=== PATIENT | female | born 1985 | race Caucasian/White ===

== ENCOUNTER 2019-11-10 17:34 | Emergency (ER) | payer MEDICAID, SELFPAY ==
[2019-11-10 18:51] VITALS: BP 150/83; PULSE 96; RESP 18; TEMP 36.4; O2SAT 99; BMI 35.2
== END 2019-11-10 19:30 | disposition left against medical advice (07) ==
LOC: ER 19:46
PROVIDERS: Emergency Provider Nurse Practitioner Family; Family Provider Nurse Practitioner Family; PCP Family Medicine
DX: Z53.21 Procedure and treatment not carried out due to patient leaving prior to being seen by health care provider (principal)
CPT/HCPCS: 99281

== ENCOUNTER 2019-11-11 18:52 | Emergency (ER) | payer MEDICAID, SELFPAY ==
[2019-11-11 19:42] VITALS: BP 121/81; PULSE 98; RESP 16; TEMP 36.7; O2SAT 98; BMI 35.2
[2019-11-11 20:58] VITALS: BP 106/61; PULSE 80; RESP 17; O2SAT 98
[2019-11-11] MEDS: acetaminophen-codeine 300-30mg Tablet 1 TAB PO ×2 (21:16→22:23)
[2019-11-11 22:23] VITALS: BP 117/78; PULSE 77; RESP 18; TEMP 36.8; O2SAT 98
--- NOTE | 2019-12-19 02:19 | ED_ITS ---
HPI - General Adult General: Chief complaint: General Medical Stated complaint: ABSCESS UNDER L ARM Time Seen by Provider: 11/11/19 20:21 History of Present Illness: HPI narrative: Abscess in her left arm for a few days getting bigger Onset (ago): day(s) Associated symptoms: Deny chest pain, dyspnea, headache(s), nausea, rash or vomiting Review of Systems Const: Denies: fever, chills or body aches Eyes: Denies: change in vision or blurry vision ENMT: Denies: throat pain or nasal congestion Card: Denies: chest pain or shortness of breath on exertion Resp: Denies: shortness of breath, productive cough or non-productive cough GI: Denies: abdominal pain, nausea or vomiting Musc: Denies: extremity pain Skin/Breast: Reports: other (Abscess left armpit); Denies: rash Neuro: Denies: headache Psych: Denies: anxiety or depression Finn/Lymph: Denies: easy bruising PFSH ED PFSH: Social History Smoking and tobacco status: current every day smoker Female Reproductive History: Date of last menstrual period: 11/04/19 Physical Exam Const: COMMON NORMALS: no apparent distress, average body habitus and oriented x3 HENMT: COMMON NORMALS: normocephalic HEAD & SCALP: normal to inspection and normocephalic FACE & SINUS: normal facial exam Eye: COMMON NORMALS: conjunctivae normal GENERAL EYE: normal appearance of both eyes CONJUNCTIVA: Yes conjunctivae normal Neck/C-Spine: COMMON NORMALS: no JVD Chest: COMMONS NORMALS: inspection of chest normal Resp: COMMON NORMALS: normal respiratory effort and clear to auscultation bilaterally AUSCULTATION: clear to auscultation bilaterally Cardio: COMMON NORMALS: no JVD, regular rate and regular rhythm RATE: regular rate RHYTHM: regular rhythm GI: COMMON NORMALS: normal to inspection, nondistended, normoactive bowel sounds Extremity: COMMON NORMALS: normal to inspection and full ROM Neuro: COMMON NORMALS: oriented x3 Skin: NARRATIVE SKIN EXAM: Erythematous area and left armpit without drainage Procedures Abscess I/D Site: other (Left armpit armpit) Side (if applicable): left Local Anesthetic: lidocaine 1% Amount of anesthesia used (mL): 2 Amount of fluid expressed (mL): 1.5 Course Vital Signs: Vital signs: Vital Signs Temperature 98.2 F 11/11/19 22:23 Pulse Rate 77 11/11/19 22:23 Respiratory Rate 18 11/11/19 22:23 Blood Pressure 117/78 11/11/19 22:23 Pulse Oximetry 98 11/11/19 22:23 Discharge Plan Discharge Patient Disposition: Home, Self-Care Clinical Impression: Abscess Condition: Stable Prescriptions: New Tylenol-Codeine #3 300-30 mg tablet 1 tab PO Q8H PRN (Reason: pain) Qty: 3 RF: 0 Discharge Orders: Discharge Order (Routine); Ordered 11/11/19 Ordered By: Omar Womack Referrals: Tamika Muse FNP [Family Provider] - Nita Soliman DO [Primary Care Provider] - Patient Instructions: Abscess Incision and Drainage (ED) Activity Restrictions/Additional Instructions: Follow-up with medical provider as directed. Take medications as prescribed. Return to the ER are your medical provider if condition worsens. Read and understand discharge instructions. Patient pull packing out in 2 days. Discharge Date/Time: 11/11/19 22:27 Coding Level of Care Code ED High Risk Case Manager for Joseline Cisneros
== END 2019-11-11 22:27 | disposition home or self-care (01) ==
PROVIDERS: Emergency Provider Emergency Medicine; Family Provider Nurse Practitioner Family; PCP Family Medicine
DX: L02.412 Cutaneous abscess of left axilla (principal); F17.210 Nicotine dependence, cigarettes, uncomplicated
CPT/HCPCS: 10060; 99281

== ENCOUNTER 2020-01-02 05:59 | Emergency (ER) | payer MEDICAID, SELFPAY ==
[2020-01-02 06:06] VITALS: BP 153/96; PULSE 101; RESP 16; O2SAT 96; BMI 35.2
--- NOTE | 2020-01-02 06:07 | W.ED.BACK ---
HPI - Back Pain/Injury General: Chief Complaint: Psychiatric Symptoms Stated Complaint: DEPRESSION/ OUT OF MEDS Time Seen by Provider: 01/02/20 06:05 Source: patient and EMS Mode of arrival: EMS History of Present Illness: HPI Narrative: 34-year-old female has a history of anxiety along with back pain. She states she has had back pain over the last few weeks the sharp in nature and rates it a 2 out of 10. She states she is also had difficulty sleeping and anxiety. She denies any suicidal or homicidal ideations. MD elicited complaint: back pain Pertinent past history: prior back pain Onset (ago): day(s) Timing: constant Severity: mild Pain scale (0-10): 3 Similar Symptoms Previously: Yes Quality: sharp Location: lumbar spine Radiation: none Exacerbating factors: none Relieving factors: none Associated symptoms: Reports no associated symptoms; Deny abdominal pain, chills, dysuria, fever(s), nausea or vomiting Work related injury: No Review of Systems Const: Denies: fever, chills, body aches or change in appetite Eyes: Denies: blurry vision or eye discomfort ENMT: Denies: throat pain or dental pain Card: Denies: chest pain Resp: Denies: shortness of breath GI: Denies: abdominal pain, nausea, vomiting or diarrhea : Denies: painful urination Musc: Reports: back pain; Denies: neck pain Skin/Breast: Denies: rash Neuro: Denies: headache Psych: Denies: depression Finn/Lymph: Denies: easy bruising All/Imm: Denies: hives PFS ED PFSH: Social History Smoking and tobacco status: current every day smoker Female Reproductive History: Date of last menstrual period: 11/04/19 Physical Exam Const: COMMON NORMALS: no apparent distress, oriented x3 and healthy appearing HENMT: COMMON NORMALS: normocephalic and head/scalp atraumatic HEAD & SCALP: normocephalic and atraumatic Eye: COMMON NORMALS: PERRL and EOMs intact bilaterally PUPIL: Yes PERRL Neck/C-Spine: COMMON NORMALS: full ROM and supple Chest: COMMONS NORMALS: inspection of chest normal and palpation of chest normal Resp: COMMON NORMALS: normal respiratory effort, no retractions, no use of accessory muscles and clear to auscultation bilaterally AUSCULTATION: clear to auscultation bilaterally Cardio: COMMON NORMALS: regular rate, regular rhythm and no murmurs RATE: regular rate RHYTHM: regular rhythm GI: COMMON NORMALS: normal to inspection, nondistended, normoactive bowel sounds, soft to palpation, non-tender and no masses PALPATION: Yes soft Back/Pelvis: OTHER: Paraspinal tenderness with no midline tenderness. Extremity: COMMON NORMALS: normal to inspection and full ROM Neuro: COMMON NORMALS: oriented x3, moves all extremities and no focal motor deficits Psych: COMMON NORMALS: mental status grossly normal, thought process normal and cooperative THOUGHT PROCESS: normal thought process Skin: COMMON NORMALS: no rashes or lesions noted and no wounds GENERAL SKIN EXAM: no rashes or lesions noted Course Vital Signs: Vital signs: Vital Signs Pulse Rate 93 01/02/20 06:41 Respiratory Rate 17 01/02/20 06:41 Blood Pressure 102/66 01/02/20 06:41 Pulse Oximetry 100 01/02/20 06:41 MDM - Back Pain/Injury MDM Narrative: Medical decision making narrative: Patient presents with back pain that is chronic in nature. Exam here is benign. Patient also has anxiety with no suicidality. Patient is stable for discharge and is return if worsening. Discharge Plan Discharge Patient Disposition: Home, Self-Care Clinical Impression: Anxiety Low back pain Qualifiers: Chronicity: acute Back pain laterality: bilateral Sciatica presence: without sciatica Qualified Code(s): M54.5 - Low back pain Condition: Stable Prescriptions: New Robaxin-750 750 mg tablet 750 mg PO Q6H Qty: 30 RF: 0 EC-Naprosyn 500 mg tablet,delayed release (DR/EC) 500 mg PO BID PRN (Reason: pain) Qty: 20 RF: 0 gabapentin 300 mg capsule 300 mg PO Q8H Qty: 60 RF: 0 hydroxyzine HCl 10 mg tablet 10 mg PO Q8H PRN (Reason: anxiety) Qty: 30 RF: 0 propranolol 20 mg tablet 10 mg PO BID Qty: 60 RF: 0 trazodone 100 mg tablet 100 mg PO DAILY Qty: 20 RF: 0 Geodon 60 mg capsule 60 mg PO BID Qty: 60 RF: 0 fluoxetine 20 mg capsule 20 mg PO DAILY Qty: 30 RF: 0 No Action Tylenol-Codeine #3 300-30 mg tablet 1 tab PO Q8H PRN (Reason: pain) Qty: 3 RF: 0 Discharge Orders: Discharge Order (Routine); Ordered 01/02/20 Ordered By: Marisa Pimentel Referrals: Tamika Muse FNP [Family Provider] - Nita Soliman DO [Primary Care Provider] - 1-3 days Discharge Diet: Advance as tolerated Discharge Activity: Resume usual activity Patient Instructions: Back Pain (ED), Anxiety (ED) Discharge Date/Time: 01/02/20 06:50 Coding Level of Care Code ED Certified Medication Technician for Chg Fwd Exam Comprehensive
[2020-01-02] MEDS: naproxen 500 mg Tablet PO (06:18)
[2020-01-02] MEDS: LORazepam 1 mg Tablet PO (06:18)
[2020-01-02 06:23] VITALS: BP 130/92; PULSE 102; RESP 17; O2SAT 93
[2020-01-02 06:41] VITALS: BP 102/66; PULSE 93; RESP 17; O2SAT 100
== END 2020-01-02 06:50 | disposition home or self-care (01) ==
LOC: ER 06:51
PROVIDERS: Emergency Provider Emergency Medicine; Family Provider Nurse Practitioner Family; PCP Family Medicine
DX: F41.9 Anxiety disorder, unspecified (principal); M54.5 Low back pain; F17.200 Nicotine dependence, unspecified, uncomplicated
CPT/HCPCS: 99284

== ENCOUNTER → 2020-01-05 13:09 | Outpatient (BNVA) | payer MEDICAID, SELFPAY | PROVIDERS: Family Provider Nurse Practitioner Family; PCP Family Medicine; Visit Provider Psychiatry & Neurology Psychiatry | DX: F60.3 Borderline personality disorder (principal); F33.2 Major depressive disorder, recurrent severe without psychotic features; F15.20 Other stimulant dependence, uncomplicated; F12.20 Cannabis dependence, uncomplicated; F10.20 Alcohol dependence, uncomplicated | CPT/HCPCS: 99204 ==

== ENCOUNTER → 2020-02-16 08:50 | Outpatient (BNVA) | payer MEDICAID, SELFPAY | PROVIDERS: Family Provider Nurse Practitioner Family; PCP Family Medicine; Visit Provider Psychiatry & Neurology Psychiatry | DX: F33.2 Major depressive disorder, recurrent severe without psychotic features (principal); F60.3 Borderline personality disorder; F10.20 Alcohol dependence, uncomplicated; F12.20 Cannabis dependence, uncomplicated; F15.20 Other stimulant dependence, uncomplicated | CPT/HCPCS: 99213 ==

== ENCOUNTER → 2020-05-11 07:52 | Outpatient (BNVA) | payer MEDICAID, SELFPAY | PROVIDERS: Family Provider Nurse Practitioner Family; PCP Family Medicine; Visit Provider Psychiatry & Neurology Psychiatry | DX: F60.3 Borderline personality disorder (principal); F33.2 Major depressive disorder, recurrent severe without psychotic features; F15.20 Other stimulant dependence, uncomplicated; F12.20 Cannabis dependence, uncomplicated; F10.20 Alcohol dependence, uncomplicated | CPT/HCPCS: 99213 ==

== ENCOUNTER → 2020-08-08 08:14 | Outpatient (BNVA) | payer MEDICAID, SELFPAY | PROVIDERS: Family Provider Nurse Practitioner Family; PCP Family Medicine; Visit Provider Psychiatry & Neurology Psychiatry | DX: F33.2 Major depressive disorder, recurrent severe without psychotic features (principal); F60.3 Borderline personality disorder; F10.20 Alcohol dependence, uncomplicated; F12.20 Cannabis dependence, uncomplicated; F15.20 Other stimulant dependence, uncomplicated | CPT/HCPCS: 99213 ==

== ENCOUNTER → 2020-10-19 08:32 | Outpatient (BNVA) | payer MEDICAID, SELFPAY | PROVIDERS: Family Provider Nurse Practitioner Family; PCP Family Medicine; Visit Provider Psychiatry & Neurology Psychiatry | DX: F33.2 Major depressive disorder, recurrent severe without psychotic features (principal); F60.3 Borderline personality disorder; F10.20 Alcohol dependence, uncomplicated; F12.20 Cannabis dependence, uncomplicated; F15.20 Other stimulant dependence, uncomplicated | CPT/HCPCS: 99213 ==

== ENCOUNTER 2021-02-14 17:46 | Emergency (ER) | payer MEDICAID, SELFPAY ==
[2021-02-14 17:50] VITALS: BP 118/82; PULSE 105; RESP 18; TEMP 36.6; O2SAT 99; BMI 32.9
--- NOTE | 2021-02-14 18:04 | ED_ITS ---
HPI - Anxiety General: Chief Complaint: Anxiety Stated Complaint: 5 months preg, anxiety, numbness in arms/hands Time Seen by Provider: 02/14/21 18:01 History of Present Illness: HPI narrative: Patient is a 5-month 35-year-old female comes to the ED with bilateral upper extremity numbness and tingling and anxiety. Patient says the numbness and tingling in her arms is bilateral and started over 4 months ago. She says it is worse at night when she is sleeping. She says that the numbness and tingling starts around the elbow and goes down into the hand. She also describes it as being painful and she rates the painful as well. Patient also reports having a lot of anxiety. Patient was taking anxiety meds along with Prozac and removed her acute anxiety meds but kept her on Prozac. She says her anxiety symptoms have been worse over the last week. Patient denies any fever, chills, OB complaints, abdominal pain, bladder or bowel symptoms. She denies any vaginal bleeding or vaginal discharge and movements are normal. Associated symptoms: Deny chest pain, chills, fever(s), headache(s), nausea, palpitations or vomiting Review of Systems Const: Denies: fever(s), chills or fatigue Eyes: Denies: change in vision or eye discomfort ENMT: Denies: throat pain, odynophagia, nasal discharge or nasal congestion Card: Denies: chest pain, palpitations, edema, swelling of feet/ankles, dyspnea on exertion or orthopnea Resp: Denies: dyspnea, productive cough or non-productive cough GI: Denies: abdominal pain, nausea, vomiting, diarrhea, constipation or hematochezia : Denies: flank pain, dysuria or hematuria Musc: Reports: extremity pain (bilateral hand and forearm numbness/tingling); Denies: neck pain, back pain or extremity swelling Skin/Breast: Denies: rash or new lesions Neuro: Denies: headache(s), numbness in extremities or weakness in extremities Psych: Reports: anxiety PFSH ED PFSH: Social History Smoking and tobacco status: current every day smoker cigarettes Packs smoked per day: 0.5 Years cigarettes smoked: 22 Quit status (tobacco): has tried quititng Number of times tried to quit tobacco: 3 Second hand smoke exposure: Yes Smoking risk assessment/counseling performed?: Yes Tobacco counseling given: counseling >3 minutes Female Reproductive History: Date of last menstrual period: 11/04/19 Physical Exam Const: COMMON NORMALS: no acute distress, patient oriented x3 and alert GENERAL APPEARANCE: cooperative, comfortable and anxious HENMT: COMMON NORMALS: normocephalic HEAD & SCALP: normocephalic MOUTH: Normal oral and palatal mucosa present THROAT: posterior oropharynx normal and uvula midline Neck/C-Spine: COMMON NORMALS: supple GENERAL: Yes normal visual inspection Resp: COMMON NORMALS: normal respiratory effort, No retractions, No use of accessory muscles and clear to auscultation bilaterally AUSCULTATION: clear to auscultation bilaterally Cardio: COMMON NORMALS: regular rate, regular rhythm, S1 normal heart sound present, S2 normal heart sound present, No gallops present (Cardio), No clicks present (Cardio), No murmurs present (Cardio) and Peripheral pulses 2+ throughout RATE: regular rate RHYTHM: regular rhythm HEART SOUNDS: S1 normal heart sound present and S2 normal heart sound present PERIPHERAL PULSES: Peripheral pulses 2+ throughout GI: COMMON NORMALS: Normal to inspection, nondistended, normoactive bowel sounds present, Soft to palpation, non-tender and no masses PALPATION: Yes Soft to palpation : COMMON NORMALS: Yes no CVA tenderness BLADDER/KIDNEY EXAM: Yes no CVA tenderness Back/Pelvis: COMMON NORMALS: no CVA tenderness Extremity: GENERAL: Yes normal exam except as noted RIGHT UPPER EXTREMITY: Yes wrist Right wrist: Yes ROM (full), Yes neurovascular exam (intact) and Yes special tests Right wrist special tests: Tinel's test: Positive and Phalen's test: Positive LEFT UPPER EXTREMITY: Yes wrist Left wrist: Yes ROM (full), Yes neurovascular exam (intact) and Yes special tests Left wrist special tests: Tinel's test: Positive and Phalen's test: Positive Neuro: COMMON NORMALS: patient oriented x3 and moves all extremities SENSORIUM/ORIENTATION: Yes alert Psych: COMMON NORMALS: mental status grossly normal, Normal thought process present and cooperative ATTITUDE: Yes engaged ACTIVITY/MOTOR BEHAVIOR: Yes appropriate eye contact SPEECH: Yes excessive and Yes rapid MOOD & AFFECT: Yes anxious THOUGHT PROCESS: Normal thought process present AT TENTION/CONCENTRATION: Yes attention grossly intact and Yes concentration grossly intact INSIGHT: Good insight present (Psych) JUDGEMENT: Good judgement present (Psych) Skin: GENERAL SKIN EXAM: dry skin Course ED course: I used a Doppler to check patient's heart tones. I was able to capture heart tones and heart rate was ranging from 125-140 bpm. Vital Signs: Vital signs: Vital Signs Temperature 97.8 F 02/14/21 17:50 Pulse Rate 96 02/14/21 21:15 Respiratory Rate 18 02/14/21 21:15 Blood Pressure 122/90 02/14/21 18:08 Pulse Oximetry 99 02/14/21 21:15 MDM - Anxiety MDM Narrative: Medical decision making narrative: Patient is a 35-year-old female that is currently 5 months and comes to the ED with anxiety and bilateral upper extremity numbness and tingling. Patient appears in no acute distress or pain but does seem a little anxious. Patient has no complaints about her and denies any dysuria, hematuria, vaginal bleeding or discharge and says that movements are normal. She says that she used to be on some anxiety meds but since she found out she was a month ago she was taken off of them. Bilateral numbness tingling in upper extremities is positional and usually occurs at night in starts at her elbows goes down to her hands. Exam findings remarkable for positive Tinel's test and positive Phalen's test in right and left wrist. Findings suggestive of carpal tunnel syndrome. Doppler was used and heart tones were captured ranging from 125 to 140 bpm. Patient was given a dose of Vistaril while here in the ED. She was diagnosed with anxiety and carpal tunnel syndrome when she was discharged with 2 universal wrist splints to use to help with her carpal tunnel syndrome. She is also discharged with a prescription for Vistaril. She was told to follow-up with her OB at her next scheduled appointment. Return to ED precautions given. Patient understood and agree with plan. Discharge Plan Discharge Patient Disposition: Home Clinical Impression: Anxiety Carpal tunnel syndrome Qualifiers: Laterality: bilateral Qualified Code(s): G56.03 - Carpal tunnel syndrome, bilateral upper limbs Condition: Stable Prescriptions: New Vistaril 50 mg capsule 50 mg PO BID PRN (Reason: anxiety) Qty: 12 RF: 0 No Action fluoxetine 20 mg capsule 20 mg PO DAILY Qty: 30 RF: 2 cyclobenzaprine 10 mg Tablet 10 mg PO TID PRN (Reason: muscle cramps) RF: 0 1 tab PO DAILY RF: 0 omeprazole 1 tab PO DAILY RF: 0 Discharge Orders: Discharge ED (Routine); Ordered 02/14/21 Ordered By: Mark Mcwilliams Discharge Diet: Regular Discharge Activity: Resume usual activity Patient Instructions: Carpal Tunnel Syndrome Exercises (GEN), Carpal Tunnel Syndrome (ED), Anxiety (ED) Activity Restrictions/Additional Instructions: Follow-up with your OB doctor at your next scheduled appointment on February 23. Take medications as prescribed. Purchase [id number] wrist braces to help with carpal tunnel syndrome. Take [id number] Tylenol per bottle instructions for pain. Return to the ER or your medical provider if condition worsens. Please read and understand discharge instructions. If any questions, please ask. Coding Level of Care Code ED Tool Machine Setup Operator for Joseline Fwsusie Exam Comprehensive
[2021-02-14 18:08] VITALS: BP 122/90; PULSE 99; RESP 16; O2SAT 97
--- NOTE | 2021-02-14 18:17 | PC.NURSE ---
Read and agree with assessment.
[2021-02-14] MEDS: HYDROcodone-acetaminophen 5-325 mg Tablet 1 TAB PO (18:29)
[2021-02-14] MEDS: hyDROXYzine 25 mg Capsule 50 MG PO (18:29)
[2021-02-14 21:15] VITALS: PULSE 96; RESP 18; O2SAT 99
== END 2021-02-14 21:09 | disposition home or self-care (01) ==
PROVIDERS: Emergency Provider Physician Assistant
DX: G56.03 Carpal tunnel syndrome, bilateral upper limbs (principal); F41.9 Anxiety disorder, unspecified; F17.210 Nicotine dependence, cigarettes, uncomplicated
CPT/HCPCS: 99283

== ENCOUNTER 2021-12-14 20:26 | Inpatient (IN) | payer MEDICAID, SELFPAY ==
[2021-12-14 20:32] VITALS: BP 121/82; PULSE 98; RESP 16; TEMP 36.8; O2SAT 98; BMI 35.2
--- NOTE | 2021-12-14 20:50 | W.ED.PSYCHS ---
Documented by User: ADÁN Jackson 12/14/21 23:41 HPI - Psych General: Chief Complaint: Psychiatric Symptoms Stated Complaint: SI Time Seen by Provider: 12/14/21 20:50 History of Present Illness: 36-year-old female comes in today with complaints of dyspnea and suicidal ideation. Patient reported that she just wants to get back home to [facility]. Patient reports that she does feel suicidal but believes he will be better when she got back home. Patient had made her way to [place] to visit with somebody since then has had increasing shortness of breath. Patient is concerned that she may have Covid. Patient appears anxious. Patient appears well. Patient appears in no pain. Patient does have a history of substance abuse disorder, borderline personality disorder, nicotine dependence. Patient reports no recent alcohol use, cannabis use, or other drug use. Patient recently gave to a boy 7 months ago. Patient does take routine medications for psychiatric disorder. MD complaint: suicidal ideation Onset (ago): day(s) Duration: intermittent History of same: Yes Relieving factors: none Exacerbating factors: drug use Context: significant life stressor (Away from home) Associated psychiatric symptoms: suicidal ideation and racing thoughts Associated symptoms: Reports depression and suicidal ideation Treatments prior to arrival: none If self harm: admits thoughts of self harm Review of Systems General: Reports: 10 or more systems reviewed and unremarkable except in HPI and below Resp: Reports: dyspnea Psych: Reports: depression and suicidal ideation [facility] PFSH: Social History Smoking and tobacco status: current every day smoker cigarettes Packs smoked per day: 0.5 Years cigarettes smoked: 22 Quit status (tobacco): has tried quititng Number of times tried to quit tobacco: 3 Second hand smoke exposure: Yes Smoking risk assessment/counseling performed?: Yes Tobacco counseling given: counseling >3 minutes Female Reproductive History: Date of last menstrual period: 11/04/19 Physical Exam Const: COMMON NORMALS: alert HENMT: COMMON NORMALS: atraumatic HEAD & SCALP: atraumatic NOSE: Normal nares present THROAT: posterior oropharynx normal Resp: COMMON NORMALS: normal respiratory effort and clear to auscultation bilaterally AUSCULTATION: clear to auscultation bilaterally Cardio: COMMON NORMALS: regular rate and regular rhythm RATE: regular rate RHYTHM: regular rhythm Extremity: COMMON NORMALS: normal to inspection Neuro: SENSORIUM/ORIENTATION: Yes alert Psych: COMMON NORMALS: cooperative and speech normal APPEARANCE: Yes unkempt ATTITUDE: Yes calm ACTIVITY/MOTOR BEHAVIOR: Yes fidgeting and Yes disorganized behavior SPEECH: Yes normal speech MOOD & AFFECT: Yes anxious THOUGHT PROCESS: disorganized THOUGHT CONTENT: Yes Suicidality present INSIGHT: Fair insight present (Psych) JUDGEMENT: Fair judgement present (Psych) Skin: COMMON NORMALS: no rashes or lesions noted GENERAL SKIN EXAM: no rashes or lesions noted Course Reevaluation(s): Reevaluation #1: 2300, reviewed with patient all of her labs were back and normal. Discussed with patient about being transferred to another psychiatric unit due to our unit being full at this time. Patient does not want to be transferred and wants to stay here to be admitted to our unit when it becomes available. I reviewed this with Dr. Long who recommended we discussed this with the psychiatrist Dr. Antonio on his opinion whether a bed will become available in the next 24 hours and whether he would accept this patient. Consultations: Consultation #1: 2330, reviewed patient with Dr. Antonio for admission to [facility] for SI and substance use disorder. He agreed to admission for SI. Vital Signs: Vital signs: Vital Signs Temperature 98.3 F 12/14/21 20:32 Pulse Rate 98 12/14/21 20:32 Respiratory Rate 16 12/14/21 20:32 Blood Pressure 121/82 12/14/21 20:32 Pulse Oximetry 98 12/14/21 20:32 [facility] - Psych Medical Decision Making 36-year-old female comes in today with complaints of dyspnea and SI. Patient was concerned that she may have COVID-19. Patient seem very anxious on exam. When questioned about her SI patient did not have any plan. Patient does have a history of substance use disorder. Respirations were even lungs were clear to auscultation. Vital signs were normal. Differential diagnosis includes not limited to anxiety, viral syndrome, PE, suicidal ideation, substance use disorder. Laboratory values were negative for D-dimer, chest x-ray was normal, CBC showed some mild leukocytosis at 15, CMP was unremarkable. hCG was negative. Urine was clear. COVID-19 test was negative. Patient was given 1 mg of Ativan for her anxiety which improved her shortness of breath. Patient was given 10 mg of Zyprexa for further symptom relief. I reviewed patient with Dr. Long he recommended we discussed that with psychiatrist on-call, Dr. Bruce. He agreed to admission to [facility] for further evaluation and treatment. Lab Data : 12/14/21 21:16 12/14/21 21:16 Radiology Impressions Chest X-Ray 12/14/21 20:51 IMPRESSION: No acute cardiopulmonary process. Laboratory Results WBC 15.4 10^3/uL (4.0-10.0) H 12/14/21 21:16 RBC 5.15 10^6/uL (4.1-5.3) 12/14/21 21:16 Hgb 13.5 g/dL (11.5-15.3) 12/14/21 21:16 Hct 42.3 % (37.0-47.0) 12/14/21 21:16 MCV 82.1 fl (81-99) 12/14/21 21:16 MCH 26.2 pg (28.0-34.0) L 12/14/21 21:16 MCHC 31.9 g/dL (30.0-36.0) 12/14/21 21:16 RDW 15.3 % (12.1-15.1) H 12/14/21 21:16 Plt Count 565 10^3/cmm (130-400) H 12/14/21 21:16 MPV 8.6 fL (7.4-10.4) 12/14/21 21:16 Neut % (Auto) 62.9 % 12/14/21 21:16 Lymph % (Auto) 29.5 % 12/14/21 21:16 Bee % (Auto) 4.2 % 12/14/21 21:16 Eos % (Auto) 2.4 % 12/14/21 21:16 Baso % (Auto) 0.7 % 12/14/21 21:16 Neut # (Auto) 9.67 10^3/uL (1.8-7.7) H 12/14/21 21:16 Lymph # (Auto) 4.5 10^3/uL (0.8-4.8) 12/14/21 21:16 Bee # (Auto) 0.6 10^3/uL (0.2-0.9) 12/14/21 21:16 Eos # (Auto) 0.4 10^3/uL (0.0-0.8) 12/14/21 21:16 Baso # (Auto) 0.1 10^3/uL (0.0-0.1) 12/14/21 21:16 Nucleated RBC % (auto) 0 % 12/14/21 21:16 Nucleated RBCs # 0.0 /100WBC 12/14/21 21:16 D-Dimer 0.37 ug/mIFEU (0-0.59) 12/14/21 21:16 Sodium 141 mmol/L (136-145) 12/14/21 21:16 Potassium 4.4 mmol/L (3.5-5.1) 12/14/21 21:16 Chloride 104 mmol/L (98-107) 12/14/21 21:16 Carbon Dioxide 26 mmol/L (22-29) 12/14/21 21:16 Anion Gap 15.4 (5-19) 12/14/21 21:16 BUN 13 mg/dL (6-20) 12/14/21 21:16 Creatinine 0.7 mg/dL (0.5-0.9) 12/14/21 21:16 GFR Calculation 93.6 mL/min (90-130) 12/14/21 21:16 Glucose 163 mg/dL (65-115) H 12/14/21 21:16 Calculated Osmolality 296 mOsm/kg (285-295) H 12/14/21 21:16 Calcium 10.0 mg/dL (8.5-10.5) 12/14/21 21:16 Total Bilirubin 0.2 mg/dL (0.15-1.2) 12/14/21 21:16 AST 15 U/L (0-32) 12/14/21 21:16 ALT 20 U/L (0-33) 12/14/21 21:16 Alkaline Phosphatase 97 IU/L (35-105) 12/14/21 21:16 Total Protein 8.0 g/dL (6.6-8.7) 12/14/21 21:16 Albumin 4.6 g/dL (3.5-5.2) 12/14/21 21:16 Globulin 3.4 g/dL (1.3-4.6) 12/14/21 21:16 TSH 1.21 uIU/mL (0.27-4.20) 12/14/21 21:16 HCG, Qual Negative (Negative) 12/14/21 21:32 Urine Color Yellow (Yellow) 12/14/21 21:32 Urine Appearance Clear (CLEAR) 12/14/21 21:32 Urine pH 5 (5-7) 12/14/21 21:32 Ur Specific [place] 1.020 (1.005-1.030) 12/14/21 21:32 Urine Protein Neg (Negative) 12/14/21 21:32 Urine Glucose (UA) Norm (Normal) 12/14/21 21:32 Urine Ketones Negative (Negative) 12/14/21 21:32 Urine Blood Neg (Negative) 12/14/21 21:32 Urine Nitrate Negative (Negative) 12/14/21 21:32 Urine Bilirubin Neg (Negative) 12/14/21 21:32 Urine Urobilinogen Norm mg/dL (Negative) 12/14/21 21:32 Ur Leukocyte Esterase Negative (Negative) 12/14/21 21:32 Salicylates 4.6 mg/dL (3-10) 12/14/21 21:16 Urine Opiates Screen Negative ng/mL (Negative) 12/14/21 21:32 Acetaminophen < 5.0 ug/mL (10-30) L 12/14/21 21:16 Ur Barbiturates Screen Negative ng/mL (Negative) 12/14/21 21:32 Ur Phencyclidine Scrn Negative ng/mL (Negative) 12/14/21 21:32 Ur Amphetamines Screen Positive ng/mL (Negative) H 12/14/21 21:32 U Benzodiazepines Scrn Negative ng/mL (Negative) 12/14/21 21:32 Urine Cocaine Screen Negative ng/mL (Negative) 12/14/21 21:32 U Marijuana (THC) Screen Positive ng/mL (Negative) H 12/14/21 21:32 Ethyl Alcohol < 10 mg/dL (0-10) 12/14/21 21:16 SARS-CoV-2 Ag (Rapid) Negative (Negative) 12/14/21 21:07 EKG Data EKG 1: EKG interpretation date: 12/14/21 EKG interpretation time: 21:19 Prior EKG tracings: not available for review Interpretation: EKG shows a regular rate at 82 bpm and the sinus rhythm. No ST elevation. No ectopy. No axis deviation. Discharge Plan Discharge Patient Disposition: Admitted As Inpatient Clinical Impression: Suicidal ideation, Major depressive disorder, recurrent severe without psychotic features, Substance use disorder Condition: Stable Coding Level of Care Code ED Aluminum Sheet Cutter for Chg Fwd Exam Detailed Medical Decision Making Moderate Complexity Time Spent (min) 40 Documented by User: Juan Long DO 12/15/21 00:35 HPI - Psych General: Chief Complaint: Psychiatric Symptoms Stated Complaint: SI Time Seen by Provider: 12/14/21 20:50 PFSH ED PFSH: Social History Smoking and tobacco status: current every day smoker cigarettes Packs smoked per day: 0.5 Years cigarettes smoked: 22 Quit status (tobacco): has tried quititng Number of times tried to quit tobacco: 3 Second hand smoke exposure: Yes Smoking risk assessment/counseling performed?: Yes Tobacco counseling given: counseling >3 minutes Course Vital Signs: Vital signs: Vital Signs Temperature 98.3 F 12/14/21 20:32 Pulse Rate 98 12/14/21 20:32 Respiratory Rate 16 12/14/21 20:32 Blood Pressure 121/82 12/14/21 20:32 Pulse Oximetry 98 12/14/21 20:32 MDM - Psych Medical Decision Making 36-year-old female comes in today with complaints of dyspnea and SI. Patient was concerned that she may have COVID-19. Patient seem very anxious on exam. When questioned about her SI patient did not have any plan. Patient does have a history of substance use disorder. Respirations were even lungs were clear to auscultation. Vital signs were normal. Differential diagnosis includes not limited to anxiety, viral syndrome, PE, suicidal ideation, substance use disorder. Laboratory values were negative for D-dimer, chest x-ray was normal, CBC showed some mild leukocytosis at 15, CMP was unremarkable. hCG was negative. Urine was clear. COVID-19 test was negative. Patient was given 1 mg of Ativan for her anxiety which improved her shortness of breath. Patient was given 10 mg of Zyprexa for further symptom relief. I reviewed patient with Dr. Long he recommended we discussed that with psychiatrist on-call, Dr. Bruce. He agreed to admission to [facility] for further evaluation and treatment. This patient was originally seen by ADÁN Dumont.? I agree with his history, evaluation, and treatment. Lab Data : 12/14/21 21:16 12/14/21 21:16 Radiology Impressions Chest X-Ray 12/14/21 20:51 IMPRESSION: No acute cardiopulmonary process. Laboratory Results WBC 15.4 10^3/uL (4.0-10.0) H 12/14/21 21:16 RBC 5.15 10^6/uL (4.1-5.3) 12/14/21 21:16 Hgb 13.5 g/dL (11.5-15.3) 12/14/21 21:16 Hct 42.3 % (37.0-47.0) 12/14/21 21:16 MCV 82.1 fl (81-99) 12/14/21 21:16 MCH 26.2 pg (28.0-34.0) L 12/14/21 21:16 MCHC 31.9 g/dL (30.0-36.0) 12/14/21 21:16 RDW 15.3 % (12.1-15.1) H 12/14/21 21:16 Plt Count 565 10^3/cmm (130-400) H 12/14/21 21:16 MPV 8.6 fL (7.4-10.4) 12/14/21 21:16 Neut % (Auto) 62.9 % 12/14/21 21:16 Lymph % (Auto) 29.5 % 12/14/21 21:16 Bee % (Auto) 4.2 % 12/14/21 21:16 Eos % (Auto) 2.4 % 12/14/21 21:16 Baso % (Auto) 0.7 % 12/14/21 21:16 Neut # (Auto) 9.67 10^3/uL (1.8-7.7) H 12/14/21 21:16 Lymph # (Auto) 4.5 10^3/uL (0.8-4.8) 12/14/21 21:16 Bee # (Auto) 0.6 10^3/uL (0.2-0.9) 12/14/21 21:16 Eos # (Auto) 0.4 10^3/uL (0.0-0.8) 12/14/21 21:16 Baso # (Auto) 0.1 10^3/uL (0.0-0.1) 12/14/21 21:16 Nucleated RBC % (auto) 0 % 12/14/21 21:16 Nucleated RBCs # 0.0 /100WBC 12/14/21 21:16 D-Dimer 0.37 ug/mIFEU (0-0.59) 12/14/21 21:16 Sodium 141 mmol/L (136-145) 12/14/21 21:16 Potassium 4.4 mmol/L (3.5-5.1) 12/14/21 21:16 Chloride 104 mmol/L (98-107) 12/14/21 21:16 Carbon Dioxide 26 mmol/L (22-29) 12/14/21 21:16 Anion Gap 15.4 (5-19) 12/14/21 21:16 BUN 13 mg/dL (6-20) 12/14/21 21:16 Creatinine 0.7 mg/dL (0.5-0.9) 12/14/21 21:16 GFR Calculation 93.6 mL/min (90-130) 12/14/21 21:16 Glucose 163 mg/dL (65-115) H 12/14/21 21:16 Calculated Osmolality 296 mOsm/kg (285-295) H 12/14/21 21:16 Calcium 10.0 mg/dL (8.5-10.5) 12/14/21 21:16 Total Bilirubin 0.2 mg/dL (0.15-1.2) 12/14/21 21:16 AST 15 U/L (0-32) 12/14/21 21:16 ALT 20 U/L (0-33) 12/14/21 21:16 Alkaline Phosphatase 97 IU/L (35-105) 12/14/21 21:16 Total Protein 8.0 g/dL (6.6-8.7) 12/14/21 21:16 Albumin 4.6 g/dL (3.5-5.2) 12/14/21 21:16 Globulin 3.4 g/dL (1.3-4.6) 12/14/21 21:16 TSH 1.21 uIU/mL (0.27-4.20) 12/14/21 21:16 HCG, Qual Negative (Negative) 12/14/21 21:32 Urine Color Yellow (Yellow) 12/14/21 21:32 Urine Appearance Clear (CLEAR) 12/14/21 21:32 Urine pH 5 (5-7) 12/14/21 21:32 Ur Specific [place] 1.020 (1.005-1.030) 12/14/21 21:32 Urine Protein Neg (Negative) 12/14/21 21:32 Urine Glucose (UA) Norm (Normal) 12/14/21 21: Urine Ketones Negative (Negative) 12/14/21 21: Urine Blood Neg (Negative) 12/14/21 21:32 Urine Nitrate Negative (Negative) 12/14/21 21:32 Urine Bilirubin Neg (Negative) 12/14/21 21:32 Urine Urobilinogen Norm mg/dL (Negative) 12/14/21 21:32 Ur Leukocyte Esterase Negative (Negative) 12/14/21 21:32 Salicylates 4.6 mg/dL (3-10) 12/14/21 21:16 Urine Opiates Screen Negative ng/mL (Negative) 12/14/21 21: Acetaminophen < 5.0 ug/mL (10-30) L 12/14/21 21:16 Ur Barbiturates Screen Negative ng/mL (Negative) 12/14/21 21:32 Ur Phencyclidine Scrn Negative ng/mL (Negative) 12/14/21 21:32 Ur Amphetamines Screen Positive ng/mL (Negative) H 12/14/21 21:32 U Benzodiazepines Scrn Negative ng/mL (Negative) 12/14/21 21:32 Urine Cocaine Screen Negative ng/mL (Negative) 12/14/21 21:32 U Marijuana (THC) Screen Positive ng/mL (Negative) H 12/14/21 21:32 Ethyl Alcohol < 10 mg/dL (0-10) 12/14/21 21:16 SARS-CoV-2 Ag (Rapid) Negative (Negative) 12/14/21 21:07 Discharge Plan Discharge Patient Disposition: Admitted As Inpatient Clinical Impression: Suicidal ideation, Major depressive disorder, recurrent severe without psychotic features, Substance use disorder Condition: Stable Coding Level of Care Code ED Aluminum Sheet Cutter for Joseline Fwd Exam Detailed Medical Decision Making Moderate Complexity Time Spent (min) 40
--- NOTE | 2021-12-14 20:51 | XRR_ITS ---
PROCEDURE INFORMATION: Exam: XR Chest Exam date and time: 12/14/2021 8:51 PM Age: 36 years old Clinical indication: Shortness of breath; Additional info: Short of breath 2 weeks TECHNIQUE: Imaging protocol: XR of the chest. Views: 1 view. COMPARISON: CR Chest 2 views* [id number] 12/06/2018 4:25 PM FINDINGS: Lungs: Lungs are clear bilaterally. Pleural spaces: No pleural effusion. No pneumothorax. Heart/Mediastinum: The cardiac silhouette and mediastinal contours are unremarkable. Bones/joints: Unremarkable for age. XR/XR chest 1V portable [id number] IMPRESSION: No acute cardiopulmonary process.
--- NOTE | 2021-12-14 20:51 | ECG_ITS ---
[facility] Test Date: 2021-12-14 Pat Name: Faraz Rai Department: Room: Gender: Female Reports Developer: : [id number] Requested By: Víctor Tovar Order Number: [id number] Janelle MD: CYDNEY DAVILA Measurements Intervals [place] Rate: 82 P: 27 PA: 140 QRS: -1 QRSD: 103 T: 43 QT: 387 QTc: 454 Interpretive Statements SINUS RHYTHM INTERPRETATION BASED ON A DEFAULT AGE OF 40 YEARS Compared to ECG 12/06/2018 15:54:55 No significant changes Electronically Signed On 12-14-2021 22:54:20 FIREWALL ENGINEER by CYDNEY DAVILA [id number]
[2021-12-14] MEDS: LORazepam 1 mg Tablet PO ×2 (21:18→23:10)
[2021-12-14 21:43] LABS: Basophils # 0.1 10^3/uL (0.0-0.1); Basophils % 0.7 %; Eosinophils # 0.4 10^3/uL (0.0-0.8); Eosinophils % 2.4 %; Hematocrit 42.3 % (37.0-47.0); Hemoglobin 13.5 g/dL (11.5-15.3); Lymphocytes # 4.5 10^3/uL (0.8-4.8); Lymphocytes % 29.5 %; Mean Corpuscular HGB Conc 31.9 g/dL (30.0-36.0); Mean Corpuscular Hemoglobin 26.2 pg (28.0-34.0); Mean Corpuscular Volume 82.1 fl (81-99); Mean Platelet Volume 8.6 fL (7.4-10.4); Monocytes # 0.6 10^3/uL (0.2-0.9); Monocytes % 4.2 %; Neutrophils # 9.67 10^3/uL (1.8-7.7); Neutrophils % 62.9 %; Nucleated Red Blood Cells % 0 %; Platelet Count 565 10^3/cmm (130-400); Red Blood Count 5.15 10^6/uL (4.1-5.3); Red Cell Distribution Width 15.3 % (12.1-15.1); White Blood Count 15.4 10^3/uL (4.0-10.0)
[2021-12-14 21:47] LABS: Add Urine Microscopic? NO; Charge for UA Resulting for Rev
[2021-12-14 22:01] LABS: Alanine Aminotransferase 20 U/L (0-33); Albumin Level 4.6 g/dL (3.5-5.2); Alkaline Phosphatase 97 IU/L (35-105); Anion Gap 15.4 (5-19); Aspartate Amino Transferase 15 U/L (0-32); Blood Urea Nitrogen 13 mg/dL (6-20); Carbon Dioxide 26 mmol/L (22-29); Chloride 104 mmol/L (98-107); Creatinine Clr Calc Pharmacy 133.8056; Globulin 3.4 g/dL (1.3-4.6); Glomerular Filtration Rate 93.6 mL/min (90-130); Glucose 163 mg/dL (65-115); Osmolality Calculated 296 mOsm/kg (285-295); Potassium 4.4 mmol/L (3.5-5.1); Salicylate 4.6 mg/dL (3-10); Sodium 141 mmol/L (136-145); Thyroid Stimulating Hormone 1.21 uIU/mL (0.27-4.20); Total Bilirubin 0.2 mg/dL (0.15-1.2)
[2021-12-14 22:09] LABS: Amphetamines Screen Urine Positive (Negative); Barbiturates Screen Urine Negative (Negative); Benzodiazepines Screen Urine Negative (Negative); Cocaine Screen Urine Negative (Negative); Opiate Screen Urine Negative (Negative); PCP Screen Urine Negative (Negative); THC Screen Urine Positive (Negative)
[2021-12-14 22:11] LABS: Acetaminophen < 5.0 ug/mL (10-30); Alcohol Level < 10 mg/dL (0-10)
[2021-12-14 22:15] LABS: SARS Covid-2 Antigen Negative (Negative)
[2021-12-14 22:18] LABS: Bilirubin Urine Neg (Negative); Blood Urine Neg (Negative); Glucose Urine UA Norm (Normal); Ketones Urine Negative (Negative); Leukocyte Esterase Urine Negative (Negative); Nitrate Urine Negative (Negative); Protein Urine Neg (Negative); Urine Appearance Clear (CLEAR); Urine Color Yellow (Yellow); Urobilinogen Urine Norm (Negative); pH Urine 5 (5-7)
[2021-12-14 22:41] LABS: HCG Qualitative Urine. Negative (Negative)
[2021-12-14 22:47] LABS: D Dimer 0.37 ug/mIFEU (0-0.59)
[2021-12-14] MEDS: OLANZapine 10 mg ODT PO (23:10)
[2021-12-15 12:04] VITALS: BP 120/97; PULSE 82; RESP 18; O2SAT 99
[2021-12-15 12:05] VITALS: BP 120/84; PULSE 93; RESP 18; O2SAT 100
[2021-12-15] MEDS: OLANZapine 5 mg ODT PO ×2 (12:09→18:43)
[2021-12-15] MEDS: hyDROXYzine 25 mg Capsule 50 MG PO ×2 (12:09→18:43)
[2021-12-15 14:00] VITALS: BP 120/84; PULSE 93; RESP 18; TEMP 36.8; O2SAT 100
[2021-12-15] MEDS: acetaminophen 325 mg Tablet 650 MG PO (18:43)
[2021-12-15] MEDS: trazodone 50 mg Tablet PO (21:10)
[2021-12-15 21:17] VITALS: BP 119/73; PULSE 90; RESP 18; O2SAT 97
[2021-12-15] MEDS: nicotine 2 mg Gum BUCCAL (21:24)
--- NOTE | 2021-12-15 23:10 | PC.NURSE ---
2109-rec'd trazodone for sleep. 2209- It was effective. Resting in bed with eyes closed.
[2021-12-16 04:09] VITALS: BMI 35.2
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
[2021-12-16] MEDS: BuSPIRONE 10 mg Tablet PO (10:00)
[2021-12-16] MEDS: naltrexone hcl 50 mg Tablet PO (10:00)
[2021-12-16] MEDS: naproxen 500 mg Tablet PO (10:00)
[2021-12-16] MEDS: fluoxetine 20 mg Capsule PO (10:00)
[2021-12-16] MEDS: pantoprazole DR 40 mg Tablet PO (10:01)
[2021-12-16] MEDS: ferrous sulfate EC 325 mg Tablet PO (10:01)
[2021-12-16] MEDS: OLANZapine 5 mg ODT PO (11:42)
[2021-12-16] MEDS: nicotine 2 mg Gum BUCCAL ×2 (12:07→21:04)
[2021-12-16 14:00] VITALS: BP 115/75; PULSE 93; RESP 18; TEMP 36.7; O2SAT 98
[2021-12-16] MEDS: quetiapine 100 mg Tablet PO (20:29)
[2021-12-16 21:35] VITALS: BP 132/82; PULSE 79; RESP 14; TEMP 37.1; O2SAT 99
[2021-12-17 06:00] VITALS: BP 128/78; PULSE 76; RESP 18; TEMP 36.7; O2SAT 97
[2021-12-17] MEDS: ARIPiprazole 10 mg Tablet 5 MG PO (11:32)
[2021-12-17] MEDS: ferrous sulfate EC 325 mg Tablet PO (11:33)
[2021-12-17] MEDS: naproxen 500 mg Tablet PO ×2 (11:33→18:00)
[2021-12-17] MEDS: naltrexone hcl 50 mg Tablet PO (11:34)
[2021-12-17] MEDS: pantoprazole DR 40 mg Tablet PO (11:34)
[2021-12-17] MEDS: BuSPIRONE 10 mg Tablet 15 MG PO ×2 (11:35→18:01)
[2021-12-17] MEDS: escitalopram 10 mg Tablet PO (11:35)
--- NOTE | 2021-12-17 11:59 | NPU.GN ---
[facility] Neuro[facility] Unit Group Topic: Sai Burns General Mood of Group: Sara did not attend group.
[2021-12-17] MEDS: nicotine 2 mg Gum BUCCAL (12:19)
--- NOTE | 2021-12-17 12:22 | P.NPUPN_ITS ---
Subjective NPU Subjective: Interval history: She says that she is doing significantly better. She feels like these medications are working better for her. She has not had side effects from the L exapro or the Abilify 5 mg. She says that her depression is better. She denies having any suicidal ideation. She had a few thoughts the first couple of days that she was here but feels that it is because she was in a strange place. She agreed to wait until tomorrow to make sure that she is really stable. Mental Status Exam MSE Comments: This is a 36-year-old obese female who appears older than her stated age and is in no acute distress. She was found in the day room after lunch. psychomotor activity normal Speech is at a regular rate and rhythm, normal volume, good articulation, not pressured. Alert, oriented X3 Attention and concentration appears to be adequate. Memory is intact Mood is mildly depressed. Affect is moderately dysphoric. Thought process is logical and goal-directed. Thought content: Denies auditory and visual hallucinations. No delusions or paranoia are noted. She denies current suicidal ideation since she has been in the hospital and no homicidal ideation. Fund of knowledge is average. Insight and judgment appear to be fairly poor. Impulse control is difficult to assess. Cognition: Patient Appearance: Appears Older than Age and No Eye Contact Level of Consciousness: Awake, Alert and Follows Commands Patient Cognition Impaired: Yes (meth) Ability to Follow Directions: Fair Patient Orientation (long list): Person and Birthday Comprehension Ability: Understands Concepts Hallucination Type: None Delusion Description: Not Present Thought Process: Confused and Flight of Ideas Affect: Affect Description: Flat Behavior: Patient Behavior: Appropriate and Resistive to Care Speech Pattern: Appropriate Vitals/I&O/Wt Last Vital Signs Temp 98.1 F 12/17/21 06:00 Pulse 76 12/17/21 06:00 Resp 18 12/17/21 06:00 BP 128/78 12/17/21 06:00 Pulse Ox 97 12/17/21 06:00 Weight last 48 hrs Weight 102.058 kg Data NPU : 12/14/21 21:16 12/14/21 21:16 A&P Assessment and plan (1) Borderline personality disorder: Status: Acute (2) Major depressive disorder, recurrent severe without psychotic features: Status: Acute (3) Amphetamine use disorder, severe: Status: Acute (4) Cannabis use disorder, severe, dependence: Status: Acute (5) Suicidal ideation: Status: Acute (6) Alcohol use disorder, moderate, dependence: Status: Acute Plan This is a 36-year-old female who has been previously diagnosed with borderline personality disorder from a lot of trauma as a child who reports episodic suicidal ideation and a mental breakdown the last 3 days. She says he had suicidal thoughts prior to admission but none since she has been here. Plan: 1. Change Prozac to 20 mg to Lexapro 10 mg daily. increase Abilify 10 mg tomorrrow. BuSpar to 15 mg twice a day. Continue Seroquel 100 mg at bedtime and Vistaril 50 mg 4 times a day as needed. 2. Continue every 15 minute checks for safety. 3. Encourage individual, group and milieu therapies. 4. Encourage sober living treatment after discharge at the highest level of care to which she is willing to commit. 5. We will monitor for safety for herself in the community prior to discharge. Involuntary Hold Information 96 Hour Hold: 96 Hour Involuntary Admission: No Attestations NPU Medical Necessity Statement*: Inpatient hospitalization is medically necessary and the clinically appropriate intervention at this time. We will initiate medications and make changes as indicated. 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
[2021-12-17] MEDS: hyDROXYzine 25 mg Capsule 50 MG PO (13:39)
[2021-12-17 14:00] VITALS: BP 110/61; PULSE 82; RESP 18; TEMP 36.4; O2SAT 100
[2021-12-17] MEDS: OLANZapine 5 mg ODT PO (18:00)
[2021-12-17] MEDS: blistex lip oint 7 gm Tube 1 APPLIC TOPICAL (18:57)
[2021-12-17 20:00] VITALS: BP 123/79; PULSE 80; RESP 77; TEMP 36.8; O2SAT 98
[2021-12-17] MEDS: trazodone 50 mg Tablet PO (20:25)
[2021-12-17] MEDS: quetiapine 100 mg Tablet PO (20:45)
[2021-12-18 06:00] VITALS: BP 130/70; PULSE 83; RESP 18; TEMP 36.8; O2SAT 100
--- NOTE | 2021-12-18 07:56 | W.PM.NPUDCS ---
Diagnoses at Discharge Discharge Diagnosis (1) Borderline personality disorder: Status: Acute (2) Major depressive disorder, recurrent severe without psychotic features: Status: Acute (3) Amphetamine use disorder, severe: Status: Acute (4) Cannabis use disorder, severe, dependence: Status: Acute (5) Suicidal ideation: Status: Acute (6) Alcohol use disorder, moderate, dependence: Status: Acute Reason for Visit Reason for Visit: SI Brief History: 36-year-old female comes in today with complaints of dyspnea and suicidal ideation.? Patient reported that she just wants to get back home to [facility].? Patient reports that she does feel suicidal but believes he will be better when she got back home.? Patient had made her way to [place] to visit with somebody since then has had increasing shortness of breath.? Patient is concerned that she may have Covid.? Patient appears anxious.? Patient appears well.? Patient appears in no pain.? Patient does have a history of substance abuse disorder, borderline personality disorder, nicotine dependence.? Patient reports no recent alcohol use, cannabis use, or other drug use.? Patient recently gave to a infant boy 7 months ago.? Patient does take routine medications for psychiatric disorder. MD complaint: suicidal ideation Onset (ago): day(s) Duration: intermittent History of same: Yes Relieving factors: none Exacerbating factors: drug use Context: significant life stressor (Away from home) Associated psychiatric symptoms: suicidal ideation and racing thoughts Associated symptoms: Reports depression and suicidal ideation Treatments prior to arrival: none If self harm: admits thoughts of self harm She was admitted to the neuropsychiatry unit for definitive treatment of these issues.? She was seen by Dr. Blanhcard and [facility] several times in 2019.? His initial evaluation is documented below.? Medications prescribed as of October 2020 Geodon 60 mg twice a day, Prozac 20 mg daily, Vistaril 10 mg 3 times daily, trazodone 200 mg at bedtime.? It is unclear exactly how long she took those medications.? She says that she saw a provider in [facility] where she currently lives about 7 months ago.? She says that she has seen that person monthly since then.? She is currently on Prozac 20 mg,Vistaril 50 mg 4 times a day as needed, BuSpar 10 mg twice a day and Seroquel 100 mg at bedtime.? She says that she has been doing okay.? She was missing her family and friends and came back to [place] to see them.? She was thinking about moving back but then had a nervous breakdown and has been thinking about suicide for the last few days.? She is not sure why she is worse lately.? She has decided that she is not going to move back to [place].? She said that she stopped taking the Geodon and does not want to take that again because it made her sleepy.? She is not really sure what that was for.? She says that she gets depressed and thinks about hurting herself about twice a year.? She does not think that the Prozac is doing much for her.? She thought about trying the trazodone again but decided that she wants to stay with the Seroquel 100 mg daily.? She says it does not cause increased appetite or weight gain.? She tried some Zyprexa Zydis yesterday and felt it was helpful.? She asked if she could try that.? She was told that we were concerned about weight gain with Zyprexa.? She agreed to try some Abilify.? She wants to continue taking the Vistaril 50 mg as needed.? She wanted to change Prozac to Lexapro.? She does not really want to talk much at this time.? She did not get out of bed or sit up to talk to me.? She had a lot of trauma as a child and was in foster homes much of her childhood.? That is described in Dr. Blanchard's evaluation below.? Urine drug screen was positive for methamphetamine and marijuana. Hospital Course Hospital Course She slowly acclimated to the individual, group and milieu therapies provided. Her Prozac was changed to Lexapro upon request. She did not feel the Prozac was doing anything. She also wanted to increase the BuSpar to 15 mg twice a day. She tolerated these doses and showed steady improvement during her stay. She was able to contract for safety outside hospital prior to discharge. During the hospitalization, patient had routine laboratory studies which were within normal limits except for few outliers. Additionally there was a general medical evaluation which was also within normal limits and revealed no new acute processes. Discharge Summary: At the time of discharge, lethality was denied and psychosis was resolving. Mood and anxiety were well managed. Patient endorsed a plan to follow-up with the aftercare recommendations of the treatment team. Patient was evaluated and deemed to be absent credible lethality, and had achieved the maximum benefit from an inpatient hospitalization, so was discharged. Involuntary Hold Information 96 Hour Hold: 96 Hour Involuntary Admission: No Mental Status Exam MSE Comments: This is a 36-year-old obese female who appears older than her stated age and is in no acute distress. She was found in the day room after lunch. psychomotor activity normal Speech is at a regular rate and rhythm, normal volume, good articulation, not pressured. Alert, oriented X3 Attention and concentration appears to be adequate. Memory is intact Mood is good. Affect is euthymic. Thought process is logical and goal-directed. Thought content: Denies auditory and visual hallucinations. No delusions or paranoia are noted. She denies current suicidal ideation since she has been in the hospital and no homicidal ideation. Fund of knowledge is average. Insight and judgment appear to be fairly poor. Impulse control is difficult to assess. Cognition: Patient Appearance: Appears Older than Age Level of Consciousness: Awake, Alert and Follows Commands Patient Cognition Impaired: Yes (meth) Ability to Follow Directions: Fair Patient Orientation (long list): Person and Birthday Comprehension Ability: Understands Concepts Hallucination Type: None Delusion Description: Not Present Thought Process: Confused and Flight of Ideas Affect: Affect Description: Appropriate Behavior: Patient Behavior: Appropriate Speech Pattern: Appropriate Discharge Data Studies Completed and Pending: Completed Studies During Hospitalization Category Date Time Status XR chest 1V raquel ble [id number] Urgent Exams 12/14/21 20:51 Completed Radiology Impressions Chest X-Ray 12/14/21 20:51 IMPRESSION: No acute cardiopulmonary process. Laboratory Results WBC 15.4 10^3/uL (4.0 -10.0) H 12/14/21 21:16 RBC 5.15 10^6/uL (4.1 -5.3) 12/14/21 21:16 Hgb 13.5 g/dL (11.5-1 5.3) 12/14/21 21:16 Hct 42.3 % (37.0-47.0 ) 12/14/21 21:16 MCV 82.1 fl (81-99) 12/14/21 21:16 MCH 26.2 pg (28.0-34. 0) L 12/14/21 21:16 MCHC 31.9 g/dL (30.0-3 6.0) 12/14/21 21:16 RDW 15.3 % (12.1-15.1 ) H 12/14/21 21:16 Plt Count 565 10^3/cmm (130 -400) H 12/14/21 21:16 MPV 8.6 fL (7.4-10.4) 12/14/21 21:16 Neut % (Auto) 62.9 % 12/14/21 21:16 Lymph % (Auto) 29.5 % 12/14/21 21:16 [place] % (Auto) 4.2 % 12/14/21 21:16 Eos % (Auto) 2.4 % 12/14/21 21:16 Baso % (Auto) 0.7 % 12/14/21 21:16 Neut # (Auto) 9.67 10^3/uL (1.8 -7.7) H 12/14/21 21:16 Lymph # (Auto) 4.5 10^3/uL (0.8- 4.8) 12/14/21 21:16 [place] # (Auto) 0.6 10^3/uL (0.2- 0.9) 12/14/21 21:16 Eos # (Auto) 0.4 10^3/uL (0.0- 0.8) 12/14/21 21:16 Baso # (Auto) 0.1 10^3/uL (0.0- 0.1) 12/14/21 21:16 Nucleated RBC % (a uto) 0 % 12/14/21 21:16 Nucleated RBCs # 0.0 /100WBC 12/14/21 21:16 D-Dimer 0.37 ug/mIFEU (0- 0.59) 12/14/21 21:16 Sodium 141 mmol/L (136-1 45) 12/14/21 21:16 Potassium 4.4 mmol/L (3.5-5 .1) 12/14/21 21:16 Chloride 104 mmol/L (98-10 7) 12/14/21 21:16 Carbon Dioxide 26 mmol/L (22-29) 12/14/21 21:16 Anion Gap 15.4 (5-19) 12/14/21 21:16 BUN 13 mg/dL (6-20) 12/14/21 21:16 Creatinine 0.7 mg/dL (0.5-0. 9) 12/14/21 21:16 GFR Calculation 93.6 mL/min (90-1 30) 12/14/21 21:16 Glucose 163 mg/dL (65-115 ) H 12/14/21 21:16 Calculated Osmolal ity 296 mOsm/kg (285- 295) H 12/14/21 21:16 Calcium 10.0 mg/dL (8.5-1 0.5) 12/14/21 21:16 Total Bilirubin 0.2 mg/dL (0.15-1 .2) 12/14/21 21:16 AST 15 U/L (0-32) 12/14/21 21:16 ALT 20 U/L (0-33) 12/14/21 21:16 Alkaline Phosphata se 97 IU/L (35-105) 12/14/21 21:16 Total Protein 8.0 g/dL (6.6-8.7 ) 12/14/21 21:16 Albumin 4.6 g/dL (3.5-5.2 ) 12/14/21 21:16 Globulin 3.4 g/dL (1.3-4.6 ) 12/14/21 21:16 TSH 1.21 uIU/mL (0.27 -4.20) 12/14/21 21:16 HCG, Qual Negative (Negati ve) 12/14/21 21: Urine Color Yellow (Yellow) 12/14/21 21:32 Urine Appearance Clear (CLEAR) 12/14/21 21:32 Urine pH 5 (5-7) 12/14/21 21:32 Ur Specific Gravit y 1.020 (1.005-1.0 30) 12/14/21 21:32 Urine Protein Neg (Negative) 12/14/21 21: Urine Glucose (UA) Norm (Normal) 12/14/21 21:32 Urine Ketones Negative (Negati ve) 12/14/21 21:32 Urine Blood Neg (Negative) 12/14/21 21:32 Urine Nitrate Negative (Negati ve) 12/14/21 21: Urine Bilirubin Neg (Negative) 12/14/21 21:32 Urine Urobilinogen Norm mg/dL (Negat kishan) 12/14/21 21:32 Ur Leukocyte Paulette ase Negative (Negati ve) 12/14/21 21:32 Salicylates 4.6 mg/dL (3-10) 12/14/21 21:16 Urine Opiates Scre en Negative ng/mL (N egative) 12/14/21 21:32 Acetaminophen < 5.0 ug/mL (10-3 0) L 12/14/21 21:16 Ur Barbiturates Sc reen Negative ng/mL (N egative) 12/14/21 21:32 Ur Phencyclidine S crn Negative ng/mL (N egative) 12/14/21 21:32 Ur Amphetamines Sc reen Positive ng/mL (N egative) H 12/14/21 21:32 U Benzodiazepines Scrn Negative ng/mL (N egative) 12/14/21 21:32 Urine Cocaine Scre en Negative ng/mL (N egative) 12/14/21 21:32 U Marijuana (THC) Screen Positive ng/mL (N egative) H 12/14/21 21:32 Ethyl Alcohol < 10 mg/dL (0-10) 12/14/21 21:16 SARS-CoV-2 Ag (Rap id) Negative (Negati ve) 12/14/21 21:07 Vitals: Last Vital Signs Temp 98.3 F 12/18/21 06:00 Pulse 83 12/18/21 06:00 Resp 18 12/18/21 06:00 BP 130/70 12/18/21 06:00 Pulse Ox 100 12/18/21 06:00 Discharge Plan Discharge Patient Disposition: Home Condition: Stable Prescriptions: New buspirone 10 mg Tablet 15 mg PO BID 30 Days Qty: 90 1RF olanzapine 5 mg Tablet,Disintegrating 5 mg PO DAILY PRN (Reason: Agitation/Psychosis) 30 Days Qty: 30 0RF hydroxyzine pamoate 25 mg Capsule 50 mg PO Q6H PRN (Reason: Anxiety) 30 Days Qty: 30 0RF escitalopram oxalate 10 mg Tablet 10 mg PO DAILY 30 Days Qty: 30 1RF aripiprazole 10 mg Tablet 10 mg PO 0800 30 Days Qty: 30 1RF Continued omeprazole 20 mg Capsule,Delayed Release(Dr/Ec) 20 mg PO DAILY 0RF hydroxyzine pamoate [Vistaril] 50 mg capsule 50 mg PO BID PRN (Reason: anxiety) Qty: 12 0RF naltrexone 50 mg tablet 50 mg PO DAILY 0RF hydroxyzine pamoate 50 mg capsule 50 mg PO QID PRN (Reason: Anxiety) 0RF ferrous sulfate 325 mg (65 mg iron) tablet 325 mg PO DAILY 0RF naproxen 500 mg tablet 500 mg PO BID 0RF polyethylene glycol 3350 17 gram/dose powder 17 g PO BID PRN (Reason: Constipation) 0RF quetiapine 100 mg tablet 100 mg PO BEDTIME Qty: 30 1RF Discontinued fluoxetine 20 mg capsule 20 mg PO DAILY Qty: 30 2RF buspirone 10 mg tablet 10 mg PO BID 0RF Discharge Orders: Discharge Order (Routine); Ordered 12/18/21 Ordered By: Yuan Antonio Referrals: [facility] [Other] - 12/26/21 Discharge Diet: Regular Discharge Activity: Resume usual activity Patient Instructions: Opioid Safety Discharge Attestations NPU Time Spent in Discharge Care*: less than 30 min Specific Discharge Activities: Specific discharge activities: educating patient, discussing with correctional counselor/case manager/social workers/dc planners, documenting/other paperwork and evaluating patient/reviewing data Coding Level of Care Code Acute [facility] FW DC note Diagnoses Borderline personality disorder F60.3 Major depressive disorder, recurrent severe without psychotic features F33.2 Amphetamine use disorder, severe F15.20 Cannabis use disorder, severe, dependence F12.20 Suicidal ideation R45.851 Alcohol use disorder, moderate, dependence F10.20
[2021-12-18 08:37] VITALS: BP 130/70; PULSE 83; RESP 18; TEMP 36.8; O2SAT 100
[2021-12-18] MEDS: pantoprazole DR 40 mg Tablet PO (09:20)
[2021-12-18] MEDS: naproxen 500 mg Tablet PO (09:20)
[2021-12-18] MEDS: escitalopram 10 mg Tablet PO (09:21)
[2021-12-18] MEDS: naltrexone hcl 50 mg Tablet PO (09:21)
[2021-12-18] MEDS: ferrous sulfate EC 325 mg Tablet PO (09:21)
[2021-12-18] MEDS: BuSPIRONE 10 mg Tablet 15 MG PO (09:21)
[2021-12-18] MEDS: nicotine 2 mg Gum BUCCAL (09:21)
[2021-12-18] MEDS: ARIPiprazole 10 mg Tablet PO (09:22)
== END 2021-12-18 10:23 | disposition home or self-care (01) | DRG 885 ==
LOC: ER 23:40 → NP 12-15 10:25
PROVIDERS: Admitting Provider Psychiatry & Neurology Psychiatry; Emergency Provider Nurse Practitioner Family; Visit Provider Psychiatry & Neurology Psychiatry
DX: F33.2 Major depressive disorder, recurrent severe without psychotic features (principal); R45.851 Suicidal ideations; F15.20 Other stimulant dependence, uncomplicated; F60.3 Borderline personality disorder; F17.210 Nicotine dependence, cigarettes, uncomplicated; F12.20 Cannabis dependence, uncomplicated; F10.20 Alcohol dependence, uncomplicated; Z59.01 Sheltered homelessness
CPT/HCPCS: 36415; 71045; 80053; 80306; 80307; 81003; 81025; 84443; 85025; 85378; 87426; 90471; 90686; 93005; 97165; 99285

== ENCOUNTER 2021-12-21 17:41 | Inpatient (IN) | payer MEDICAID, SELFPAY ==
[2021-12-21 17:48] VITALS: BP 132/80; PULSE 85; RESP 15; TEMP 36.9; O2SAT 97; BMI 30.7
--- NOTE | 2021-12-21 18:15 | W.ED.GENADLT ---
Documented by User: Erica Harding MD 12/21/21 19:09 HPI - General Adult General: Chief complaint: Psychiatric Symptoms Stated complaint: SUICIDAL W/ANXIETY Time Seen by Provider: 12/21/21 17:42 History of Present Illness: HPI: [36]yo patient w/ hx of depression and alcohol dependence BIBA for anxiety and suicidal ideation. Patient was recently idscharged on 12/18/2021 for suicidal ideation. Patient has been compliant on medicine and denies any active plan. On arrival, the patient is AAOx3 and cooperative with my evaluation. No focal complaints of chest pain, shortness of breath, palpitations, N/V, focal GI/ complaints. Currently denies HI. No complaints of hallucinations. Onset: acute Duration: ongoing Location: home Severity: severe Associated symptoms: Deny chest pain, dyspnea, nausea, rash, palpitations or vomiting Review of Systems Const: Denies: fever(s) or chills Eyes: Denies: change in vision ENMT: Denies: mouth pain Card: Denies: chest pain or palpitations Resp: Denies: dyspnea or non-productive cough GI: Denies: abdominal pain, nausea, vomiting or diarrhea : Denies: dysuria Musc: Denies: extremity pain Skin/Breast: Denies: rash or new lesions Neuro: Denies: weakness in extremities Psych: Reports: depression Finn/Lymph: Denies: easy bruising PFSH ED PFSH: Medical History (Updated 12/23/21 @ 06:29 by Kirby Kessler MD) Depression Social History Smoking and tobacco status: current every day smoker cigarettes Packs smoked per day: 0.5 Years cigarettes smoked: 22 Quit status (tobacco): has tried quititng Number of times tried to quit tobacco: 3 Second hand smoke exposure: Yes Smoking risk assessment/counseling performed?: Yes Tobacco counseling given: counseling >3 minutes Physical Exam Const: COMMON NORMALS: alert HENMT: COMMON NORMALS: atraumatic HEAD & SCALP: atraumatic MOUTH: moist mucous membranes not abnormal Eye: COMMON NORMALS: EOMs intact bilaterally and conjunctivae normal CONJUNCTIVA: Yes conjunctivae normal Neck/C-Spine: COMMON NORMALS: full ROM and supple Resp: COMMON NORMALS: normal respiratory effort and clear to auscultation bilaterally AUSCULTATION: clear to auscultation bilaterally Cardio: COMMON NORMALS: regular rate RATE: regular rate GI: COMMON NORMALS: Soft to palpation and non-tender PALPATION: Yes Soft to palpation Extremity: COMMON NORMALS: full ROM Neuro: SENSORIUM/ORIENTATION: Yes alert MOTOR EXAM: No Abnormal motor strength present and Other motor observations present (no focal motor deficits) Psych: COMMON NORMALS: speech normal SPEECH: Yes normal speech MOOD & AFFECT: Yes euthymic mood Course Vital Signs: Vital signs: Vital Signs Temperature 98.9 F 12/22/21 23:30 Pulse Rate 86 12/23/21 08:44 Respiratory Rate 16 12/23/21 08:44 Blood Pressure 119/66 12/23/21 08:44 Pulse Oximetry 99 12/23/21 08:44 MDM - General Adult Medical Decision Making [36]yo patient w/ hx of depression, borderline personality, alcohol dependence presenting for suicidal ideation. HDS, exam within normal limit Thoughts are linear and organized, and the patient has no AH/VH, or HI. Clinically the patient displays no overt toxidrome; they are well appearing, with low suspicion for toxic ingestion given history and exam. Symptoms unlikely 2/2 anemia, hypothyroidism, infection, or ICH. Workup: CBC, CMP, Lipase, salicylate/tylenol, UDS, bHCG Lab findings: wnl, +amphetamine [7:30pm] On reassessment, labs and workup wnl. Patient is hemodynamically stable with no acute medical complaints. Case discussed with psychiatric provider Dr. Antonio at [facility] psych inpatient with recommendation for xfer to outside facility since we do not have any more beds. Disposition: Xfer to outside psych facility Lab Data : 12/21/21 18:32 12/21/21 18:32 Laboratory Results WBC 13.1 10^3/uL (4.0-10.0) H 12/21/21 18:32 RBC 5.35 10^6/uL (4.1-5.3) H 12/21/21 18:32 Hgb 13.8 g/dL (11.5-15.3) 12/21/21 18:32 Hct 43.6 % (37.0-47.0) 12/21/21 18:32 MCV 81.5 fl (81-99) 12/21/21 18:32 MCH 25.8 pg (28.0-34.0) L 12/21/21: MCHC 31.7 g/dL (30.0-36.0) 12/21/21: RDW 14.8 % (12.1-15.1) 12/21/21: Plt Count 560 10^3/cmm (130-400) H 12/21/21: MPV 8.3 fL (7.4-10.4) 12/21/21: Neut % (Auto) 53.6 % 12/21/21: Lymph % (Auto) 35.9 % 12/21/21: [place] % (Auto) 6.4 % 12/21/21: Eos % (Auto) 2.7 % 12/21/21: Baso % (Auto) 0.9 % 12/21/21: Neut # (Auto) 7.03 10^3/uL (1.8-7.7) 12/21/21: Lymph # (Auto) 4.7 10^3/uL (0.8-4.8) 12/21/21: [place] # (Auto) 0.8 10^3/uL (0.2-0.9) 12/21/21: Eos # (Auto) 0.4 10^3/uL (0.0-0.8) 12/21/21: Baso # (Auto) 0.1 10^3/uL (0.0-0.1) 12/21/21 Nucleated RBC % (auto) 0 % 12/21/21: Nucleated RBCs # 0.0 /100WBC 12/21/21: Sodium 136 mmol/L (136-145) 12/21/21: Potassium 4.1 mmol/L (3.5-5.1) 12/21/21: Chloride 99 mmol/L (98-107) 12/21/21: Carbon Dioxide 27 mmol/L (22-29) 12/21/21: Anion Gap 14.1 (5-19) 12/21/21: BUN 21 mg/dL (6-20) H 02/18/22 18:32 Creatinine 0.7 mg/dL (0.5-0.9) 12/21/21 18:32 GFR Calculation 93.6 mL/min (90-130) 12/21/21 18:32 Glucose 93 mg/dL (65-115) 12/21/21 18:32 Calculated Osmolality 285 mOsm/kg (285-295) 12/21/21 18:32 Calcium 9.8 mg/dL (8.5-10.5) 12/21/21 18:32 Total Bilirubin 0.2 mg/dL (0.15-1.2) 12/21/21 18:32 AST 39 U/L (0-32) H 12/21/21 18:32 ALT 78 U/L (0-33) H 12/21/21 18:32 Alkaline Phosphatase 90 IU/L (35-105) 12/21/21 18:32 Total Protein 8.1 g/dL (6.6-8.7) 12/21/21 18:32 Albumin 4.7 g/dL (3.5-5.2) 12/21/21 18:32 Globulin 3.4 g/dL (1.3-4.6) 12/21/21 18: Lipase 29 U/L (13-60) 12/21/21 18: TSH 1.55 uIU/mL (0.27-4.20) 12/21/21 18:32 Free T4 1.39 ng/dL (0.82-1.77) 12/21/21 18:32 HCG, Qual Negative (Negative) 12/21/21 18:32 Urine Color Yellow (Yellow) 12/23/21 03:57 Urine Appearance Sl hazy (CLEAR) 12/23/21 03:57 Urine pH 5 (5-7) 12/23/21 03:57 Ur Specific [place] 1.025 (1.005-1.030) 12/23/21 03:57 Urine Protein Neg (Negative) 12/23/21 03:57 Urine Glucose (UA) Norm (Normal) 12/23/21 03:57 Urine Ketones Negative (Negative) 12/23/21 03:57 Urine Blood 3+ (Negative) H 12/23/21 03:57 Urine Nitrate Negative (Negative) 12/23/21 03:57 Urine Bilirubin Neg (Negative) 12/23/21 03:57 Urine Urobilinogen Norm mg/dL (Negative) 12/23/21 03:57 Ur Leukocyte Esterase Negative (Negative) 12/23/21 03:57 Urine RBC 5-10 /hpf (0-2) H 12/23/21 03:57 Urine WBC 0-4 /hpf (0-5) H 12/23/21 03:57 Ur Squamous Epith Cells 15-25 /hpf (0-5) H 12/23/21 03:57 Amorphous Sediment Not Reportable 12/23/21 03:57 Urine Bacteria 2+ /hpf (NONE) H 12/23/21 03:57 Salicylates < 0.3 mg/dL (3-10) L 12/21/21 18:32 Urine Opiates Screen Negative ng/mL (Negative) 12/21/21 18:00 Acetaminophen < 5.0 ug/mL (10-30) L 12/21/21 18:32 Ur Barbiturates Screen Negative ng/mL (Negative) 12/21/21 18:00 Ur Phencyclidine Scrn Negative ng/mL (Negative) 12/21/21 18:00 Ur Amphetamines Screen Positive ng/mL (Negative) H 12/21/21 18:00 U Benzodiazepines Scrn Negative ng/mL (Negative) 12/21/21 18:00 Urine Cocaine Screen Negative ng/mL (Negative) 12/21/21 18:00 U Marijuana (THC) Screen Negative ng/mL (Negative) 12/21/21 18:00 Ethyl Alcohol < 10 mg/dL (0-10) 12/23/21 04:10 SARS-CoV-2 Ag (Rapid) Negative (Negative) 12/21/21 19:20 Discharge Plan Discharge Patient Disposition: Admitted As Inpatient Clinical Impression: Suicide ideation, Major depressive disorder, recurrent severe without psychotic features, Acute anxiety Condition: Stable Discharge Diet: Advance as tolerated Discharge Activity: Increase activity as tolerated Coding Level of Care Code ED Table Tender for Triciag Fwd Exam Comprehensive Documented by User: Kirby Kessler MD 12/23/21 16:20 HPI - General Adult General: Chief complaint: Psychiatric Symptoms Stated complaint: SUICIDAL W/ANXIETY Time Seen by Provider: 12/21/21 17:42 [facility] ED PFSH: Medical History (Updated 12/23/21 @ 06:29 by Kirby Kessler MD) Depression Social History Smoking and tobacco status: current every day smoker cigarettes Packs smoked per day: 0.5 Years cigarettes smoked: 22 Quit status (tobacco): has tried quititng Number of times tried to quit tobacco: 3 Second hand smoke exposure: Yes Smoking risk assessment/counseling performed?: Yes Tobacco counseling given: counseling >3 minutes Course Vital Signs: Vital signs: Vital Signs Temperature 98.9 F 12/22/21 23:30 Pulse Rate 86 12/23/21 08:44 Respiratory Rate 16 12/23/21 08:44 Blood Pressure 119/66 12/23/21 08:44 Pulse Oximetry 99 12/23/21 08:44 MDM - General Adult Medical Decision Making [36]yo patient w/ hx of depression, borderline personality, alcohol dependence presenting for suicidal ideation. HDS, exam within normal limit Thoughts are linear and organized, and the patient has no AH/VH, or HI. Clinically the patient displays no overt toxidrome; they are well appearing, with low suspicion for toxic ingestion given history and exam. Symptoms unlikely 2/2 anemia, hypothyroidism, infection, or ICH. Workup: CBC, CMP, Lipase, salicylate/tylenol, UDS, bHCG Lab findings: wnl, +amphetamine [7:30pm] On reassessment, labs and workup wnl. Patient is hemodynamically stable with no acute medical complaints. Case discussed with psychiatric provider Dr. Antonio at [facility] psych inpatient with recommendation for xfer to outside facility since we do not have any more beds. Disposition: Xfer to outside psych facility 0600: assumed care from Dr. Pimentel at shift change. Awaiting placement in a bhu. 0740: Patient reexamined. Patient still depressed. She is alert and oriented x3. No longer anxious. HEENT normocephalic atraumatic, neck supple, lungs clear to auscultation bilaterally cardiovascular regular rhythm and rate without murmur. Extremities peripheral pulses normal. Abdomen soft nontender normoactive bowel sounds. Neuro cranial nerves II through XII intact no focal neurological deficits. Moves all extremities well. Psych, patient still depressed. No anxiety now. Awaiting placement in a behavioral health unit. 0850: D/w Dr. Antonio psychiatrist. He states there will likely be a psychiatric bed open at this facility later this morning. He will let me know if the bed does not become available. Patient is okay with staying in the hospital at bed becomes available. Lab Data : 12/21/21 18:32 12/21/21 18:32 Laboratory Results WBC 13.1 10^3/uL (4.0-10.0) H 12/21/21: RBC 5.35 10^6/uL (4.1-5.3) H 12/21/21 18: Hgb 13.8 g/dL (11.5-15.3) 12/21/21: Hct 43.6 % (37.0-47.0) 12/21/21: MCV 81.5 fl (81-99) 12/21/21: MCH 25.8 pg (28.0-34.0) L 12/21/21: MCHC 31.7 g/dL (30.0-36.0) 12/21/21: RDW 14.8 % (12.1-15.1) 12/21/21: Plt Count 560 10^3/cmm (130-400) H 12/21/21: MPV 8.3 fL (7.4-10.4) 12/21/21: Neut % (Auto) 53.6 % 12/21/21: Lymph % (Auto) 35.9 % 12/21/21: [place] % (Auto) 6.4 % 12/21/21: Eos % (Auto) 2.7 % 12/21/21: Baso % (Auto) 0.9 % 12/21/21: Neut # (Auto) 7.03 10^3/uL (1.8-7.7) 12/21/21: Lymph # (Auto) 4.7 10^3/uL (0.8-4.8) 12/21/21 18:32 [place] # (Auto) 0.8 10^3/uL (0.2-0.9) 12/21/21 18:32 Eos # (Auto) 0.4 10^3/uL (0.0-0.8) 12/21/21 18:32 Baso # (Auto) 0.1 10^3/uL (0.0-0.1) 12/21/21 18:32 Nucleated RBC % (auto) 0 % 12/21/21 18: Nucleated RBCs # 0.0 /100WBC 12/21/21 18:32 Sodium 136 mmol/L (136-145) 12/21/21 18: Potassium 4.1 mmol/L (3.5-5.1) 12/21/21 18:32 Chloride 99 mmol/L (98-107) 12/21/21 18: Carbon Dioxide 27 mmol/L (22-29) 12/21/21: Anion Gap 14.1 (5-19) 12/21/21 18:32 BUN 21 mg/dL (6-20) H 12/21/21 18:32 Creatinine 0.7 mg/dL (0.5-0.9) 12/21/21 18:32 GFR Calculation 93.6 mL/min (90-130) 12/21/21 18:32 Glucose 93 mg/dL (65-115) 12/21/21 18:32 Calculated Osmolality 285 mOsm/kg (285-295) 12/21/21: Calcium 9.8 mg/dL (8.5-10.5) 12/21/21 18:32 Total Bilirubin 0.2 mg/dL (0.15-1.2) 12/21/21 18:32 AST 39 U/L (0-32) H 12/21/21 18:32 ALT 78 U/L (0-33) H 12/21/21 18:32 Alkaline Phosphatase 90 IU/L (35-105) 12/21/21 18:32 Total Protein 8.1 g/dL (6.6-8.7) 12/21/21 18: Albumin 4.7 g/dL (3.5-5.2) 02/18/22 18:32 Globulin 3.4 g/dL (1.3-4.6) 12/21/21 18:32 Lipase 29 U/L (13-60) 12/21/21 18:32 TSH 1.55 uIU/mL (0.27-4.20) 12/21/21 18:32 Free T4 1.39 ng/dL (0.82-1.77) 12/21/21 18:32 HCG, Qual Negative (Negative) 12/21/21 18:32 Urine Color Yellow (Yellow) 12/23/21 03:57 Urine Appearance Sl hazy (CLEAR) 12/23/21 03:57 Urine pH 5 (5-7) 12/23/21 03:57 Ur Specific [place] 1.025 (1.005-1.030) 12/23/21 03:57 Urine Protein Neg (Negative) 12/23/21 03:57 Urine Glucose (UA) Norm (Normal) 12/23/21 03:57 Urine Ketones Negative (Negative) 12/23/21 03:57 Urine Blood 3+ (Negative) H 12/23/21 03:57 Urine Nitrate Negative (Negative) 12/23/21 03:57 Urine Bilirubin Neg (Negative) 12/23/21 03:57 Urine Urobilinogen Norm mg/dL (Negative) 12/23/21 03:57 Ur Leukocyte Esterase Negative (Negative) 12/23/21 03:57 Urine RBC 5-10 /hpf (0-2) H 12/23/21 03:57 Urine WBC 0-4 /hpf (0-5) H 12/23/21 03:57 Ur Squamous Epith Cells 15-25 /hpf (0-5) H 12/23/21 03:57 Amorphous Sediment Not Reportable 12/23/21 03:57 Urine Bacteria 2+ /hpf (NONE) H 12/23/21 03:57 Salicylates < 0.3 mg/dL (3-10) L 12/21/21 18:32 Urine Opiates Screen Negative ng/mL (Negative) 12/21/21 18:00 Acetaminophen < 5.0 ug/mL (10-30) L 12/21/21 18:32 Ur Barbiturates Screen Negative ng/mL (Negative) 12/21/21 18:00 Ur Phencyclidine Scrn Negative ng/mL (Negative) 12/21/21 18:00 Ur Amphetamines Screen Positive ng/mL (Negative) H 12/21/21 18:00 U Benzodiazepines Scrn Negative ng/mL (Negative) 12/21/21 18:00 Urine Cocaine Screen Negative ng/mL (Negative) 12/21/21 18:00 U Marijuana (THC) Screen Negative ng/mL (Negative) 12/21/21 18:00 Ethyl Alcohol < 10 mg/dL (0-10) 12/23/21 04:10 SARS-CoV-2 Ag (Rapid) Negative (Negative) 12/21/21 19:20 Discharge Plan Discharge Patient Disposition: Admitted As Inpatient Clinical Impression: Suicide ideation, Major depressive disorder, recurrent severe without psychotic features, Acute anxiety Condition: Stable Discharge Diet: Advance as tolerated Discharge Activity: Increase activity as tolerated Coding Level of Care Code ED Table Tender for Joseline Fwd Exam Comprehensive
[2021-12-21 18:45] LABS: Basophils # 0.1 10^3/uL (0.0-0.1); Basophils % 0.9 %; Eosinophils # 0.4 10^3/uL (0.0-0.8); Eosinophils % 2.7 %; Hematocrit 43.6 % (37.0-47.0); Hemoglobin 13.8 g/dL (11.5-15.3); Lymphocytes # 4.7 10^3/uL (0.8-4.8); Lymphocytes % 35.9 %; Mean Corpuscular HGB Conc 31.7 g/dL (30.0-36.0); Mean Corpuscular Hemoglobin 25.8 pg (28.0-34.0); Mean Corpuscular Volume 81.5 fl (81-99); Mean Platelet Volume 8.3 fL (7.4-10.4); Monocytes # 0.8 10^3/uL (0.2-0.9); Monocytes % 6.4 %; Neutrophils # 7.03 10^3/uL (1.8-7.7); Neutrophils % 53.6 %; Nucleated Red Blood Cells % 0 %; Platelet Count 560 10^3/cmm (130-400); Red Blood Count 5.35 10^6/uL (4.1-5.3); Red Cell Distribution Width 14.8 % (12.1-15.1); White Blood Count 13.1 10^3/uL (4.0-10.0)
[2021-12-21 18:48] LABS: Amphetamines Screen Urine Positive (Negative); Barbiturates Screen Urine Negative (Negative); Benzodiazepines Screen Urine Negative (Negative); Cocaine Screen Urine Negative (Negative); Opiate Screen Urine Negative (Negative); PCP Screen Urine Negative (Negative); THC Screen Urine Negative (Negative)
[2021-12-21 18:53] LABS: HCG, Serum Qual Negative (Negative)
[2021-12-21 18:55] LABS: Alanine Aminotransferase 78 U/L (0-33); Albumin Level 4.7 g/dL (3.5-5.2); Alkaline Phosphatase 90 IU/L (35-105); Anion Gap 14.1 (5-19); Aspartate Amino Transferase 39 U/L (0-32); Blood Urea Nitrogen 21 mg/dL (6-20); Calcium 9.8 mg/dL (8.5-10.5); Carbon Dioxide 27 mmol/L (22-29); Chloride 99 mmol/L (98-107); Globulin 3.4 g/dL (1.3-4.6); Glomerular Filtration Rate 93.6 mL/min (90-130); Glucose 93 mg/dL (65-115); Lipase 29 U/L (13-60); Osmolality Calculated 285 mOsm/kg (285-295); Potassium 4.1 mmol/L (3.5-5.1); Sodium 136 mmol/L (136-145); Total Bilirubin 0.2 mg/dL (0.15-1.2); Total Protein 8.1 g/dL (6.6-8.7)
[2021-12-21 18:56] LABS: Acetaminophen < 5.0 ug/mL (10-30); Salicylate < 0.3 mg/dL (3-10)
--- NOTE | 2021-12-21 19:09 | ECG_ITS ---
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 Measurements Intervals [place] Rate: 83 P: 48 [place]: 144 QRS: 15 QRSD: 97 T: 45 QT: 390 QTc: 460 Interpretive Statements SINUS RHYTHM Compared to ECG 12/14/2021 21:13:49 No significant changes Electronically Signed On 12-24-2021 12:20:13 CARDIAC SONOGRAPHER by Ho Keita M.D. [id number]
[2021-12-21 20:07] LABS: SARS Covid-2 Antigen Negative (Negative)
--- NOTE | 2021-12-21 20:15 | PC.NURSE ---
Received report from JACQUELINE Smith assume care of patient.
[2021-12-21] MEDS: LORazepam 1 mg Tablet PO (22:27)
[2021-12-21 22:28] VITALS: BP 103/86; PULSE 95; RESP 18; O2SAT 98
[2021-12-21 22:37] LABS: Free T4 Free Thyroxine 1.39 ng/dL (0.82-1.77); Thyroid Stimulating Hormone 1.55 uIU/mL (0.27-4.20)
[2021-12-21] MEDS: LORazepam 2 mg/mL INJ 1 mL IM (23:53)
[2021-12-21] MEDS: metoclopramide 5 mg/mL SDV 2 mL 10 MG IM (23:54)
[2021-12-21] MEDS: diphenhydrAMINE 50 mg/mL SDV 1mL IM (23:55)
[2021-12-22 01:53] VITALS: BP 121/75; PULSE 78; RESP 16; O2SAT 100
[2021-12-22 04:00] VITALS: BP 130/78; PULSE 68; RESP 15; O2SAT 98
--- NOTE | 2021-12-22 15:55 | PC.NURSE ---
[place] does not have any rooms. Told us there are 20-30 request ahead of this pt.
[2021-12-22] MEDS: LORazepam 2 mg Tablet PO (18:09)
[2021-12-22 18:12] VITALS: BP 120/71; PULSE 88; RESP 195; O2SAT 95
--- NOTE | 2021-12-22 19:46 | PC.NURSE ---
received report from JACQUELINE Dubose. patient resting in bed with eyes closed. even non labored respirations. awakens easily. VSS. cares met.
[2021-12-22 23:30] VITALS: BP 127/84; PULSE 80; RESP 16; TEMP 37.2; O2SAT 96
[2021-12-23] VITALS (8 sets, daily range): BP systolic 108–140; BP diastolic 66–95; PULSE 76–99; RESP 15–18; TEMP 36.9–37.2; O2SAT 97–99
[2021-12-23] MEDS: LORazepam 2 mg Tablet PO (04:07)
[2021-12-23 04:43] LABS: Add Urine Microscopic? YES; Bilirubin Urine Neg (Negative); Blood Urine 3+ (Negative); Glucose Urine UA Norm (Normal); Ketones Urine Negative (Negative); Leukocyte Esterase Urine Negative (Negative); Nitrate Urine Negative (Negative); Protein Urine Neg (Negative); Specific Gravity, Urine 1.025 (1.005-1.030); Urine Appearance SL Hazy (CLEAR); Urine Color Yellow (Yellow); Urobilinogen Urine Norm (Negative); pH Urine 5 (5-7)
[2021-12-23 04:44] LABS: Add Urine Culture? No; Bacteria Urine 2+ /hpf; Squamous Epithelial Cell Urine 15-25 /hpf (0-5); WBC Urine 0-4 /hpf (0-5)
[2021-12-23 04:47] LABS: Alcohol Level < 10 mg/dL (0-10)
--- NOTE | 2021-12-23 07:38 | PC.NURSE ---
WHILE AT BEDSIDE PT IS RESTING QUIETLY IN BED ON RIGHT SIDE. PT HAS GOOD CHEST RISE AND FALL.
[2021-12-23] MEDS: LORazepam 1 mg Tablet PO (08:42)
[2021-12-23] MEDS: ARIPiprazole 10 mg Tablet PO (09:35)
--- NOTE | 2021-12-23 12:04 | PC.NURSE ---
WHILE AT DOORWAY PT IS RESTING QUIETLY WITH EYES CLOSED ON RIGHT SIDE IN NAD. PT HAS GOOD CHEST RISE AND FALL. BRIDGE RIGGER REPORTED THAT PT ATE MEAL AND WENT BACK TO BED AND DID NOT VERBALIZE ANY REQUESTS.
--- NOTE | 2021-12-23 13:13 | PC.NURSE ---
report given to Raúl jacob assumed care.
--- NOTE | 2021-12-23 16:11 | PC.NURSE ---
patient given crackers and cola for nourishment. patient in no obviosu distress. Patient resting comfrotably in bed at this time. safety checks done and sitter at bedside.
[2021-12-23] MEDS: hyDROXYzine 25 mg Capsule 50 MG PO (18:41)
[2021-12-23] MEDS: cephALEXin 500 mg Capsule PO (22:00)
[2021-12-23] MEDS: quetiapine 100 mg Tablet PO (22:04)
[2021-12-24 06:00] VITALS: BP 110/73; PULSE 81; RESP 15; TEMP 36.7; O2SAT 97
[2021-12-24] MEDS: cephALEXin 500 mg Capsule PO ×4 (08:28→20:09)
[2021-12-24] MEDS: escitalopram 10 mg Tablet PO (08:28)
[2021-12-24] MEDS: BuSPIRONE 10 mg Tablet 15 MG PO ×2 (08:28→17:55)
[2021-12-24] MEDS: ARIPiprazole 10 mg Tablet PO (08:28)
[2021-12-24] MEDS: naltrexone hcl 50 mg Tablet PO (08:28)
[2021-12-24] MEDS: ferrous sulfate EC 325 mg Tablet PO (08:28)
[2021-12-24] MEDS: pantoprazole DR 40 mg Tablet PO (08:29)
--- NOTE | 2021-12-24 10:21 | P.NPUHP_ITS ---
Providers/Chief Complaint Admitting Physician: Yuan Antonio MD Chief Complaint: SUICIDAL W/ANXIETY HPI NPU History of Present Illness Faraz Rai is a 36 year old female admitted through the emergency d [facility] with the following report: HPI: [36]yo patient w/ hx of depression and alcohol dependence BIBA for anxiety and suicidal ideation. Patient was recently idscharged on 12/18/2021 for suicidal ideation. Patient has been compliant on medicine and denies any active plan. On arrival, the patient is AAOx3 and cooperative with my evaluation. No focal complaints of chest pain, shortness of breath, palpitations, N/V, focal GI/ complaints. Currently denies HI. No complaints of hallucinations. She had plans to go back and live with he and his father when she was dischar ged. However quantities father said that she could not be there because she does not contribute to the household. She then went to his mother's house and she said things did not go well there. She then called the ambulance and came back to our emergency room. She also says that she could not get her medication when she left the hospital last time. He says that she feels like her medications are good and she will do better when she gets back on them. She says that she continues to have suicidal ideations. She was positive for methamphetamine but says it is a false positive Prozac and Wellbutrin. However she does think that she should go to rehabilitation and will talk to high school social studies teacher about that. Below is her history from the last visit. Brief History: 36-year-old female comes in today with complaints of dyspnea and suicidal ideation.? Patient reported that she just wants to get back home to [facility].? Patient reports that she does feel suicidal but believes he will be better when she got back home.? Patient had made her way to [place] to visit with somebody since then has had increasing shortness of breath.? Patient is concerned that she may have Covid.? Patient appears anxious.? Patient appears well.? Patient appears in no pain.? Patient does have a history of substance abuse disorder, borderline personality disorder, nicotine dependence.? Patient reports no recent alcohol use, cannabis use, or other drug use.? Patient recently gave to a infant boy 7 months ago.? Patient does take routine medications for psychiatric disorder. complaint: suicidal ideation Onset (ago): day(s) Duration: intermittent History of same: Yes Relieving factors: none Exacerbating factors: drug use Context: significant life stressor (Away from home) Associated psychiatric symptoms: suicidal ideation and racing thoughts Associated symptoms: Reports depression and suicidal ideation Treatments prior to arrival: none If self harm: admits thoughts of self harm She was admitted to the neuropsychiatry unit for definitive treatment of these issues.? She was seen by Dr. Blanchard and [facility] several times in 2019.? His initial evaluation is documented below.? Medications prescribed as of October 2020 Geodon 60 mg twice a day, Prozac 20 mg daily, Vistaril 10 mg 3 times daily, trazodone 200 mg at bedtime.? It is unclear exactly how long she took those medications.? She says that she saw a provider in [facility] where she currently lives about 7 months ago.? She says that she has seen that person monthly since then.? She is currently on Prozac 20 mg,Vistaril 50 mg 4 times a day as needed, BuSpar 10 mg twice a day and Seroquel 100 mg at bedtime.? She says that she has been doing okay.? She was missing her family and friends and came back to [place] to see them.? She was thinking about moving back but then had a nervous breakdown and has been thinking about suicide for the last few days.? She is not sure why she is worse lately.? She has decided that she is not going to move back to [place].? She said that she stopped taking the Geodon and does not want to take that again because it made her sleepy.? She is not really sure what that was for.? She says that she gets depressed and thinks about hurting herself about twice a year.? She does not think that the Prozac is doing much for her.? She thought about trying the trazodone again but decided that she wants to stay with the Seroquel 100 mg daily.? She says it does not cause increased appetite or weight gain.? She tried some Zyprexa Zydis yesterday and felt it was helpful.? She asked if she could try that.? She was told that we were concerned about weight gain with Zyprexa.? She agreed to try some Abilify.? She wants to continue taking the Vistaril 50 mg as needed.? She wanted to change Prozac to Lexapro.? She does not really want to talk much at this time.? She did not get out of bed or sit up to talk to me.? She had a lot of trauma as a child and was in foster homes much of her childhood.? That is described in Dr. Blanchard's evaluation below.? Urine drug screen was positive for methamphetamine and marijuana. Meds NPU Home Medications Medication Instructions Recorded Confirmed Last Taken Type omeprazole 20 mg capsule,delayed 20 mg PO DAILY 02/14/21 12/22/21 02/14/21 History release ferrous sulfate 325 mg (65 mg 325 mg PO DAILY 12/15/21 12/22/21 Unknown History iron) tablet hydroxyzine pamoate 50 mg capsule 50 mg PO QID PRN 12/15/21 12/22/21 Unknown History polyethylene glycol 3350 17 17 g PO BID PRN 12/15/21 12/22/21 Unknown History gram/dose oral powder aripiprazole 10 mg tablet 10 mg PO 0800 30 Days #30 tab 12/18/21 12/22/21 Unknown Rx buspirone 10 mg tablet 15 mg PO BID 30 Days #90 tab 12/18/21 12/22/21 Unknown Rx escitalopram oxalate 10 mg tablet 10 mg PO DAILY 30 Days #30 tab 12/18/21 12/22/21 Unknown Rx olanzapine 5 mg disintegrating 5 mg PO DAILY PRN 30 Days #30 tab 12/18/21 12/22/21 Unknown Rx tablet quetiapine 100 mg tablet 100 mg PO BEDTIME #30 tab 12/18/21 12/22/21 Unknown Rx naltrexone 50 mg tablet 50 mg PO DAILY 12/23/21 12/23/21 Unknown History quetiapine 100 mg tablet 100 mg PO BEDTIME 12/23/21 12/23/21 Unknown History Allergies Allergy/AdvReac Type Severity Reaction Status Date / Time No Known Allergies Allergy Verified 12/22/21 08:25 PFS NPU PFSH: Medical History (Updated 12/23/21 @ 06:29 by Kirby Kessler MD) Depression Social History Smoking and tobacco status: current every day smoker cigarettes Packs smoked per day: 0.5 Years cigarettes smoked: 22 Quit status (tobacco): has tried quititng Number of times tried to quit tobacco: 3 Second hand smoke exposure: Yes Smoking risk assessment/counseling performed?: Yes Tobacco counseling given: counseling >3 minutes Mental Status Exam MSE Comments: This is an overweight 36-year-old female who appears approximately her stated age and is in no acute distress. She was moderately cooperative with the evaluation. She had very poor eye contact. She is initially in bed and then got up and started looking for her socks. They called for snacks and she went out the door and said are we done? psychomotor activity mildly decreased. Speech is at a regular rate and rhythm, normal volume, good articulation, not pressured. Alert, oriented X3 Attention and concentration appears average. Memory is intact Mood is depressed. Affect is mildly dysphoric. Thought process is logical and goal-directed. Thought content: Denies auditory and visual hallucinations. No delusions or paranoia are noted. Reports continued suicidal ideation, and no homicidal ideation. Fund of knowledge is average. Insight and judgment appear to be poor. Impulse control is poor. Vitals/I&O/Wt Last Vital Signs Temp 98.1 F 12/24/21 06:00 Pulse 81 12/24/21 06:00 Resp 15 12/24/21 06:00 BP 110/73 12/24/21 06:00 Pulse Ox 97 12/24/21 06:00 Data NPU : 12/21/21 18:32 12/21/21 18:32 A&P Assessment and plan (1) Acute anxiety: Status: Acute (2) Depression: Status: Acute (3) Suicide ideation: Status: Acute (4) Borderline personality disorder: Status: Acute (5) Amphetamine use disorder, severe: Status: Acute (6) Major depressive disorder, recurrent severe without psychotic features: Status: Acute (7) Alcohol use disorder, moderate, dependence: Status: Acute (8) Cannabis use disorder, severe, dependence: Status: Acute Plan This is a 36-year-old female who has been previously diagnosed with borderline personality disorder from a lot of trauma as a child who reports episodic suicidal ideation and very soon after release from hospital because she could not find a place to live. Plan: 1.? Continue previous medications. 2.? Continue every 15 minute checks for safety. 3.? Encourage individual, group and milieu therapies. 4.? Encourage sober living treatment after discharge at the highest level of care to which she is willing to commit. 5.? We will monitor for safety for herself in the community prior to discharge. Involuntary Hold Information 96 Hour Hold: 96 Hour Involuntary Admission: No Attestations NPU Medical Necessity Statement*: Inpatient hospitalization is medically necessary and the clinically appropriate intervention at this time. We will initiate medications and make changes as indicated. She will be in the hospital for over 2 midnights. Likely length of stay 4-6 days Coding Level of Care Code Acute Medical Assembly for g Fwd Diagnoses Acute anxiety F41.9 Depression F32.A Suicide ideation R45.851 Borderline personality disorder F60.3 Amphetamine use disorder, severe F15.20 Major depressive disorder, recurrent severe without psychotic features F33.2 Alcohol use disorder, moderate, dependence F10.20 Cannabis use disorder, severe, dependence F12.20
[2021-12-24 14:00] VITALS: BP 138/72; PULSE 80; RESP 18; TEMP 36.8; O2SAT 97
[2021-12-24] MEDS: hyDROXYzine 25 mg Capsule 50 MG PO (14:52)
[2021-12-24] MEDS: OLANZapine 5 mg ODT PO (16:19)
[2021-12-24 19:39] VITALS: BP 120/80; PULSE 78; RESP 16; TEMP 36.9; O2SAT 97
[2021-12-24] MEDS: quetiapine 100 mg Tablet PO (20:09)
[2021-12-24] MEDS: nicotine 2 mg Gum BUCCAL (20:16)
[2021-12-25 06:00] VITALS: BP 106/69; PULSE 71; RESP 20; TEMP 36.9; O2SAT 97
[2021-12-25] MEDS: OLANZapine 5 mg ODT PO (08:30)
[2021-12-25] MEDS: BuSPIRONE 10 mg Tablet 15 MG PO ×2 (08:30→18:05)
[2021-12-25] MEDS: escitalopram 10 mg Tablet PO (08:30)
[2021-12-25] MEDS: pantoprazole DR 40 mg Tablet PO (08:30)
[2021-12-25] MEDS: naltrexone hcl 50 mg Tablet PO (08:31)
[2021-12-25] MEDS: ARIPiprazole 10 mg Tablet PO (08:31)
[2021-12-25] MEDS: ferrous sulfate EC 325 mg Tablet PO (08:31)
[2021-12-25] MEDS: cephALEXin 500 mg Capsule PO ×4 (08:32→20:09)
--- NOTE | 2021-12-25 10:44 | W.PM.NPUPNS ---
Subjective NPU Subjective: Interval history: She says that she is doing much better. She talked to a friend who will let her come to live with him until she finds a place to stay. She says that she is no longer suicidal. She did not want to talk about anything else. She was upset when I told her that we cannot let her go without watching her longer and making sure that we felt that she was okay. Mental Status Exam MSE Comments: This is an overweight 36-year-old female who appears approximately her stated age and is in no acute distress. She was moderately cooperative with the evaluation. She had good eye contact. Speech is at a regular rate and rhythm, normal volume, good articulation, not pressured. Alert, oriented X3 Attention and concentration appears average. Memory is intact Mood is described as good. Affect is mildly dysphoric. Thought process is logical and goal-directed. Thought content: Denies auditory and visual hallucinations. No delusions or paranoia are noted. Reports continued suicidal ideation, and no homicidal ideation. Fund of knowledge is average. Insight and judgment appear to be poor. Impulse control is poor. Cognition: Patient Appearance: Appropriate Level of Consciousness: Awake, Alert and Follows Commands Patient Cognition Impaired: No Ability to Follow Directions: Fair Patient Orientation (long list): Person, Place, Time, Name, Age, Birthday and Year Comprehension Ability: Understands Concepts Hallucination Type: None Delusion Description: Not Present Thought Process: Appropriate Affect: Affect Description: Appropriate Behavior: Patient Behavior: Appropriate, Cooperative and Withdrawn Speech Pattern: Clear Vitals/I&O/Wt Last Vital Signs Temp 98.5 F 12/25/21 06:00 Pulse 71 12/25/21 06:00 Resp 20 H 12/25/21 06:00 BP 106/69 12/25/21 06:00 Pulse Ox 97 12/25/21 06:00 Data NPU : 12/21/21 18:32 12/21/21 18:32 A&P Assessment and plan (1) Acute anxiety: Status: Acute (2) Depression: Status: Acute (3) Suicide ideation: Status: Acute (4) Borderline personality disorder: Status: Acute (5) Amphetamine use disorder, severe: Status: Acute (6) Major depressive disorder, recurrent severe without psychotic features: Status: Acute (7) Alcohol use disorder, moderate, dependence: Status: Acute (8) Cannabis use disorder, severe, dependence: Status: Acute Plan This is a 36-year-old female who has been previously diagnosed with borderline personality disorder from a lot of trauma as a child who reports episodic suicidal ideation and very soon after release from hospital because she could not find a place to live. Plan: 1.? Continue previous medications. 2.? Continue every 15 minute checks for safety. 3.? Encourage individual, group and milieu therapies. 4.? Encourage sober living treatment after discharge at the highest level of care to which she is willing to commit. 5.? We will monitor for safety for herself in the community prior to discharge. Involuntary Hold Information 96 Hour Hold: 96 Hour Involuntary Admission: No Attestations NPU Medical Necessity Statement*: Past inpatient hospitalization is medically necessary and the clinically appropriate intervention at this time. We will initiate medications and make changes as indicated. Coding Level of Care Code Acute Cosmetic Account Coordinator for Joseline Cisneros Diagnoses Acute anxiety F41.9 Depression F32.A Suicide ideation R45.851 Borderline personality disorder F60.3 Amphetamine use disorder, severe F15.20 Major depressive disorder, recurrent severe without psychotic features F33.2 Alcohol use disorder, moderate, dependence F10.20 Cannabis use disorder, severe, dependence F12.20
[2021-12-25] MEDS: nicotine 2 mg Gum BUCCAL ×2 (10:49→18:59)
[2021-12-25] MEDS: acetaminophen 325 mg Tablet 650 MG PO ×2 (10:49→18:57)
[2021-12-25] MEDS: hyDROXYzine 25 mg Capsule 50 MG PO ×2 (10:50→18:57)
[2021-12-25 13:22] VITALS: BP 116/76; PULSE 94; RESP 17; TEMP 36.9; O2SAT 98
[2021-12-25] MEDS: quetiapine 100 mg Tablet PO (20:09)
[2021-12-25 20:34] VITALS: BP 119/90; PULSE 88; RESP 20; TEMP 36.3; O2SAT 98
[2021-12-25] MEDS: trazodone 50 mg Tablet PO (20:43)
[2021-12-26 05:45] VITALS: BP 108/69; PULSE 58; RESP 17; TEMP 36.6; O2SAT 98
[2021-12-26] MEDS: BuSPIRONE 10 mg Tablet 15 MG PO ×2 (08:13→17:28)
[2021-12-26] MEDS: ARIPiprazole 10 mg Tablet PO (08:13)
[2021-12-26] MEDS: cephALEXin 500 mg Capsule PO ×4 (08:14→20:15)
[2021-12-26] MEDS: escitalopram 10 mg Tablet PO (08:15)
[2021-12-26] MEDS: ferrous sulfate EC 325 mg Tablet PO (08:15)
[2021-12-26] MEDS: naltrexone hcl 50 mg Tablet PO (08:15)
[2021-12-26] MEDS: pantoprazole DR 40 mg Tablet PO (08:18)
[2021-12-26] MEDS: acetaminophen 325 mg Tablet 650 MG PO (10:13)
[2021-12-26] MEDS: hyDROXYzine 25 mg Capsule 50 MG PO ×3 (10:13→19:19)
[2021-12-26] MEDS: nicotine 2 mg Gum BUCCAL ×2 (10:39→17:03)
[2021-12-26] MEDS: OLANZapine 5 mg ODT PO (12:02)
--- NOTE | 2021-12-26 12:16 | P.NPUPN_ITS ---
Subjective NPU Subjective: Interval history: She says that she is doing well. She talked just as a store was about to start. There will be very bad driving conditions for the next 24 to 36 hours. She says that her friend will come and get her and she can live with him. She was told that we need to talk with this person before feeding plan. Mental Status Exam MSE Comments: This is an overweight 36-year-old female who appears approximately her stated age and is in no acute distress. She was moderately cooperative with the evaluation. She had good eye contact. Speech is at a regular rate and rhythm, normal volume, good articulation, not pressured. Alert, oriented X3 Attention and concentration appears average. Memory is intact Mood is described as good. Affect is mildly dysphoric. Thought process is logical and goal-directed. Thought content: Denies auditory and visual hallucinations. No delusions or paranoia are noted. Reports continued suicidal ideation, and no homicidal ideation. Fund of knowledge is average. Insight and judgment appear to be poor. Impulse control is poor. Cognition: Patient Appearance: Appropriate Level of Consciousness: Awake, Alert and Follows Commands Patient Cognition Impaired: No Ability to Follow Directions: Fair Patient Orientation (long list): Person, Place, Time, Name, Age, Birthday and Year Comprehension Ability: Understands Concepts Hallucination Type: None Delusion Description: Not Present Thought Process: Appropriate Affect: Affect Description: Appropriate and Calm Behavior: Patient Behavior: Appropriate and Cooperative Speech Pattern: Appropriate and Clear Vitals/I&O/Wt Last Vital Signs Temp 98 F 12/26/21 05:45 Pulse 58 L 12/26/21 05:45 Resp 17 12/26/21 05:45 BP 108/69 12/26/21 05:45 Pulse Ox 98 12/26/21 05:45 Data NPU : 12/21/21 18:32 12/21/21 18:32 A&P Assessment and plan (1) Acute anxiety: Status: Acute (2) Depression: Status: Acute (3) Suicide ideation: Status: Acute (4) Borderline personality disorder: Status: Acute (5) Amphetamine use disorder, severe: Status: Acute (6) Major depressive disorder, recurrent severe without psychotic features: Status: Acute (7) Alcohol use disorder, moderate, dependence: Status: Acute (8) Cannabis use disorder, severe, dependence: Status: Acute Plan This is a 36-year-old female who has been previously diagnosed with borderline personality disorder from a lot of trauma as a child who reports episodic suicidal ideation and very soon after release from hospital because she could not find a place to live. Plan: 1.? Continue previous medications. 2.? Continue every 15 minute checks for safety. 3.? Encourage individual, group and milieu therapies. 4.? Encourage sober living treatment after discharge at the highest level of care to which she is willing to commit. 5.? We will monitor for safety for herself in the community prior to discharge. Involuntary Hold Information 96 Hour Hold: 96 Hour Involuntary Admission: No Attestations NPU Medical Necessity Statement*: Inpatient hospitalization is medically necessary and the clinically appropriate intervention at this time. We will initiate medications and make changes as indicated. Coding Level of Care Code Acute Intermediate Frame Tender for Joseline Fwd Diagnoses Acute anxiety F41.9 Depression F32.A Suicide ideation R45.851 Borderline personality disorder F60.3 Amphetamine use disorder, severe F15.20 Major depressive disorder, recurrent severe without psychotic features F33.2 Alcohol use disorder, moderate, dependence F10.20 Cannabis use disorder, severe, dependence F12.20
[2021-12-26 13:45] VITALS: BP 126/76; PULSE 72; RESP 17; TEMP 36.7; O2SAT 100
[2021-12-26] MEDS: trazodone 50 mg Tablet PO (20:15)
[2021-12-26] MEDS: quetiapine 100 mg Tablet PO (20:15)
[2021-12-26 20:30] VITALS: BP 122/83; PULSE 70; RESP 17; TEMP 36.5; O2SAT 97
--- NOTE | 2021-12-26 21:04 | PC.NURSE ---
She requested something to help her sleep. She had Trazadone at 2015
[2021-12-27 06:00] VITALS: BP 92/62; PULSE 74; RESP 16; TEMP 36.5; O2SAT 98
[2021-12-27] MEDS: pantoprazole DR 40 mg Tablet PO (09:21)
[2021-12-27] MEDS: nicotine 2 mg Gum BUCCAL (09:21)
[2021-12-27] MEDS: ferrous sulfate EC 325 mg Tablet PO (09:21)
[2021-12-27] MEDS: escitalopram 10 mg Tablet PO (09:21)
[2021-12-27] MEDS: ARIPiprazole 10 mg Tablet PO (09:21)
[2021-12-27] MEDS: cephALEXin 500 mg Capsule PO ×4 (09:21→20:35)
[2021-12-27] MEDS: BuSPIRONE 10 mg Tablet 15 MG PO ×2 (09:21→17:14)
[2021-12-27] MEDS: naltrexone hcl 50 mg Tablet PO (09:21)
[2021-12-27] MEDS: ibuprofen 800 mg tablet PO ×2 (10:52→21:48)
[2021-12-27] MEDS: OLANZapine 5 mg ODT PO ×3 (10:52→20:31)
[2021-12-27] MEDS: nicotine 4 mg lozenge MUCOUS MEM ×4 (10:52→21:48)
[2021-12-27 13:00] VITALS: BP 117/79; PULSE 79; RESP 18; TEMP 36.7; O2SAT 99
[2021-12-27] MEDS: hyDROXYzine 25 mg Capsule 50 MG PO ×3 (13:28→21:48)
[2021-12-27 14:00] VITALS: BP 117/79; PULSE 79; RESP 18; TEMP 36.7; O2SAT 99
[2021-12-27] MEDS: acetaminophen 325 mg Tablet 650 MG PO (16:08)
--- NOTE | 2021-12-27 16:41 | W.PM.NPUPNS ---
Subjective NPU Subjective: Interval history: Patient is in today reporting that she feels very successful in clinic the hospital. She reports that the medications have been helpful. She reported she has been having some residual symptoms from her UTI but otherwise reports that she is doing okay. She was endorsing feeling hopeful that she will be discharged tomorrow feeling that overall she Compass her goals and was excited about getting back to her life. She was fairly focused on getting some kind of narcotic for pain. Mental Status Exam MSE Comments: This is an overweight versus obese middle-aged female with adequate grooming and eye contact. In hospital scrubs cooperative exam in no acute distress. Speech was normal rate and volume. Mood described as better, affect euthymic. Thought process organized. Thought content: Patient denied suicidal or homicidal ideation, there were no delusions reported noted, she denied any auditory or visual hallucinations. Attention and concentration appeared intact and memory appeared mostly reliable but none were formally tested. She was alert oriented x3. Insight and judgment. Limited, but improving. Impulse control appeared limited. Vitals/I&O/Wt Last Vital Signs Temp 97.4 F L 12/27/21 21:30 Pulse 74 12/27/21 21:30 Resp 20 H 12/27/21 21:30 BP 133/90 12/27/21 21:30 Pulse Ox 99 12/27/21 21:30 Data NPU : 12/21/21 18:32 12/21/21 18:32 A&P Assessment and plan (1) Borderline personality disorder: Status: Acute (2) Amphetamine use disorder, severe: Status: Acute (3) Suicide ideation: Status: Acute (4) Acute anxiety: Status: Acute (5) Major depressive disorder, recurrent severe without psychotic features: Status: Acute (6) Alcohol use disorder, moderate, dependence: Status: Acute (7) Cannabis use disorder, severe, dependence: Status: Acute Plan This is a 36-year-old female who has been previously diagnosed with borderline personality disorder from a lot of trauma as a child who reports episodic suicidal ideation and very soon after release from hospital because she could not find a place to live. Plan: 1.? Continue previous medications. 2.? Continue every 15 minute checks for safety. 3.? Encourage individual, group and milieu therapies. 4.? Encourage sober living treatment after discharge at the highest level of care to which she is willing to commit. Involuntary Hold Information 96 Hour Hold: 96 Hour Involuntary Admission: No Attestations NPU Medical Necessity Statement*: Inpatient hospitalization is medically necessary and the clinically appropriate intervention at this time.? We will initiate medications and make changes as indicated. Likely discharge in the morning. Coding Level of Care Code Acute Food And Beverage Associate for g Fwd Diagnoses Borderline personality disorder F60.3 Amphetamine use disorder, severe F15.20 Suicide ideation R45.851 Acute anxiety F41.9 Major depressive disorder, recurrent severe without psychotic features F33.2 Alcohol use disorder, moderate, dependence F10.20 Cannabis use disorder, severe, dependence F12.20
[2021-12-27] MEDS: blistex lip oint 7 gm Tube 1 APPLIC TOPICAL (18:55)
[2021-12-27] MEDS: miconazole 2% topical cream 28 gm 1 APPLIC TOPICAL (18:57)
[2021-12-27] MEDS: trazodone 50 mg Tablet PO (20:31)
[2021-12-27] MEDS: quetiapine 100 mg Tablet PO (20:31)
[2021-12-27 21:30] VITALS: BP 133/90; PULSE 74; RESP 20; TEMP 36.3; O2SAT 99
[2021-12-28] MEDS: OLANZapine 5 mg ODT PO (00:36)
--- NOTE | 2021-12-28 00:38 | PC.NURSE ---
2030-C/O insomnia and agitation. trazodone and zyprexa zydis given po 2140-No effective. 2147- Vistaril for anxiety and IBU for pain given po. 2247-IBu helped some. anxiety is still high. she is wanting to discharge tomorrow.
[2021-12-28] MEDS: acetaminophen 325 mg Tablet 650 MG PO ×2 (01:14→09:56)
[2021-12-28 06:00] VITALS: BP 126/79; PULSE 79; RESP 16; TEMP 36.4; O2SAT 93
[2021-12-28] MEDS: pantoprazole DR 40 mg Tablet PO (09:28)
[2021-12-28] MEDS: ARIPiprazole 10 mg Tablet PO (09:28)
[2021-12-28] MEDS: nicotine 4 mg lozenge MUCOUS MEM ×2 (09:28→12:34)
[2021-12-28] MEDS: escitalopram 10 mg Tablet PO (09:28)
[2021-12-28] MEDS: cephALEXin 500 mg Capsule PO ×3 (09:28→14:55)
[2021-12-28] MEDS: naltrexone hcl 50 mg Tablet PO (09:28)
[2021-12-28] MEDS: BuSPIRONE 10 mg Tablet 15 MG PO (09:28)
[2021-12-28] MEDS: ferrous sulfate EC 325 mg Tablet PO (09:28)
[2021-12-28] MEDS: miconazole 2% topical cream 28 gm 1 APPLIC TOPICAL (10:58)
[2021-12-28] MEDS: blistex lip oint 7 gm Tube 1 APPLIC TOPICAL (10:59)
[2021-12-28] MEDS: ibuprofen 800 mg tablet PO (12:33)
--- NOTE | 2021-12-28 13:25 | W.PM.NPUDCS ---
Diagnoses at Discharge Discharge Diagnosis (1) Borderline personality disorder: Status: Acute (2) Amphetamine use disorder, severe: Status: Acute (3) Suicide ideation: Status: Acute (4) Acute anxiety: Status: Acute (5) Major depressive disorder, recurrent severe without psychotic features: Status: Acute (6) Alcohol use disorder, moderate, dependence: Status: Acute (7) Cannabis use disorder, severe, dependence: Status: Acute Reason for Visit Reason for Visit: SUICIDAL W/ANXIETY Brief History: History of Present Illness Faraz Rai is a 36 year old female admitted through the emergency department with the following report: HPI: [36]yo patient w/ hx of depression and alcohol dependence BIBA for anxiety and suicidal ideation. Patient was recently idscharged on 12/18/2021 for suicidal ideation. Patient has been compliant on medicine and denies any active plan. On arrival, the patient is AAOx3 and cooperative with my evaluation. No focal complaints of chest pain, shortness of breath, palpitations, N/V, focal GI/ complaints. Currently denies HI. No complaints of hallucinations. She had plans to go back and live with he and his father when she was discharged.? However quantities father said that she could not be there because she does not contribute to the household.? She then went to his mother's house and she said things did not go well there.? She then called the ambulance and came back to our emergency room.? She also says that she could not get her medication when she left the hospital last time.? He says that she feels like her medications are good and she will do better when she gets back on them.? She says that she continues to have suicidal ideations.? She was positive for methamphetamine but says it is a false positive Prozac and Wellbutrin.? However she does think that she should go to rehabilitation and will talk to manager social media about that. Below is her history from the last visit. Brief History: 36-year-old female comes in today with complaints of dyspnea and suicidal ideation.? Patient reported that she just wants to get back home to [facility].? Patient reports that she does feel suicidal but believes he will be better when she got back home.? Patient had made her way to [place] to visit with somebody since then has had increasing shortness of breath.? Patient is concerned that she may have Covid.? Patient appears anxious.? Patient appears well.? Patient appears in no pain.? Patient does have a history of substance abuse disorder, borderline personality disorder, nicotine dependence.? Patient reports no recent alcohol use, cannabis use, or other drug use.? Patient recently gave to a boy 7 months ago.? Patient does take routine medications for psychiatric disorder. MD complaint: suicidal ideation Onset (ago): day(s) Duration: intermittent History of same: Yes Relieving factors: none Exacerbating factors: drug use Context: significant life stressor (Away from home) Associated psychiatric symptoms: suicidal ideation and racing thoughts Associated symptoms: Reports depression and suicidal ideation Treatments prior to arrival: none If self harm: admits thoughts of self harm She was admitted to the neuropsychiatry unit for definitive treatment of these issues.? She was seen by Dr. Blanchard and [facility] several times in 2019.? His initial evaluation is documented below.? Medications prescribed as of October 2020 Geodon 60 mg twice a day, Prozac 20 mg daily, Vistaril 10 mg 3 times daily, trazodone 200 mg at bedtime.? It is unclear exactly how long she took those medications.? She says that she saw a provider in [facility] where she currently lives about 7 months ago.? She says that she has seen that person monthly since then.? She is currently on Prozac 20 mg,Vistaril 50 mg 4 times a day as needed, BuSpar 10 mg twice a day and Seroquel 100 mg at bedtime.? She says that she has been doing okay.? She was missing her family and friends and came back to [place] to see them.? She was thinking about moving back but then had a nervous breakdown and has been thinking about suicide for the last few days.? She is not sure why she is worse lately.? She has decided that she is not going to move back to [place].? She said that she stopped taking the Geodon and does not want to take that again because it made her sleepy.? She is not really sure what that was for.? She says that she gets depressed and thinks about hurting herself about twice a year.? She does not think that the Prozac is doing much for her.? She thought about trying the trazodone again but decided that she wants to stay with the Seroquel 100 mg daily.? She says it does not cause increased appetite or weight gain.? She tried some Zyprexa Zydis yesterday and felt it was helpful.? She asked if she could try that.? She was told that we were concerned about weight gain with Zyprexa.? She agreed to try some Abilify.? She wants to continue taking the Vistaril 50 mg as needed.? She wanted to change Prozac to Lexapro.? She does not really want to talk much at this time.? She did not get out of bed or sit up to talk to me.? She had a lot of trauma as a child and was in foster homes much of her childhood.? That is described in Dr. Blanchard's evaluation below.? Urine drug screen was positive for methamphetamine and marijuana. Hospital Course Hospital Course She slowly acclimated to the individual, group and milieu therapies provided. Her home medications were restarted and trazodone was added to assist with sleep. She work with the treatment team to identify appropriate outpatient resources and she was able to contract for safety outside the hospital prior to discharge. During the hospitalization, patient had routine laboratory studies which were within normal limits except for few outliers. Additionally there was a general medical evaluation which was also within normal limits and revealed no new acute processes. Discharge Summary: At the time of discharge, she denied psychosis or lethality. Mood and anxiety were well managed. Patient endorsed a plan to avoid all drugs of abuse and follow-up with the aftercare recommendations of the treatment team. Patient was evaluated and deemed to be absent credible lethality, and had achieved the maximum benefit from an inpatient hospitalization, so was discharged. Involuntary Hold Information 96 Hour Hold: 96 Hour Involuntary Admission: No Mental Status Exam MSE Comments: This is an overweight versus obese middle-aged female with adequate grooming and eye contact.? In hospital scrubs cooperative exam in no acute distress.? Speech was normal rate and volume.? Mood described as better, affect euthymic.? Thought process organized.? Thought content: Patient denied suicidal?or homicidal ideation, there were no delusions reported or noted, she denied any auditory or visual hallucinations.? Attention and concentration appeared intact and memory appeared mostly reliable but none were formally tested.? She was alert oriented x3.? Insight and judgment improving.? Impulse control appeared limited. Discharge Data Studies Completed and Pending: Laboratory Results WBC 13.1 10^3/uL (4.0 -10.0) H 12/21/21 18: RBC 5.35 10^6/uL (4.1 -5.3) H 12/21/21 18: Hgb 13.8 g/dL (11.5-1 5.3) 12/21/21: Hct 43.6 % (37.0-47.0 ) 12/21/21: MCV 81.5 fl (81-99) 12/21/21: MCH 25.8 pg (28.0-34. 0) L 12/21/21: MCHC 31.7 g/dL (30.0-3 6.0) 12/21/21: RDW 14.8 % (12.1-15.1 ) 12/21/21: Plt Count 560 10^3/cmm (130 -400) H 12/21/21: MPV 8.3 fL (7.4-10.4) 12/21/21 18: Neut % (Auto) 53.6 % 12/21/21: Lymph % (Auto) 35.9 % 12/21/21: Dundy % (Auto) 6.4 % 12/21/21: Eos % (Auto) 2.7 % 12/21/21: Baso % (Auto) 0.9 % 12/21/21: Neut # (Auto) 7.03 10^3/uL (1.8 -7.7) 12/21/21: Lymph # (Auto) 4.7 10^3/uL (0.8- 4.8) 12/21/21 18: Dundy # (Auto) 0.8 10^3/uL (0.2- 0.9) 12/21/21: Eos # (Auto) 0.4 10^3/uL (0.0- 0.8) 12/21/21: Baso # (Auto) 0.1 10^3/uL (0.0- 0.1) 12/21/21: Nucleated RBC % (a uto) 0 % 12/21/21 18: Nucleated RBCs # 0.0 /100WBC 12/21/21 18:32 Sodium 136 mmol/L (136-1 45) 12/21/21 18: Potassium 4.1 mmol/L (3.5-5 .1) 12/21/21 18: Chloride 99 mmol/L (98-107 ) 12/21/21 18: Carbon Dioxide 27 mmol/L (22-29) 12/21/21: Anion Gap 14.1 (5-19) 12/21/21: BUN 21 mg/dL (6-20) H 12/21/21 18: Creatinine 0.7 mg/dL (0.5-0. 9) 12/21/21: GFR Calculation 93.6 mL/min (90-1 30) 12/21/21: Glucose 93 mg/dL (65-115) 12/21/21: Calculated Osmolal ity 285 mOsm/kg (285- 295) 12/21/21: Calcium 9.8 mg/dL (8.5-10 .5) 12/21/21: Total Bilirubin 0.2 mg/dL (0.15-1 .2) 12/21/21: AST 39 U/L (0-32) H 12/21/21: ALT 78 U/L (0-33) H 12/21/21 18:32 Alkaline Phosphata se 90 IU/L (35-105) 12/21/21: Total Protein 8.1 g/dL (6.6-8.7 ) 12/21/21: Albumin 4.7 g/dL (3.5-5.2 ) 12/21/21: Globulin 3.4 g/dL (1.3-4.6 ) 12/21/21: Lipase 29 U/L (13-60) 12/21/21: TSH 1.55 uIU/mL (0.27 -4.20) 12/21/21: Free T4 1.39 ng/dL (0.82- 1.77) 12/21/21: HCG, Qual Negative (Negati ve) 12/21/21:32 Urine Color Yellow (Yellow) 12/23/21 03:57 Urine Appearance Sl hazy (CLEAR) 12/23/21 03:57 Urine pH 5 (5-7) 12/23/21 03:57 Ur Specific Gravit y 1.025 (1.005-1.0 30) 12/23/21 03:57 Urine Protein Neg (Negative) 12/23/21 03:57 Urine Glucose (UA) Norm (Normal) 12/23/21 03:57 Urine Ketones Negative (Negati ve) 12/23/21 03:57 Urine Blood 3+ (Negative) H 12/23/21 03:57 Urine Nitrate Negative (Negati ve) 12/23/21 03:57 Urine Bilirubin Neg (Negative) 12/23/21 03:57 Urine Urobilinogen Norm mg/dL (Negat kishan) 12/23/21 03:57 Ur Leukocyte Paulette ase Negative (Negati ve) 12/23/21 03:57 Urine RBC 5-10 /hpf (0-2) H 12/23/21 03:57 Urine WBC 0-4 /hpf (0-5) H 12/23/21 03:57 Ur Squamous Epith Cells 15-25 /hpf (0-5) H 12/23/21 03:57 Amorphous Sediment Not Reportable 12/23/21 03:57 Urine Bacteria 2+ /hpf (NONE) H 12/23/21 03:57 Salicylates < 0.3 mg/dL (3-10 ) L 12/21/21 18:32 Urine Opiates Scre en Negative ng/mL (N egative) 12/21/21 18:00 Acetaminophen < 5.0 ug/mL (10-3 0) L 12/21/21 18:32 Ur Barbiturates Sc reen Negative ng/mL (N egative) 12/21/21 18:00 Ur Phencyclidine S crn Negative ng/mL (N egative) 12/21/21 18:00 Ur Amphetamines Sc reen Positive ng/mL (N egative) H 12/21/21 18:00 U Benzodiazepines Scrn Negative ng/mL (N egative) 12/21/21 18:00 Urine Cocaine Scre en Negative ng/mL (N egative) 12/21/21 18:00 U Marijuana (THC) Screen Negative ng/mL (N egative) 12/21/21 18:00 Ethyl Alcohol < 10 mg/dL (0-10) 12/23/21 04:10 SARS-CoV-2 Ag (Rap id) Negative (Negati ve) 12/21/21 19:20 Vitals: Last Vital Signs Temp 97.6 F 12/28/21 06:00 Pulse 79 12/28/21 06:00 Resp 16 12/28/21 06:00 BP 126/79 12/28/21 06:00 Pulse Ox 93 12/28/21 06:00 Discharge Plan Discharge Patient Disposition: Home Condition: Stable Prescriptions: New trazodone 50 mg Tablet 50 mg PO BEDTIME PRN (Reason: Insomnia) 30 Days Qty: 30 1RF cephalexin 500 mg Capsule 500 mg PO QID 3 Days Qty: 9 1RF Continued naltrexone 50 mg tablet 50 mg PO DAILY 30 Days Qty: 30 1RF hydroxyzine pamoate 50 mg capsule 50 mg PO QID PRN (Reason: Anxiety) 30 Days Qty: 120 1RF quetiapine 100 mg tablet 100 mg PO BEDTIME 30 Days Qty: 30 1RF ferrous sulfate 325 mg (65 mg iron) tablet 325 mg PO DAILY 30 Days Qty: 30 1RF buspirone 10 mg Tablet 15 mg PO BID 30 Days Qty: 90 1RF omeprazole 20 mg Capsule,Delayed Release(Dr/Ec) 20 mg PO DAILY 30 Days Qty: 30 1RF polyethylene glycol 3350 17 gram/dose powder 17 g PO BID PRN (Reason: Constipation) 30 Days Qty: 30 1RF olanzapine 5 mg Tablet,Disintegrating 5 mg PO DAILY PRN (Reason: Agitation/Psychosis) 30 Days Qty: 30 1RF escitalopram oxalate 10 mg Tablet 10 mg PO DAILY 30 Days Qty: 30 1RF aripiprazole 10 mg Tablet 10 mg PO 0800 30 Days Qty: 30 1RF Discontinued quetiapine 100 mg tablet 100 mg PO BEDTIME 0RF Discharge Orders: Discharge Order (Routine); Ordered 12/28/21 Ordered By: Brian Conner Referrals: [facility] [Other[facility] - 01/02/22 9:30 am [facility] [place]Outside] (Walk-in on a Friday or 7:30am to 3pm.) Discharge Diet: Advance as tolerated Discharge Activity: Increase activity as tolerated Patient Instructions: Depression, Opioid Safety Discharge Attestations NPU Time Spent in Discharge Care*: less than 30 min Specific Discharge Activities: Specific discharge activities: educating patient, discussing with immigration case manager/social workers/dc planners, documenting/other paperwork and evaluating patient/reviewing data Coding Level of Care Code Acute Chg FW DC note Diagnoses Borderline personality disorder F60.3 Amphetamine use disorder, severe F15.20 Suicide ideation R45.851 Acute anxiety F41.9 Major depressive disorder, recurrent severe without psychotic features F33.2 Alcohol use disorder, moderate, dependence F10.20 Cannabis use disorder, severe, dependence F12.20
[2021-12-28 13:47] VITALS: BP 126/79; PULSE 79; RESP 16; TEMP 36.4; O2SAT 93
== END 2021-12-28 15:10 | disposition home or self-care (01) | DRG 880 ==
LOC: ER 12-23 06:26 → NP 12-23 17:40
PROVIDERS: Emergency Medicine; Admitting Provider Psychiatry & Neurology Psychiatry; Emergency Provider Family Medicine; Visit Provider Psychiatry & Neurology Psychiatry
DX: F41.9 Anxiety disorder, unspecified (principal); F33.2 Major depressive disorder, recurrent severe without psychotic features; R45.851 Suicidal ideations; F15.20 Other stimulant dependence, uncomplicated; F10.20 Alcohol dependence, uncomplicated; F17.210 Nicotine dependence, cigarettes, uncomplicated; F60.3 Borderline personality disorder; F12.20 Cannabis dependence, uncomplicated
CPT/HCPCS: 80053; 80306; 80307; 81001; 83690; 84439; 84443; 84703; 85025; 87426; 93005; 96372; 97150; 97165; 99285; J1200; J2060; J2765; J3490

== ENCOUNTER 2021-12-31 09:02 | Emergency (ER) | payer MEDICAID, SELFPAY ==
[2021-12-31 09:07] VITALS: BP 132/84; PULSE 105; RESP 16; TEMP 36.3; O2SAT 98; BMI 32.4
--- NOTE | 2021-12-31 09:30 | W.ED.GENADLT ---
HPI - General Adult General: Chief complaint: Dental/Oral Stated complaint: Toothache Time Seen by Provider: 12/31/21 09:04 Source: patient Mode of arrival: ambulatory Limitations: no limitations History of Present Illness: Patient is a 36-year-old female well-known to me here for complaints of dental pain/toothache and chronic lower back pain. Patient states she has a decayed molar to her left upper mouth that has been bothering her. She states she does have a dentist back home in [place] and states she plans on following up with them. She tells me her chronic lower back pain is may be slightly worse than normal. She is requesting IM pain medications and steroids. He does not have any saddle anesthesia or dysfunctions of bowel or bladder. She is ambulatory without difficulty. He is not having any facial swelling, difficulty swallowing, or controlling secretions. No fevers. Onset (ago): day(s) Location: mouth and back Pain Consistency: constant Associated symptoms: Deny chest pain, dyspnea, headache(s), malaise or rash Treatments prior to arrival: other (tylenol) Review of Systems Const: Denies: fever(s), chills, body aches, fatigue or malaise Eyes: Denies: change in vision or blurry vision ENMT: Reports: dental pain; Denies: throat pain, enlarged tonsils, odynophagia, hoarseness, mouth pain, swelling of lips/tongue, oral sores, bleeding gums or ear or mastoid pain Card: Denies: chest pain Resp: Denies: dyspnea GI: Denies: abdominal pain : Reports: dysuria (improving-states she is being treated for a UTI); Denies: flank pain, urinary hesitancy, hematuria or pelvic pain Musc: Reports: back pain (chronic); Denies: neck pain, extremity pain, extremity swelling, joint pain or joint swelling Skin/Breast: Denies: rash Neuro: Denies: headache(s), numbness in extremities, weakness in extremities, sensory changes or difficulty walking [facility] ED PFSH: Medical History (Updated 12/31/21 @ 09:32 by MARS Verma) Depression Social History Smoking and tobacco status: current every day smoker cigarettes Packs smoked per day: 0.5 Years cigarettes smoked: 22 Quit status (tobacco): has tried quititng Number of times tried to quit tobacco: 3 Second hand smoke exposure: Yes Smoking risk assessment/counseling performed?: Yes Tobacco counseling given: counseling >3 minutes Physical Exam Const: COMMON NORMALS: no acute distress, patient oriented x3, no limitations and alert GENERAL APPEARANCE: comfortable NUTRITIONAL APPEARANCE: overweight ORIENTATION/CONSCIOUSNESS: Yes awake, Yes oriented to person, Yes oriented to place and Yes oriented to time HENMT: COMMON NORMALS: normocephalic, atraumatic and Normal external nose present HEAD & SCALP: normal to inspection, normocephalic and atraumatic FACE & SINUS: normal facial exam NOSE: Normal external nose present MOUTH: Normal oral and palatal mucosa present, lip normal and tongue normal TEETH & GINGIVA: Yes caries and Yes poor dentition TEETH & GINGIVA IMAGES: 1. source of pain-severe decay; no obvious surrounding swelling; no abscess THROAT: posterior oropharynx normal, tonsils normal and uvula midline Eye: GENERAL EYE: appearance normal, both eyes and all related structures Neck/C-Spine: GENERAL: No anterior neck swelling and No submandibular swelling Lymph: LYMPHATIC: no lymphadenopathy noted Resp: COMMON NORMALS: normal respiratory effort and clear to auscultation bilaterally AUSCULTATION: clear to auscultation bilaterally Cardio: COMMON NORMALS: regular rate and regular rhythm RATE: regular rate RHYTHM: regular rhythm GI: COMMON NORMALS: Normal to inspection, nondistended, normoactive bowel sounds present, Soft to palpation, non-tender, No hepatosplenomegaly present and no masses PALPATION: Yes Soft to palpation and Yes No hepatosplenomegaly present : COMMON NORMALS: Yes no CVA tenderness BLADDER/KIDNEY EXAM: Yes no CVA tenderness Back/Pelvis: COMMON NORMALS: no CVA tenderness THORACIC SPINE/UPPER BACK: Yes normal to inspection, Yes thoracic ROM normal and No thoracic spinal tenderness LUMBAR SPINE/LOWER BACK: Yes paraspinal muscle tenderness (mild tenderness across lower back) Extremity: COMMON NORMALS: normal to inspection and full ROM GENERAL: Yes normal exam except as noted Neuro: GARTH COMA SCALE: document GCS findings Manilla coma scale eye opening: Spontaneous Manilla coma scale verbal response: Orientated Garth coma scale motor response: Obey commands Garth coma scale total score: 15 COMMON NORMALS: patient oriented x3, moves all extremities, no focal motor deficits, no sensory deficits noted and gait normal SENSORIUM/ORIENTATION: Yes alert, Yes oriented to person, Yes oriented to place and Yes oriented to time Skin: COMMON NORMALS: no rashes or lesions noted GENERAL SKIN EXAM: no rashes or lesions noted Course Vital Signs: Vital signs: Vital Signs Temperature 97.4 F L 12/31/21 09:07 Pulse Rate 105 H 12/31/21 09:07 Respiratory Rate 16 12/31/21 09:07 Blood Pressure 132/84 12/31/21 09:07 Pulse Oximetry 98 12/31/21 09:07 MDM - General Adult Medical Decision Making Patient is already taking Keflex for UTI which should cover for dental infection although I do not visualize any acute dental infections at this time on her exam. She will be treated with IM Toradol and dexamethasone for her lower back pain. She is requesting something to help with her dental pain is Tylenol has not been helping. She will be provided a prescription for Diclofenac. Return to ED precautions verbally discussed with patient. Recommend following up with a dentist as soon as possible when she gets home. Discharge Plan Discharge Patient Disposition: Home Clinical Impression: Dental decay, Toothache Chronic lower back pain Qualifiers: Back pain laterality: unspecified Sciatica presence: without sciatica Qualified Code(s): M54.50 - Low back pain, unspecified Condition: Stable Prescriptions: New diclofenac sodium 50 mg tablet,delayed release (DR/EC) 50 mg PO Q12H PRN (Reason: pain) Qty: 20 0RF No Action trazodone 50 mg Tablet 50 mg PO BEDTIME PRN (Reason: Insomnia) 30 Days Qty: 30 1RF cephalexin 500 mg Capsule 500 mg PO QID 3 Days Qty: 9 1RF naltrexone 50 mg tablet 50 mg PO DAILY 30 Days Qty: 30 1RF hydroxyzine pamoate 50 mg capsule 50 mg PO QID PRN (Reason: Anxiety) 30 Days Qty: 120 1RF quetiapine 100 mg tablet 100 mg PO BEDTIME 30 Days Qty: 30 1RF ferrous sulfate 325 mg (65 mg iron) tablet 325 mg PO DAILY 30 Days Qty: 30 1RF buspirone 10 mg Tablet 15 mg PO BID 30 Days Qty: 90 1RF omeprazole 20 mg Capsule,Delayed Release(Dr/Ec) 20 mg PO DAILY 30 Days Qty: 30 1RF polyethylene glycol 3350 17 gram/dose powder 17 g PO BID PRN (Reason: Constipation) 30 Days Qty: 30 1RF olanzapine 5 mg Tablet,Disintegrating 5 mg PO DAILY PRN (Reason: Agitation/Psychosis) 30 Days Qty: 30 1RF escitalopram oxalate 10 mg Tablet 10 mg PO DAILY 30 Days Qty: 30 1RF aripiprazole 10 mg Tablet 10 mg PO 0800 30 Days Qty: 30 1RF Discharge Orders: Discharge ED (Routine); Ordered 12/31/21 Ordered By: Lizz He Coding Level of Care Code ED Fishing Captain for Joseline Cisneros
[2021-12-31] MEDS: dexamethasone 10 mg/mL INJ 8 MG IM (10:25)
[2021-12-31] MEDS: ketorolac 60 mg/2 mL INJ IM (10:26)
[2021-12-31 10:29] VITALS: BP 145/82; PULSE 87; RESP 15; O2SAT 99
[2021-12-31 14:37] VITALS: BP 145/65; PULSE 76; O2SAT 99
== END 2021-12-31 14:38 | disposition home or self-care (01) ==
PROVIDERS: Emergency Provider Physician Assistant
DX: K02.9 Dental caries, unspecified (principal); G89.29 Other chronic pain; M54.50 Low back pain, unspecified; F17.210 Nicotine dependence, cigarettes, uncomplicated
CPT/HCPCS: 96372; 99283; J1100; J1885

== ENCOUNTER 2022-05-25 17:13 | Inpatient (IN) | payer MEDICAID, SELFPAY ==
[2022-05-25 17:35] VITALS: BP 147/88; RESP 16; TEMP 36.6; O2SAT 97; BMI 31.6
--- NOTE | 2022-05-25 17:38 | ED.C_ITS ---
HPI - Psych General: Stated Complaint: SI and depression Time Seen by Provider: 05/25/22 17:34 History of Present Illness: 36-year-old with history of substance abuse presents due to suicidal ideation. States she has been off her medications for 2 months due to somebody stealing them. States she would like to hurt herself but does not have a concrete plan. Does admit to recent marijuana and amphetamine use. Denies any homicidal ideation. Denies any recent actions to hurt herself. Review of Systems Narrative: - CONSTITUTIONAL: Denies weight loss, fever and chills. - HEENT: Denies changes in vision and hearing. - RESPIRATORY: Denies SOB and cough. - CV: Denies palpitations and CP. - GI: Denies abdominal pain, nausea, vomiting and diarrhea. - : Denies dysuria and urinary frequency. - MSK: Denies myalgia and joint pain. - SKIN: Denies rash and pruritus. - NEUROLOGICAL: Denies headache, weakness, numbness and syncope. - PSYCHIATRIC: as above PFSH ED PFSH: Social History Smoking and tobacco status: current every day smoker cigarettes Packs smoked per day: 0.5 Years cigarettes smoked: 22 Quit status (tobacco): has tried quititng Number of times tried to quit tobacco: 3 Second hand smoke exposure: Yes Smoking risk assessment/counseling performed?: Yes Tobacco counseling given: counseling >3 minutes Physical Exam Narrative: EXAM NARRATIVE: - GENERAL: Alert and oriented x 3. No acute distress. Well-nourished. - EYES: EOMI. Anicteric. - HENT: Atraumatic, no C-spine tenderness. Moist mucous membranes. No scleral icterus. No cervical lymphadenopathy. - LUNGS: Clear to auscultation bilaterally. No accessory muscle use. Equal lung sounds bilaterally. No respiratory distress. - CARDIOVASCULAR: Regular rate and rhythm. No murmur. No JVD. - ABDOMEN: Soft, non-tender and non-distended. Negative CVA tenderness bilaterally, no rebound or guarding, negative Morales sign. No palpable masses. - EXTREMITIES: No edema. Non-tender. - SKIN: No rashes or lesions. Warm. - NEUROLOGIC: No meningismus or focal neurological deficits. CN II-XII grossly intact. - PSYCHIATRIC: Suicidal ideation MDM - Psych Medical Decision Making 36-year-old presents due to suicidal ideation. Does admit to recent marijuana amphetamine use 4 days ago. denies any homicidal ideation or any physical attempt to hurt herself. Does not appear to be in any active toxidrome at the moment. Lab work ordered. Discussed with psychiatry and they agreed patient would benefit from admission. Patient admitted in stable condition. Further evaluation management per psychiatry team. Discharge Plan Discharge Condition: Stable Prescriptions: No Action trazodone 50 mg Tablet 50 mg PO BEDTIME PRN (Reason: Insomnia) 30 Days Qty: 30 1RF cephalexin 500 mg Capsule 500 mg PO QID 3 Days Qty: 9 1RF naltrexone 50 mg tablet 50 mg PO DAILY 30 Days Qty: 30 1RF hydroxyzine pamoate 50 mg capsule 50 mg PO QID PRN (Reason: Anxiety) 30 Days Qty: 120 1RF quetiapine 100 mg tablet 100 mg PO BEDTIME 30 Days Qty: 30 1RF ferrous sulfate 325 mg (65 mg iron) tablet 325 mg PO DAILY 30 Days Qty: 30 1RF buspirone 10 mg Tablet 15 mg PO BID 30 Days Qty: 90 1RF omeprazole 20 mg Capsule,Delayed Release(Dr/Ec) 20 mg PO DAILY 30 Days Qty: 30 1RF polyethylene glycol 3350 17 gram/dose powder 17 g PO BID PRN (Reason: Constipation) 30 Days Qty: 30 1RF olanzapine 5 mg Tablet,Disintegrating 5 mg PO DAILY PRN (Reason: Agitation/Psychosis) 30 Days Qty: 30 1RF escitalopram oxalate 10 mg Tablet 10 mg PO DAILY 30 Days Qty: 30 1RF diclofenac sodium 50 mg tablet,delayed release (DR/EC) 50 mg PO Q12H PRN (Reason: pain) Qty: 20 0RF aripiprazole 10 mg Tablet 10 mg PO 0800 30 Days Qty: 30 1RF Coding Level of Care Code ED Juice Standardizer for Joseline Cisneros
[2022-05-25 17:49] VITALS: BP 147/88; RESP 16; TEMP 36.6; O2SAT 97
[2022-05-25 17:56] LABS: HCG Qualitative Urine. Negative (Negative)
[2022-05-25 18:00] LABS: Basophils # 0.1 10^3/uL (0.0-0.1); Basophils % 0.5 %; Eosinophils # 0.2 10^3/uL (0.0-0.8); Eosinophils % 2.3 %; Hemoglobin 11.8 g/dL (11.5-15.3); Lymphocytes # 2.6 10^3/uL (0.8-4.8); Lymphocytes % 25.8 %; Mean Corpuscular HGB Conc 31.9 g/dL (30.0-36.0); Mean Corpuscular Hemoglobin 26.2 pg (28.0-34.0); Mean Corpuscular Volume 82.2 fl (81-99); Mean Platelet Volume 8.9 fL (7.4-10.4); Monocytes # 0.4 10^3/uL (0.2-0.9); Monocytes % 4.1 %; Neutrophils # 6.81 10^3/uL (1.8-7.7); Neutrophils % 66.8 %; Nucleated Red Blood Cells % 0 %; Platelet Count 482 10^3/cmm (130-400); Red Cell Distribution Width 15.8 % (12.1-15.1); White Blood Count 10.2 10^3/uL (4.0-10.0)
[2022-05-25 18:27] LABS: Amphetamines Screen Urine Positive (Negative); Barbiturates Screen Urine Negative (Negative); Benzodiazepines Screen Urine Negative (Negative); Cocaine Screen Urine Negative (Negative); Opiate Screen Urine Negative (Negative); PCP Screen Urine Negative (Negative); THC Screen Urine Positive (Negative)
[2022-05-25 18:40] LABS: Alanine Aminotransferase 22 U/L (0-33); Albumin Level 4.1 g/dL (3.5-5.2); Alkaline Phosphatase 77 IU/L (35-105); Anion Gap 12.9 (5-19); Aspartate Amino Transferase 20 U/L (0-32); Blood Urea Nitrogen 9 mg/dL (6-20); Calcium 9.1 mg/dL (8.5-10.5); Carbon Dioxide 24 mmol/L (22-29); Chloride 102 mmol/L (98-107); Globulin 2.8 g/dL (1.3-4.6); Glomerular Filtration Rate 93.6 mL/min (90-130); Glucose 89 mg/dL (65-115); Osmolality Calculated 278 mOsm/kg (285-295); Potassium 3.9 mmol/L (3.5-5.1); Salicylate 2.6 mg/dL (3-10); Sodium 135 mmol/L (136-145); Thyroid Stimulating Hormone 1.39 uIU/mL (0.27-4.20); Total Bilirubin 0.2 mg/dL (0.15-1.2); Total Protein 6.9 g/dL (6.6-8.7)
[2022-05-25 18:41] LABS: Acetaminophen < 5.0 ug/mL (10-30); Alcohol Level < 10 mg/dL (0-10)
[2022-05-25 18:46] LABS: Add Urine Microscopic? YES; Bilirubin Urine Neg (Negative); Blood Urine 3+ (Negative); Glucose Urine UA Norm (Normal); Ketones Urine Negative (Negative); Leukocyte Esterase Urine Negative (Negative); Nitrate Urine Negative (Negative); Protein Urine Neg (Negative); Urine Appearance Hazy (CLEAR); Urine Color Yellow (Yellow); Urobilinogen Urine Norm (Negative); pH Urine 6 (5-7)
[2022-05-25 18:49] LABS: RBC Urine 0-4 /hpf (0-2); WBC Urine 0-4 /hpf (0-5)
[2022-05-25 18:50] LABS: Add Urine Culture? No; Bacteria Urine TRACE /hpf; Calcium Oxalate Crystals Urine 0-4 /hpf; Mucus Urine TRACE /hpf
[2022-05-25 20:59] VITALS: BP 128/83; PULSE 76; RESP 18; TEMP 36.6; O2SAT 100
[2022-05-25] MEDS: hyDROXYzine 25 mg Capsule 50 MG PO (21:39)
[2022-05-25] MEDS: trazodone 50 mg Tablet PO (21:41)
[2022-05-25 22:00] VITALS: BP 128/83; PULSE 76; RESP 18; TEMP 36.6; O2SAT 100
--- NOTE | 2022-05-25 22:23 | PC.NURSE ---
Admit from ER 2033 via w/c with staff escort. Voluntary admit. Anxiety, SI no plan reason per Pt for admission. Off meds x 2 months. UDS positive for thc and Met, Pt admits to recent use. NKA. No med Hx. Pysch Hx of depression, SI, substance abuse. Recently seen at [facility] in [place], [place], Dr Gabe Armstrong prescribing her meds. On arrival, bright affect, A/O x 4. Conversation is oriented and goal direct. Anxiety, conversation centered on meds, especially for anxiety and making numerous requests for same. Cooperative demeanor with admission and on unit. Denies SI/HI/AVH. Contracts for safety.
[2022-05-26 06:00] VITALS: RESP 16
[2022-05-26] MEDS: OLANZapine 5 mg ODT PO ×2 (11:43→17:12)
[2022-05-26] MEDS: hyDROXYzine 25 mg Capsule 50 MG PO ×3 (11:43→20:15)
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
[2022-05-26 14:00] VITALS: BP 123/86; PULSE 76; RESP 15; TEMP 36.9; O2SAT 97
[2022-05-26] MEDS: nicotine 2 mg Gum BUCCAL (17:12)
[2022-05-26] MEDS: trazodone 50 mg Tablet PO (20:14)
[2022-05-26 20:42] VITALS: BP 103/68; PULSE 75; RESP 17; TEMP 36.7; O2SAT 98
[2022-05-26] MEDS: quetiapine 100 mg Tablet 200 MG PO (20:43)
[2022-05-27 06:00] VITALS: BP 125/81; PULSE 63; RESP 16; TEMP 36.7; O2SAT 97
[2022-05-27] MEDS: escitalopram 10 mg Tablet PO (08:23)
[2022-05-27] MEDS: ibuprofen 600 mg Tablet PO (08:23)
[2022-05-27] MEDS: hyDROXYzine 25 mg Capsule PO ×3 (08:23→19:46)
--- NOTE | 2022-05-27 08:24 | PC.NURSE ---
PRN VISTARIL 25 MG GIVEN PO PER PT C/O STATED ANXIETY
[2022-05-27 14:00] VITALS: BP 118/75; PULSE 78; RESP 18; TEMP 36.9; O2SAT 97
--- NOTE | 2022-05-27 16:07 | P.NPUPN_ITS ---
Subjective NPU Subjective: Patient presents today reporting that things are going okay. She reports that she and Dr. Salinas were told her medication that she is on the Seroquel 200 mg at night as well as Lexapro 10 mg. She reports that feels that this is helping. She endorsed concerns for possible UTI symptoms and we agreed we would investigate and see if an antibiotic is necessary. She also was inquiring about Flexeril for back but she had no clear history reported of back injury. We discussed we will explore her history to see if that have been part of previously treatment. Otherwise she reports that they are working on different discharge options. Mental Status Exam MSE Comments: This is an obese middle-aged female with adequate grooming and eye contact.?there were old healed scars on forearm No abnormal movements except for mild psychomotor retardation. Cooperative with exam in mild distress. Speech was slightly decreased rate and volume.? Mood described as depressed, Affect was restricted in range. ? Thought process was organized.? Thought content: Patient endorsed suicidal?ideation? but no homicidal ideation, there were no delusions reported or noted. She did not appear to be responding to in ternal stimuli. Attention and concentration appeared intact and memory appeared reliable but none were formally tested. She was alert and oriented x3. Insight and judgment appeared limited, input appeared limited. Vitals/I&O/Wt Last Vital Signs Temp 98.4 F 05/27/22 14:00 Pulse 78 05/27/22 14:00 Resp 18 05/27/22 14:00 BP 118/75 05/27/22 14:00 Pulse Ox 97 05/27/22 14:00 Weight last 48 hrs Weight 90.718 kg Data NPU : 05/25/22 17:51 05/25/22 17:51 A&P Assessment and plan (1) Bipolar disorder: Status: Acute (2) Borderline personality disorder: Status: Acute (3) Amphetamine use disorder, severe: Status: Acute (4) Acute anxiety: Status: Acute (5) Alcohol use disorder, moderate, dependence: Status: Acute (6) Cannabis use disorder, severe, dependence: Status: Acute Plan Patient 36 year old white female with Bipolar Disorder NOS, Borderline Personality Disorder with acute anxiety, suicidal ideation, along with polysubstance abuse recently who reports recent lack of success with therapy and medications to manage her mood. 1. Continue current medication. Continue Seroquel 200 mg p.o. nightly and Lexapro 10 daily. 2. Continue every 15 minute checks for safety. 3. Encourage individual, group and milieu therapies. 4. Encourage sober living treatment after discharge at the highest level of care to which he is willing to commit. Involuntary Hold Information 96 Hour Hold: 96 Hour Involuntary Admission: No Attestations NPU Medical Necessity Statement*: Inpatient hospitalization is medically necessary and the clinically appropriate intervention at this time. We will monitor medication to make changes as indicated. Likely length of stay 2-4 days. Coding Level of Care Code Acute Senior Group Manager for g Fwd Diagnoses Bipolar disorder F31.9 Borderline personality disorder F60.3 Amphetamine use disorder, severe F15.20 Acute anxiety F41.9 Alcohol use disorder, moderate, dependence F10.20 Cannabis use disorder, severe, dependence F12.20
[2022-05-27] MEDS: nicotine 2 mg Gum BUCCAL ×2 (16:46→19:48)
--- NOTE | 2022-05-27 16:46 | PC.NURSE ---
PRN VISTARIL 25 MG GIVEN PO PER PT REQUEST OF ANXIETY MED
[2022-05-27] MEDS: quetiapine 100 mg Tablet 200 MG PO (19:45)
[2022-05-27] MEDS: acetaminophen 325 mg Tablet 650 MG PO (19:46)
[2022-05-27] MEDS: trazodone 50 mg Tablet PO (19:47)
[2022-05-27 20:21] VITALS: BP 126/67; PULSE 87; RESP 16; O2SAT 96
[2022-05-28 06:00] VITALS: BP 127/84; PULSE 71; RESP 15; TEMP 36.7; O2SAT 96
[2022-05-28] MEDS: hyDROXYzine 25 mg Capsule PO ×3 (08:40→20:12)
[2022-05-28] MEDS: nicotine 2 mg Gum BUCCAL ×2 (08:40→20:11)
[2022-05-28] MEDS: OLANZapine 5 mg ODT PO (08:40)
[2022-05-28] MEDS: escitalopram 10 mg Tablet PO (08:40)
[2022-05-28] MEDS: haloperidol 5 mg Tablet PO (10:11)
[2022-05-28] MEDS: acetaminophen 325 mg Tablet 650 MG PO ×2 (11:54→20:13)
[2022-05-28 14:00] VITALS: BP 130/68; PULSE 92; RESP 16; TEMP 37; O2SAT 97
--- NOTE | 2022-05-28 18:52 | W.PM.NPUPNS ---
Subjective NPU Subjective: Patient presents today reporting to be better overall tolerating medications without any challenges. She endorses being less irritable and feeling more positive about dealing with her challenges. Discussed with the treatment team for discharge options and the likelihood of discharge in the next 48 hours. Mental Status Exam MSE Comments: This is an obese middle-aged female with adequate grooming and eye contact.?there were old healed scars on forearm No abnormal movements except for mild psychomotor retardation. Cooperative with exam in no acute distress. Speech was slightly decreased rate and volume.? Mood described as clear, Affect was brighter. ? Thought process was organized.? Thought content: Patient revealed diminishing suicidal?ideation? but no homicidal ideation, there were no delusions reported or noted. She did not appear to be responding to internal stimuli. Attention and concentration appeared intact and memory appeared reliable but none were formally tested. She was alert and oriented x3. Insight and judgment appeared limited, input appeared limited. Vitals/I&O/Wt Last Vital Signs Temp 97.6 F 05/28/22 20:24 Pulse 70 05/28/22 20:24 Resp 18 05/28/22 20:24 BP 126/8 05/28/22 20:24 Pulse Ox 96 05/28/22 20:24 O2 Del Method 05/25/22 21:02 Data NPU : 05/25/22 17:51 05/25/22 17:51 A&P Assessment and plan (1) Bipolar disorder: Status: Acute (2) Borderline personality disorder: Status: Acute (3) Amphetamine use disorder, severe: Status: Acute (4) Acute anxiety: Status: Acute (5) Alcohol use disorder, moderate, dependence: Status: Acute (6) Cannabis use disorder, severe, dependence: Status: Acute Plan Patient 36 year old white female with Bipolar Disorder NOS, Borderline Personality Disorder with acute anxiety, suicidal ideation, along with polysubstance abuse recently who reports recent lack of success with therapy and medications to manage her mood. 1. Continue current medication. Continue Seroquel 200 mg p.o. nightly and Lexapro 10 daily. 2. Continue every 15 minute checks for safety. 3. Encourage individual, group and milieu therapies. 4. Encourage sober living treatment after discharge at the highest level of care to which he is willing to commit. Involuntary Hold Information 96 Hour Hold: 96 Hour Involuntary Admission: No Attestations NPU Medical Necessity Statement*: Inpatient hospitalization is medically necessary and the clinically appropriate intervention at this time. We will monitor medication to make changes as indicated. Likely length of stay 1-3 days. Coding Level of Care Code Acute Warp Trucker for g Fwd Diagnoses Bipolar disorder F31.9 Borderline personality disorder F60.3 Amphetamine use disorder, severe F15.20 Acute anxiety F41.9 Alcohol use disorder, moderate, dependence F10.20 Cannabis use disorder, severe, dependence F12.20
[2022-05-28] MEDS: quetiapine 100 mg Tablet 200 MG PO (20:11)
[2022-05-28] MEDS: trazodone 50 mg Tablet PO (20:12)
[2022-05-28 20:24] VITALS: BP 126/8; PULSE 70; RESP 18; TEMP 36.4; O2SAT 96
[2022-05-29 06:00] VITALS: BP 105/71; PULSE 81; RESP 16; TEMP 36.3; O2SAT 98
[2022-05-29] MEDS: escitalopram 10 mg Tablet PO (08:16)
[2022-05-29] MEDS: nicotine 2 mg Gum BUCCAL ×3 (08:16→12:30)
[2022-05-29] MEDS: ibuprofen 600 mg Tablet PO (08:16)
[2022-05-29] MEDS: OLANZapine 5 mg ODT PO ×2 (08:17→12:30)
[2022-05-29] MEDS: hyDROXYzine 25 mg Capsule PO (10:26)
[2022-05-29] MEDS: acetaminophen 325 mg Tablet 650 MG PO (10:29)
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
[2022-05-29 12:16] VITALS: BP 105/71; PULSE 81; RESP 16; TEMP 36.3; O2SAT 98
== END 2022-05-29 13:50 | disposition home or self-care (01) | DRG 885 ==
LOC: ER 17:41 → NP 18:35
PROVIDERS: Admitting Provider Psychiatry & Neurology Psychiatry; Emergency Provider Emergency Medicine; Visit Provider Psychiatry & Neurology Psychiatry
DX: F31.9 Bipolar disorder, unspecified (principal); R45.851 Suicidal ideations; F15.20 Other stimulant dependence, uncomplicated; F41.9 Anxiety disorder, unspecified; F12.20 Cannabis dependence, uncomplicated; F10.20 Alcohol dependence, uncomplicated; F17.210 Nicotine dependence, cigarettes, uncomplicated; F60.3 Borderline personality disorder
CPT/HCPCS: 36415; 80053; 80306; 80307; 81001; 81025; 84443; 85025; 97165; 99285

== ENCOUNTER 2022-06-23 02:17 | Inpatient (IN) | payer OTHER, SELFPAY ==
[2022-06-23 02:22] VITALS: BP 119/90; PULSE 86; RESP 16; TEMP 36.6; O2SAT 98; BMI 31.3
[2022-06-23] MEDS: LORazepam 1 mg Tablet PO (03:53)
[2022-06-23] MEDS: HYDROcodone-acetaminophen 5-325 mg Tablet 1 TAB PO (03:53)
[2022-06-23 04:28] LABS: Basophils # 0.1 10^3/uL (0.0-0.1); Basophils % 0.8 %; Eosinophils # 0.6 10^3/uL (0.0-0.8); Eosinophils % 4.1 %; Hematocrit 37.2 % (37.0-47.0); Hemoglobin 11.7 g/dL (11.5-15.3); Lymphocytes # 4.5 10^3/uL (0.8-4.8); Lymphocytes % 31.3 %; Mean Corpuscular HGB Conc 31.5 g/dL (30.0-36.0); Mean Corpuscular Hemoglobin 25.9 pg (28.0-34.0); Mean Corpuscular Volume 82.3 fl (81-99); Mean Platelet Volume 8.4 fL (7.4-10.4); Monocytes # 0.6 10^3/uL (0.2-0.9); Monocytes % 4.4 %; Neutrophils # 8.54 10^3/uL (1.8-7.7); Nucleated Red Blood Cells % 0 %; Platelet Count 510 10^3/cmm (130-400); Red Blood Count 4.52 10^6/uL (4.1-5.3); Red Cell Distribution Width 16.9 % (12.1-15.1); White Blood Count 14.5 10^3/uL (4.0-10.0)
[2022-06-23 04:53] LABS: Alanine Aminotransferase 19 U/L (0-33); Alkaline Phosphatase 95 U/L (35-105); Anion Gap 12.8 (5-19); Aspartate Amino Transferase 14 U/L (0-32); Blood Urea Nitrogen 15 mg/dL (6-20); Calcium 9.4 mg/dL (8.5-10.5); Carbon Dioxide 28 mmol/L (22-29); Chloride 105 mmol/L (98-107); Globulin 2.9 g/dL (1.3-4.6); Glomerular Filtration Rate 93.6 mL/min (90-130); Glucose 128 mg/dL (65-115); Osmolality Calculated 296 mOsm/kg (285-295); Potassium 3.8 mmol/L (3.5-5.1); Sodium 142 mmol/L (136-145); Total Bilirubin 0.2 mg/dL (0.15-1.2); Total Protein 6.9 g/dL (6.6-8.7)
[2022-06-23 04:54] LABS: Acetaminophen < 5.0 ug/mL (10-30); Alcohol Level < 10 mg/dL (0-10); Salicylate < 0.3 mg/dL (3-10)
--- NOTE | 2022-06-23 05:07 | ED.C_ITS ---
HPI - Psych General: Chief Complaint: Psychiatric Symptoms Stated Complaint: SI, fell down stairs Time Seen by Provider: 06/23/22 02:28 Source: patient History of Present Illness: 36-year-old female with a history of depression. She has had psychiatric unit admissions prior, last being 3 weeks or so ago. She notes that she began to have suicidal ideations within the last 24 hours. No definite plan. She does have recurrent thoughts of suicide. She denies any hallucinations. She denies drug or alcohol use. She has been taking her medications. She notes that she fell down the stairs at home earlier, and injured her head, she was not knocked out. She has a mild headache. No vomiting. Weakness, vision, or speech problems. MD complaint: suicidal ideation and feels depressed Onset (ago): hour(s) Duration: constant History of same: Yes Relieving factors: none Exacerbating factors: none Associated psychiatric symptoms: depression and suicidal ideation Associated symptoms: Reports depression and suicidal ideation; Deny auditory hallucinations, visual hallucinations, delusions or homicidal ideation If self harm: admits thoughts of self harm Review of Systems Const: Denies: fever(s) or chills Eyes: Denies: change in vision ENMT: Denies: throat pain Card: Denies: chest pain Resp: Denies: dyspnea, productive cough or non-productive cough GI: Denies: abdominal pain, nausea, vomiting or hematemesis Skin/Breast: Denies: rash Neuro: Reports: headache(s) Psych: Reports: depression and suicidal ideation; Denies: visual hallucinations, auditory hallucinations or homicidal ideation [facility] ED PFSH: Medical History (Updated 06/23/22 @ 05:12 by Juan Long DO) Major depressive disorder, recurrent severe without psychotic features Psychiatric care Social History Smoking and tobacco status: current every day smoker cigarettes Packs smoked per day: 0.5 Years cigarettes smoked: 22 Quit status (tobacco): has tried quititng Number of times tried to quit tobacco: 3 Second hand smoke exposure: Yes Smoking risk assessment/counseling performed?: Yes Tobacco counseling given: counseling >3 minutes Female Reproductive History: Date of last menstrual period: 06/22/22 Physical Exam Const: GENERAL APPEARANCE: cooperative; not ill appearing HENMT: COMMON NORMALS: normocephalic, atraumatic and Normal external nose present HEAD & SCALP: normocephalic, atraumatic and scalp tenderness (left occipital) FACE & SINUS: normal facial exam NOSE: Normal external nose present and Normal nares present Eye: COMMON NORMALS: Equal, round and reactive pupils present and EOMs intact bilaterally PUPIL: Yes Equal, round and reactive pupils present Neck/C-Spine: GENERAL: Yes trachea midline Chest: CHEST: Yes Symmetrical chest wall rise Resp: COMMON NORMALS: normal respiratory effort, No retractions, No use of accessory muscles and clear to auscultation bilaterally AUSCULTATION: clear to auscultation bilaterally Cardio: COMMON NORMALS: regular rate and regular rhythm RATE: regular rate RHYTHM: regular rhythm GI: COMMON NORMALS: Normal to inspection, nondistended, normoactive bowel sounds present Extremity: COMMON NORMALS: no pedal edema Neuro: GARTH COMA SCALE: document GCS findings Garth coma scale eye opening: Spontaneous [place] coma scale verbal response: Orientated Garth coma scale motor response: Obey commands [place] coma scale total score: 15 SPEECH: speech normal Psych: COMMON NORMALS: speech normal ATTITUDE: Yes calm ACTIVITY/MOTOR BEHAVIOR: Yes appropriate eye contact SPEECH: Yes normal speech THOUGHT CONTENT: No delusions Course Vital Signs: Vital signs: Vital Signs Temperature 98.4 F 06/23/22 13:52 Pulse Rate 72 06/23/22 13:52 Respiratory Rate 16 06/23/22 13:52 Blood Pressure 147/79 06/23/22 13:52 Pulse Oximetry 95 06/23/22 13:52 Oxygen Delivery Me thod 06/23/22 13:52 [facility] - Psych Medical Decision Making 36-year-old female with suicidal ideations. No specific plan. Her white blood cell count is 14.5, with no left shift. She has had high white blood cell counts in the past she has no toxic or infectious symptoms. BMP is normal. She is not intoxicated with alcohol. Urinalysis is pending. Medically, she appears stable. She has a small scalp contusion. She wishes to stay for psychiatric evaluation. Psychiatry accepts admission. Lab Data : 06/23/22 04:20 06/23/22 04:20 Laboratory Results WBC 14.5 10^3/uL (4.0-10.0) H 06/23/22 04:20 RBC 4.52 10^6/uL (4.1-5.3) 06/23/22 04:20 Hgb 11.7 g/dL (11.5-15.3) 06/23/22 04:20 Hct 37.2 % (37.0-47.0) 06/23/22 04:20 MCV 82.3 fl (81-99) 06/23/22 04:20 MCH 25.9 pg (28.0-34.0) L 06/23/22 04:20 MCHC 31.5 g/dL (30.0-36.0) 06/23/22 04:20 RDW 16.9 % (12.1-15.1) H 06/23/22 04:20 Plt Count 510 10^3/cmm (130-400) H 06/23/22 04:20 MPV 8.4 fL (7.4-10.4) 06/23/22 04:20 Neut % (Auto) 59.0 % 06/23/22 04:20 Lymph % (Auto) 31.3 % 06/23/22 04:20 [place] % (Auto) 4.4 % 06/23/22 04:20 Eos % (Auto) 4.1 % 06/23/22 04:20 Baso % (Auto) 0.8 % 06/23/22 04:20 Neut # (Auto) 8.54 10^3/uL (1.8-7.7) H 06/23/22 04:20 Lymph # (Auto) 4.5 10^3/uL (0.8-4.8) 06/23/22 04:20 [place] # (Auto) 0.6 10^3/uL (0.2-0.9) 06/23/22 04:20 Eos # (Auto) 0.6 10^3/uL (0.0-0.8) 06/23/22 04:20 Baso # (Auto) 0.1 10^3/uL (0.0-0.1) 06/23/22 04:20 Nucleated RBC % (auto) 0 % 06/23/22 04:20 Nucleated RBCs # 0.0 /100WBC 06/23/22 04:20 Sodium 142 mmol/L (136-145) 06/23/22 04:20 Potassium 3.8 mmol/L (3.5-5.1) 06/23/22 04:20 Chloride 105 mmol/L (98-107) 06/23/22 04:20 Carbon Dioxide 28 mmol/L (22-29) 06/23/22 04:20 Anion Gap 12.8 (5-19) 06/23/22 04:20 BUN 15 mg/dL (6-20) 06/23/22 04:20 Creatinine 0.7 mg/dL (0.5-0.9) 06/23/22 04:20 GFR Calculation 93.6 mL/min (90-130) 06/23/22 04:20 Glucose 128 mg/dL (65-115) H 06/23/22 04:20 Calculated Osmolality 296 mOsm/kg (285-295) H 06/23/22 04:20 Calcium 9.4 mg/dL (8.5-10.5) 06/23/22 04:20 Total Bilirubin 0.2 mg/dL (0.15-1.2) 06/23/22 04:20 AST 14 U/L (0-32) 06/23/22 04:20 ALT 19 U/L (0-33) 06/23/22 04:20 Alkaline Phosphatase 95 U/L (35-105) 06/23/22 04:20 Total Protein 6.9 g/dL (6.6-8.7) 06/23/22 04:20 Albumin 4.0 g/dL (3.5-5.2) 06/23/22 04:20 Globulin 2.9 g/dL (1.3-4.6) 06/23/22 04:20 Salicylates < 0.3 mg/dL (3-10) L 06/23/22 04:20 Acetaminophen < 5.0 ug/mL (10-30) L 06/23/22 04:20 Ethyl Alcohol < 10 mg/dL (0-10) 06/23/22 04:20 Discharge Plan Discharge Patient Disposition: Admitted As Inpatient Admit Provider: Brian Conner Clinical Impression: Suicidal ideation, Depression Condition: Stable Coding Level of Care Code ED Certified Financial Planner for Joseline Cisneros
[2022-06-23 05:30] LABS: HCG Qualitative Urine. Negative (Negative)
[2022-06-23 05:52] VITALS: BP 135/72; PULSE 64; RESP 18; O2SAT 98
[2022-06-23 06:08] VITALS: BP 119/74; PULSE 77; RESP 18; TEMP 36.5; O2SAT 96
[2022-06-23 06:09] VITALS: BP 135/72; PULSE 64; RESP 18; O2SAT 98
[2022-06-23 06:30] LABS: Amphetamines Screen Urine Positive (Negative); Barbiturates Screen Urine Negative (Negative); Benzodiazepines Screen Urine Negative (Negative); Cocaine Screen Urine Negative (Negative); Opiate Screen Urine Negative (Negative); PCP Screen Urine Negative (Negative); THC Screen Urine Negative (Negative)
[2022-06-23 06:37] LABS: Bilirubin Urine Neg (Negative); Blood Urine 2+ (Negative); Glucose Urine UA Norm (Normal); Ketones Urine 1+ (Negative); Nitrate Urine Negative (Negative); Protein Urine Neg (Negative); Urine Appearance SL Hazy (CLEAR); Urine Color Yellow (Yellow); pH Urine 6 (5-7)
[2022-06-23 06:38] LABS: Add Urine Culture? No; Add Urine Microscopic? YES; Bacteria Urine 1+ /hpf; Leukocyte Esterase Urine Trace (Negative); RBC Urine 0-4 /hpf (0-2); Urobilinogen Urine 1 mg/dL (Negative)
[2022-06-23] MEDS: nicotine 2 mg Gum BUCCAL ×3 (06:45→20:12)
[2022-06-23] MEDS: acetaminophen 325 mg Tablet 650 MG PO (06:46)
[2022-06-23] MEDS: hyDROXYzine 25 mg Capsule 50 MG PO ×2 (06:48→17:49)
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
[2022-06-23] MEDS: escitalopram 10 mg Tablet PO (09:16)
[2022-06-23 13:52] VITALS: BP 147/79; PULSE 72; RESP 16; TEMP 36.9; O2SAT 95
[2022-06-23] MEDS: quetiapine 100 mg Tablet 200 MG PO (20:10)
[2022-06-23 22:00] VITALS: BP 129/79; PULSE 81; RESP 16; TEMP 37.2; O2SAT 96
[2022-06-24 06:00] VITALS: BP 113/83; PULSE 79; RESP 16; TEMP 36.6; O2SAT 94
[2022-06-24] MEDS: escitalopram 10 mg Tablet PO (08:39)
--- NOTE | 2022-06-24 10:28 | PC.OT ---
OT EVALUATION ATTEMPTED. PATIENT SLEEPING SOUNDLY AND UNABLE TO AWAKEN FOR THERAPY
[2022-06-24] MEDS: hyDROXYzine 25 mg Capsule 50 MG PO (12:39)
[2022-06-24] MEDS: nicotine 2 mg Gum BUCCAL ×2 (12:39→17:53)
[2022-06-24 14:00] VITALS: BP 128/79; PULSE 78; RESP 15; TEMP 36.6; O2SAT 97
--- NOTE | 2022-06-24 15:22 | W.PM.NPUPNS ---
Subjective NPU Subjective: Patient presents today reporting that she is feeling a little better. She reports she feels confident because she has gotten better in some ways. She reports he has a trailer to return to and looks forward to doing that and that she came here mostly to make sure her medication was wearing away. She continues to struggle with identifying and accepting the role that addiction plays in her meds get out of sorts and her ending up in the hospital in the first place. Mental Status Exam MSE Comments: This is an obese 36-year-old female with limited grooming and eye contact.?there were old healed scars on forearm. No abnormal movements except for mild psychomotor retardation. Cooperative with exam in no acute distress. Speech was normal rate and volume.? Mood described as better, Affect slightly subdued. ? Thought process was organized.? Thought content: Patient denied suicidal or homicidal ideation, there were no delusions reported or noted, and she denied auditory or visual hallucinations. Attention and concentration appeared intact and memory appeared somewhat reliable but none were formally tested. She was alert and oriented x3. Insight and judgment appeared limited, impulse control appeared limited versus impaired. Vitals/I&O/Wt Last Vital Signs Temp 97.8 F 06/24/22 06:00 Pulse 79 06/24/22 06:00 Resp 16 06/24/22 06:00 BP 113/83 06/24/22 06:00 Pulse Ox 94 06/24/22 06:00 O2 Del Method 06/24/22 06:00 Weight last 48 hrs Weight 90.718 kg Data NPU : 06/23/22 04:20 06/23/22 04:20 A&P Assessment and plan (1) Suicidal ideation: Status: Acute (2) Depression: Status: Acute (3) Bipolar disorder: Status: Acute (4) Borderline personality disorder: Status: Acute (5) Amphetamine use disorder, severe: Status: Acute (6) Acute anxiety: Status: Acute (7) Alcohol use disorder, moderate, dependence: Status: Acute (8) Cannabis use disorder, severe, dependence: Status: Acute Plan This is a 36-year-old white female with a long history of mental health and addiction challenges who presents with active use/addiction reporting depression suicidal thoughts and inability to contract for safety outside the hospital open to medication changes. 1. Continue current medication. Initiated propranolol 20 mg p.o. 3 times daily as needed 2. Continue every 15 minute checks for safety. 3. Encourage individual, group and milieu therapies. 4. Encourage sober living treatment after discharge at the highest level of care to which he is willing to commit. Involuntary Hold Information 96 Hour Hold: 96 Hour Involuntary Admission: No Attestations NPU Medical Necessity Statement*: Inpatient hospitalization is medically necessary and the clinically appropriate intervention at this time. We will monitor medication to make changes as indicated. Likely length of stay 1-3 days. Coding Level of Care Code Acute Improvement Director for [facility] Fwd Diagnoses Suicidal ideation R45.851 Depression F32.A Bipolar disorder F31.9 Borderline personality disorder F60.3 Amphetamine use disorder, severe F15.20 Acute anxiety F41.9 Alcohol use disorder, moderate, dependence F10.20 Cannabis use disorder, severe, dependence F12.20
[2022-06-24] MEDS: OLANZapine 5 mg ODT PO (17:53)
[2022-06-24] MEDS: quetiapine 100 mg Tablet 200 MG PO (19:35)
[2022-06-24 21:16] VITALS: BP 115/78; PULSE 80; RESP 18; TEMP 36.5; O2SAT 97
[2022-06-25 06:00] VITALS: BP 112/81; PULSE 73; RESP 17; TEMP 36.8; O2SAT 95
[2022-06-25] MEDS: escitalopram 10 mg Tablet PO (09:44)
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
[2022-06-25 14:26] VITALS: BP 112/81; PULSE 73; RESP 17; TEMP 36.8; O2SAT 95
[2022-06-25] MEDS: hyDROXYzine 25 mg Capsule 50 MG PO (14:42)
[2022-06-25] MEDS: nicotine 2 mg Gum BUCCAL (14:42)
--- NOTE | 2022-06-25 14:44 | PC.NURSE ---
Patient at nurses station with c/o anxiety. Hydroxyzine 50 mg po given for this.
[2022-06-25 14:53] VITALS: BP 112/81; PULSE 73; RESP 17; TEMP 36.8; O2SAT 95
== END 2022-06-25 15:20 | disposition home or self-care (01) | DRG 885 ==
LOC: ER 05:12 → NP 16:45
PROVIDERS: Admitting Provider Psychiatry & Neurology Psychiatry; Emergency Provider Emergency Medicine; Visit Provider Psychiatry & Neurology Psychiatry
DX: F31.9 Bipolar disorder, unspecified (principal); R45.851 Suicidal ideations; F15.20 Other stimulant dependence, uncomplicated; F17.210 Nicotine dependence, cigarettes, uncomplicated; F60.3 Borderline personality disorder; F12.20 Cannabis dependence, uncomplicated; F10.20 Alcohol dependence, uncomplicated; F41.9 Anxiety disorder, unspecified; Z79.891 Long term (current) use of opiate analgesic
CPT/HCPCS: 80053; 80306; 80307; 81001; 81025; 85025; 97165; 99285

== ENCOUNTER 2022-10-20 09:40 | Emergency (ER) | payer MEDICAID, SELFPAY ==
[2022-10-20 09:45] VITALS: BP 124/90; PULSE 106; RESP 14; TEMP 36.9; O2SAT 95; BMI 32.8
--- NOTE | 2022-10-20 09:57 | W.ED.BACK ---
HPI - Back Pain/Injury General: Chief Complaint: Back Pain/Injury Stated Complaint: back pain Time Seen by Provider: 10/20/22 09:41 Source: patient Mode of arrival: ambulatory Limitations: no limitations History of Present Illness: Patient is a 37-year-old female presents to ED today with complaints of chronic lower back pain and pelvic pain. Patient tells me she has had pelvic pains ever since her tubal a year ago. She is requesting a test at this time. She is not having any vaginal discharge or abnormal vaginal bleeding. She states her back pain is her chronic back pain. Very quickly after my examination started she began requesting multiple different medications mainly Tramadol for her pain. She was quick to tell me (without prompting) that her UDS will be dirty but that it is because of her trazodone and quetiapine and that I am not using drugs . Her behavior points otherwise as she is fidgety, hyperactive and picking at facial sores. Patient does have a history of methamphetamine abuse. I was alerted by nursing staff that patient had mentioned being suicidal in triage however patient tells me that she only said that secondary to the pain she is currently having. She tells me repetitively she is not suicidal or homicidal. MD elicited complaint: back pain Pertinent past history: prior back pain Onset (ago): day(s) Timing: constant Similar Symptoms Previously: Yes Location: lumbar spine, right lower back and left lower back Radiation: none Exacerbating factors: movement Relieving factors: none Associated symptoms: Reports difficulty walking; Deny abdominal pain, chills, dysuria, fatigue, fever(s), hematuria, nausea, urinary urgency or vomiting Work related injury: No Review of Systems Const: Denies: fever(s), chills, body aches, fatigue or malaise Card: Denies: chest pain Resp: Denies: dyspnea GI: Denies: abdominal pain, nausea, vomiting or diarrhea : Reports: pelvic pain; Denies: flank pain, difficulty voiding, dysuria, urinary frequency, urinary urgency, urinary hesitancy, hematuria, genital lesions, genital pruritis, vaginal odor, vaginal bleeding, vaginal discharge or dyspareunia Musc: Reports: back pain (chronic); Denies: neck pain, extremity pain, extremity swelling, joint pain or joint swelling Skin/Breast: Denies: rash Neuro: Reports: difficulty walking; Denies: headache(s), numbness in extremities, weakness in extremities or sensory changes Psych: Reports: anxiety (chronic); Denies: visual hallucinations, auditory hallucinations, suicidal ideation or homicidal ideation [facility] ED PFSH: Medical History Major depressive disorder, recurrent severe without psychotic features Nicotine dependence, cigarettes, uncomplicated Psychiatric care Social History Smoking and tobacco status: current every day smoker cigarettes Packs smoked per day: 0.5 Years cigarettes smoked: 22 Quit status (tobacco): has tried quititng Number of times tried to quit tobacco: 3 Second hand smoke exposure: Yes Smoking risk assessment/counseling performed?: Yes Tobacco counseling given: counseling >3 minutes Female Reproductive History: Date of last menstrual period: 06/22/22 Physical Exam Const: COMMON NORMALS: no acute distress, patient oriented x3, no limitations and alert GENERAL APPEARANCE: cooperative NUTRITIONAL APPEARANCE: overweight ORIENTATION/CONSCIOUSNESS: Yes awake, Yes oriented to person, Yes oriented to place and Yes oriented to time HENMT: COMMON NORMALS: normocephalic and atraumatic HEAD & SCALP: normal to inspection, normocephalic and atraumatic Neck/C-Spine: COMMON NORMALS: full ROM, no lymphadenopathy and no meningeal signs Resp: COMMON NORMALS: normal respiratory effort and clear to auscultation bilaterally AUSCULTATION: clear to auscultation bilaterally Cardio: COMMON NORMALS: regular rate and regular rhythm RATE: regular rate RHYTHM: regular rhythm GI: COMMON NORMALS: Normal to inspection, nondistended, normoactive bowel sounds present, Soft to palpation, No hepatosplenomegaly present and no masses INSPECTION: Yes scar (previous section) AUSCULTATION: Yes normoactive bowel sounds PALPATION: Yes Soft to palpation, Yes Tenderness to palpation present (GI) (mild tenderness R pelvis; no McBurney's point tenderness), No Guarding due to palpation present (GI), No Rigid due to palpation and Yes No hepatosplenomegaly present : COMMON NORMALS: Yes no CVA tenderness BLADDER/KIDNEY EXAM: Yes no CVA tenderness Back/Pelvis: COMMON NORMALS: no CVA tenderness, thoracic and lumbar spine normal to inspection, no thoracic nor lumbar tenderness, thoraco-lumbar ROM normal and straight leg raise negative bilaterally THORACIC SPINE/UPPER BACK: Yes normal to inspection, Yes thoracic ROM normal, No thoracic spinal tenderness and No paraspinal muscle tenderness LUMBAR SPINE/LOWER BACK: Yes normal to inspection, Yes lumbar ROM normal, No lumbar spinal tenderness, Yes paraspinal muscle tenderness, No paraspinal muscle spasm and Yes straight leg raise negative bilaterally PELVIS: Yes buttocks normal SACROILIAC JOINTS: Yes SI joints normal SACRUM: no tenderness COCCYX: no tenderness Extremity: COMMON NORMALS: normal to inspection GENERAL: Yes normal exam except as noted Neuro: ANAYA COMA SCALE: document [facility] findings [place] coma scale eye opening: Spontaneous [place] coma scale verbal response: Orientated [place] coma scale motor response: Obey commands [place] coma scale total score: 15 COMMON NORMALS: patient oriented x3, CN's II-XII intact bilaterally, moves all extremities, no focal motor deficits, no sensory deficits noted and gait normal SENSORIUM/ORIENTATION: Yes alert, Yes oriented to person, Yes oriented to place and Yes oriented to time MENINGEAL SIGNS: Yes no meningeal signs GAIT: Yes Normal gait present MOTOR EXAM: 5/5 motor strength present throughout Skin: COMMON NORMALS: no rashes or lesions noted GENERAL SKIN EXAM: no rashes or lesions noted Course Vital Signs: Vital signs: Vital Signs Temperature 98.5 F 10/20/22 09:45 Pulse Rate 95 10/20/22 10:12 Respiratory Rate 14 10/20/22 09:45 Blood Pressure 125/90 10/20/22 10:12 Pulse Oximetry 99 10/20/22 10:12 Oxygen Delivery Me thod 10/20/22 09:45 MDM - Back Pain/Injury Medical Decision Making Patient here for chronic lower back pain and pelvic pain. She states she has had pelvic pain ever since her section a year ago. She did request a test. This was negative. She does not complain of vaginal discharge. She did have some mild right-sided pelvic pain on external palpation of her abdomen. Pelvic exam offered but patient declines. Patient's vital signs are stable. Lab work overall is non-concerning. She does have minor elevations to her LFTs that she has had previously. UA is contaminated but is negative for leuks/nitrites. During my initial assessment patient began requesting prescription for pain medications specifically Tramadol. During re-assessment she asks specifically for 7.5mg Hydrocodone. Highly suspect drug-seeking behavior. I explained to patient that not prescribe controlled pain occasions for chronic pain. There was some history of suicidal ideations that she expressed to the triage staff however patient is adamant she is not suicidal and just said that because of pain. She reports feeling better after IM Toradol and Norflex here. Patient will be discharged home to follow-up with her PCP. Return ED precautions given. Labs 10/20/22 10:58 10/20/22 10:58 Laboratory Results WBC 13.5 10^3/uL (4.0-10.0) H 10/20/22 10:58 RBC 5.51 10^6/uL (4.1-5.3) H 10/20/22 10:58 Hgb 13.7 g/dL (11.5-15.3) 10/20/22 10:58 Hct 43.8 % (37.0-47.0) 10/20/22 10:58 MCV 79.5 fl (81-99) L 10/20/22 10:58 MCH 24.9 pg (28.0-34.0) L 10/20/22 10:58 MCHC 31.3 g/dL (30.0-36.0) 10/20/22 10:58 RDW 16.5 % (12.1-15.1) H 10/20/22 10:58 Plt Count 584 10^3/cmm (130-400) H 10/20/22 10:58 MPV 8.6 fL (7.4-10.4) 10/20/22 10:58 Neut % (Auto) 65.0 % 10/20/22 10:58 Lymph % (Auto) 24.5 % 10/20/22 10:58 [place] % (Auto) 5.0 % 10/20/22 10:58 Eos % (Auto) 4.4 % 10/20/22 10:58 Baso % (Auto) 0.7 % 10/20/22 10:58 Neut # (Auto) 8.78 10^3/uL (1.8-7.7) H 10/20/22 10:58 Lymph # (Auto) 3.3 10^3/uL (0.8-4.8) 10/20/22 10:58 [place] # (Auto) 0.7 10^3/uL (0.2-0.9) 10/20/22 10:58 Eos # (Auto) 0.6 10^3/uL (0.0-0.8) 10/20/22 10:58 Baso # (Auto) 0.1 10^3/uL (0.0-0.1) 10/20/22 10:58 Nucleated RBC % (auto) 0 % 10/20/22 10:58 Nucleated RBCs # 0.0 /100WBC 10/20/22 10:58 Sodium 135 mmol/L (136-145) L 10/20/22 10:58 Potassium 3.7 mmol/L (3.5-5.1) 10/20/22 10:58 Chloride 97 mmol/L (98-107) L 10/20/22 10:58 Carbon Dioxide 26 mmol/L (22-29) 10/20/22 10:58 Anion Gap 15.7 (5-19) 10/20/22 10:58 BUN 17 mg/dL (6-20) 10/20/22 10:58 Creatinine 1.0 mg/dL (0.5-0.9) H 10/20/22 10:58 GFR Calculation 61.7 mL/min (90-130) L 10/20/22 10:58 Glucose 103 mg/dL (65-115) 10/20/22 10:58 Calculated Osmolality 282 mOsm/kg (285-295) L 10/20/22 10:58 Calcium 9.7 mg/dL (8.5-10.5) 10/20/22 10:58 Total Bilirubin 0.2 mg/dL (0.15-1.2) 10/20/22 10:58 AST 35 U/L (0-32) H 10/20/22 10:58 ALT 62 U/L (0-33) H 10/20/22 10:58 Alkaline Phosphatase 107 U/L (35-105) H 10/20/22 10:58 Total Protein 8.4 g/dL (6.6-8.7) 10/20/22 10:58 Albumin 4.6 g/dL (3.5-5.2) 10/20/22 10:58 Globulin 3.8 g/dL (1.3-4.6) 10/20/22 10:58 Urine Color Yellow (Yellow) 10/20/22 Unknown Urine Appearance Sl hazy (CLEAR) A 10/20/22 Unknown Urine pH 5 (5-7) 10/20/22 Unknown Ur Specific [place] 1.020 (1.005-1.030) 10/20/22 Unknown Urine Protein Neg (Negative) 10/20/22 Unknown Urine Glucose (UA) Norm (Normal) 10/20/22 Unknown Urine Ketones 1+ (Negative) H 10/20/22 Unknown Urine Blood 3+ (Negative) H 10/20/22 Unknown Urine Nitrate Negative (Negative) 10/20/22 Unknown Urine Bilirubin Not Reportable 10/20/22 Unknown Urine Urobilinogen 1 mg/dL (Negative) H 10/20/22 Unknown Ur Leukocyte Esterase Negative (Negative) 10/20/22 Unknown Urine RBC 5-10 /hpf (0-2) H 10/20/22 Unknown Urine WBC 0-4 /hpf (0-5) H 10/20/22 Unknown Ur Squamous Epith Cells 15-25 /hpf (0-5) H 10/20/22 Unknown Amorphous Sediment Not Reportable 10/20/22 Unknown Urine Bacteria 2+ /hpf (NONE) H 10/20/22 Unknown Urine HCG, Qual Negative (Negative) 10/20/22 Unknown Discharge Plan Discharge Patient Disposition: Home Clinical Impression: Chronic back pain Condition: Stable Prescriptions: New diclofenac sodium 50 mg tablet,delayed release (DR/EC) 50 mg PO Q12H PRN (Reason: pain) Qty: 20 0RF No Action escitalopram oxalate 10 mg tablet 10 mg PO DAILY 30 Days Qty: 30 1RF hydroxyzine pamoate 25 mg capsule 25 mg PO QID PRN (Reason: Anxiety) 30 Days Qty: 120 1RF olanzapine 5 mg tablet,disintegrating 5 mg PO DAILY PRN (Reason: Agitation/Psychosis) 30 Days Qty: 30 1RF quetiapine 100 mg tablet 200 mg PO BEDTIME 30 Days Qty: 60 1RF trazodone 50 mg tablet 50 mg PO BEDTIME PRN (Reason: Sleep) 30 Days Qty: 30 1RF Discharge Orders: Discharge ED (Routine); Ordered 10/20/22 Ordered By: Lizz He Patient Instructions: Opioid Safety, Pain Management Coding Level of Care Code ED Internal Grinder Tender for Chg Fwd Exam Comprehensive
[2022-10-20 10:12] VITALS: BP 125/90; PULSE 95; O2SAT 99
[2022-10-20 10:33] LABS: Add Urine Microscopic? YES; Blood Urine 3+ (Negative); Glucose Urine UA Norm (Normal); Ketones Urine 1+ (Negative); Leukocyte Esterase Urine Negative (Negative); Nitrate Urine Negative (Negative); Protein Urine Neg (Negative); Urine Appearance SL Hazy (CLEAR); Urine Color Yellow (Yellow); Urobilinogen Urine 1 mg/dL (Negative); pH Urine 5 (5-7)
[2022-10-20 10:34] LABS: Add Urine Culture? No; Bacteria Urine 2+ /hpf; Squamous Epithelial Cell Urine 15-25 /hpf (0-5); WBC Urine 0-4 /hpf (0-5)
[2022-10-20] MEDS: ketorolac 60 mg/2 mL INJ IM (10:34)
[2022-10-20] MEDS: orphenadrine 30 mg/mL Inj 2 mL 60 MG IM (10:35)
[2022-10-20 11:06] LABS: Basophils # 0.1 10^3/uL (0.0-0.1); Basophils % 0.7 %; Eosinophils # 0.6 10^3/uL (0.0-0.8); Eosinophils % 4.4 %; Hematocrit 43.8 % (37.0-47.0); Hemoglobin 13.7 g/dL (11.5-15.3); Lymphocytes # 3.3 10^3/uL (0.8-4.8); Lymphocytes % 24.5 %; Mean Corpuscular HGB Conc 31.3 g/dL (30.0-36.0); Mean Corpuscular Hemoglobin 24.9 pg (28.0-34.0); Mean Corpuscular Volume 79.5 fl (81-99); Mean Platelet Volume 8.6 fL (7.4-10.4); Monocytes # 0.7 10^3/uL (0.2-0.9); Neutrophils # 8.78 10^3/uL (1.8-7.7); Nucleated Red Blood Cells % 0 %; Platelet Count 584 10^3/cmm (130-400); Red Blood Count 5.51 10^6/uL (4.1-5.3); Red Cell Distribution Width 16.5 % (12.1-15.1); White Blood Count 13.5 10^3/uL (4.0-10.0)
[2022-10-20 11:32] LABS: Alanine Aminotransferase 62 U/L (0-33); Albumin Level 4.6 g/dL (3.5-5.2); Alkaline Phosphatase 107 U/L (35-105); Anion Gap 15.7 (5-19); Aspartate Amino Transferase 35 U/L (0-32); Blood Urea Nitrogen 17 mg/dL (6-20); Calcium 9.7 mg/dL (8.5-10.5); Carbon Dioxide 26 mmol/L (22-29); Chloride 97 mmol/L (98-107); Globulin 3.8 g/dL (1.3-4.6); Glomerular Filtration Rate 61.7 mL/min (90-130); Glucose 103 mg/dL (65-115); Osmolality Calculated 282 mOsm/kg (285-295); Potassium 3.7 mmol/L (3.5-5.1); Sodium 135 mmol/L (136-145); Total Bilirubin 0.2 mg/dL (0.15-1.2); Total Protein 8.4 g/dL (6.6-8.7)
[2022-10-20] MEDS: acetaminophen 500 mg Tablet 1000 MG PO (12:03)
== END 2022-10-20 12:05 | disposition home or self-care (01) ==
PROVIDERS: Emergency Provider Physician Assistant
DX: G89.29 Other chronic pain (principal); M54.9 Dorsalgia, unspecified; F17.210 Nicotine dependence, cigarettes, uncomplicated
CPT/HCPCS: 36415; 80053; 81001; 81025; 85025; 96372; 99284; J1885; J2360

== ENCOUNTER 2023-01-19 17:03 | Inpatient (IN) | payer MEDICAID, SELFPAY ==
[2023-01-19 17:12] VITALS: BP 132/80; PULSE 95; RESP 19; TEMP 36.7; O2SAT 96; BMI 35.2
--- NOTE | 2023-01-19 17:12 | ED.C_ITS ---
HPI - Psych General: Chief Complaint: Psychiatric Symptoms Stated Complaint: SI, Anxiety, and Depression Time Seen by Provider: 01/19/23 17:11 History of Present Illness: Ms. Rai is a 37-year-old lady with history of major depression, other psychiatric disorder, history of substance abuse presenting to the emergency department due to depression with suicidal ideation. She reports compliance with her medication regimen however despite this has had worsening symptoms for 2 to 3 weeks. She denies actual suicide attempt or specific method. She endorses medical concern of chronic back pain however this been going on since 2004 has not changed. Overall course of psychiatric symptoms is worsened. Intensity is moderate to severe. She feels increased anxiety as well. No other specific changes in health, exacerbating, or alleviating factors identified. Onset (ago): week(s) Duration: getting worse History of same: Yes Associated psychiatric symptoms: depression, suicidal ideation and other Review of Systems 2 General: Reports: 10 or more systems reviewed and unremarkable except in HPI and below PFSH ED PFSH: Medical History Major depressive disorder, recurrent severe without psychotic features Nicotine dependence, cigarettes, uncomplicated Psychiatric care Social History Smoking and tobacco status: current every day smoker cigarettes Packs smoked per day: 0.5 Years cigarettes smoked: 22 Quit status (tobacco): has tried quititng Number of times tried to quit tobacco: 3 Second hand smoke exposure: Yes Smoking risk assessment/counseling performed?: Yes Tobacco counseling given: counseling >3 minutes Physical Exam Const: COMMON NORMALS: alert GENERAL APPEARANCE: cooperative and well developed HENMT: COMMON NORMALS: normocephalic and atraumatic HEAD & SCALP: normocephalic and atraumatic Eye: COMMON NORMALS: conjunctivae normal CONJUNCTIVA: Yes conjunctivae normal SCLERA: sclerae normal Neck/C-Spine: COMMON NORMALS: supple GENERAL: Yes trachea midline Resp: COMMON NORMALS: clear to auscultation bilaterally EFFORT & INSPECTION: Yes able to speak in complete sentences AUSCULTATION: clear to auscultation bilaterally Cardio: COMMON NORMALS: regular rate and regular rhythm RATE: regular rate RHYTHM: regular rhythm GI: COMMON NORMALS: Soft to palpation PALPATION: Yes Soft to palpation and No Tenderness to palpation present (GI) Extremity: GENERAL: Yes normal exam except as noted and No edema Neuro: COMMON NORMALS: moves all extremities SENSORIUM/ORIENTATION: Yes alert and No Orientation impaired Psych: COMMON NORMALS: mental status grossly normal and Normal thought process present THOUGHT PROCESS: Normal thought process present Course Vital Signs: Vital signs: Vital Signs Temperature 97.8 F 01/22/23 14:33 Pulse Rate 60 01/22/23 14:33 Respiratory Rate 18 01/22/23 14:33 Blood Pressure 124/84 01/22/23 14:33 Pulse Oximetry 98 01/22/23 14:33 Oxygen Delivery Me thod 01/21/23 14:00 MDM - Psych Medical Decision Making 37-year-old lady with psychiatric history presenting to the emergency department for worsening psychiatric symptoms. Exam as above. Patient is calm, cooperative, nontoxic. Labs demonstrate no significant hematologic or metabolic abnormality with exception of minimal leukocytosis which is nonspecific in this patient. Elevated AST improved. Urine drug screen and toxic ingestions are negative with exception of positive amphetamines and THC. Given physical exam and clinical history provided there is no indication for imaging at this time. Based on ED evaluation at this point there is no obvious condition that would preclude the patient from inpatient management of psychiatric concerns/symptoms. The results of ED evaluation were discussed with the patient including plan for admission due to requirement for level of care not available if discharged to [facility] significant worsening/deterioration. Patient agreeable with plan. Discussed with psychiatry service who was agreeable to admit patient. Medical Records I reviewed the patient's medical records. Lab Data I reviewed the patient's lab results. 01/19/23 17:50 01/19/23 17:50 Laboratory Results WBC 11.6 10^3/uL (4.0-10.0) H 01/19/23 17:50 RBC 5.25 10^6/uL (4.1-5.3) 01/19/23 17:50 Hgb 12.8 g/dL (11.5-15.3) 01/19/23 17:50 Hct 41.4 % (37.0-47.0) 01/19/23 17:50 MCV 78.9 fl (81-99) L 01/19/23 17:50 MCH 24.4 pg (28.0-34.0) L 01/19/23 17:50 MCHC 30.9 g/dL (30.0-36.0) 01/19/23 17:50 RDW 17.3 % (12.1-15.1) H 01/19/23 17:50 Plt Count 579 10^3/cmm (130-400) H 01/19/23 17:50 MPV 8.4 fL (7.4-10.4) 01/19/23 17:50 Neut % (Auto) 58.6 % 01/19/23 17:50 Lymph % (Auto) 30.3 % 01/19/23 17:50 [place] % (Auto) 5.9 % 01/19/23 17:50 Eos % (Auto) 4.0 % 01/19/23 17:50 Baso % (Auto) 0.9 % 01/19/23 17:50 Neut # (Auto) 6.82 10^3/uL (1.8-7.7) 01/19/23 17:50 Lymph # (Auto) 3.5 10^3/uL (0.8-4.8) 01/19/23 17:50 [place] # (Auto) 0.7 10^3/uL (0.2-0.9) 01/19/23 17:50 Eos # (Auto) 0.5 10^3/uL (0.0-0.8) 01/19/23 17:50 Baso # (Auto) 0.1 10^3/uL (0.0-0.1) 01/19/23 17:50 Nucleated RBC % (auto) 0 % 01/19/23 17:50 Nucleated RBCs # 0.0 /100WBC 01/19/23 17:50 Sodium 143 mmol/L (136-145) 01/19/23 17:50 Potassium 4.3 mmol/L (3.5-5.1) 01/19/23 17:50 Chloride 104 mmol/L (98-107) 01/19/23 17:50 Carbon Dioxide 29 mmol/L (22-29) 01/19/23 17:50 Anion Gap 14.3 (5-19) 01/19/23 17:50 BUN 7 mg/dL (6-20) 01/19/23 17:50 Creatinine 0.8 mg/dL (0.5-0.9) 01/19/23 17:50 GFR Calculation 79.9 mL/min (90-130) L 01/19/23 17:50 Glucose 84 mg/dL (65-115) 01/19/23 17:50 Calculated Osmolality 293 mOsm/kg (285-295) 01/19/23 17:50 Calcium 9.5 mg/dL (8.5-10.5) 01/19/23 17:50 Total Bilirubin 0.2 mg/dL (0.15-1.2) 01/19/23 17:50 AST 25 U/L (0-32) 01/19/23 17:50 ALT 34 U/L (0-33) H 01/19/23 17:50 Alkaline Phosphatase 91 U/L (35-105) 01/19/23 17:50 Total Protein 7.5 g/dL (6.6-8.7) 01/19/23 17:50 Albumin 4.3 g/dL (3.5-5.2) 01/19/23 17:50 Globulin 3.2 g/dL (1.3-4.6) 01/19/23 17:50 HCG, Qual Negative (Negative) 01/19/23 17:49 Salicylates 0.6 mg/dL (3-10) L 01/19/23 17:50 Urine Opiates Screen Negative ng/mL (Negative) 01/19/23 17:49 Acetaminophen < 5.0 ug/mL (10-30) L 01/19/23 17:50 Ur Barbiturates Screen Negative ng/mL (Negative) 01/19/23 17:49 Ur Phencyclidine Scrn Negative ng/mL (Negative) 01/19/23 17:49 Ur Amphetamines Screen Positive ng/mL (Negative) H 01/19/23 17:49 U Benzodiazepines Scrn Negative ng/mL (Negative) 01/19/23 17:49 Urine Cocaine Screen Negative ng/mL (Negative) 01/19/23 17:49 U Marijuana (THC) Screen Positive ng/mL (Negative) H 01/19/23 17:49 Ethyl Alcohol < 10 mg/dL (0-10) 01/19/23 17:50 Discharge Plan Discharge Patient Disposition: Admitted As Inpatient Admit Provider: Arash Salinas Clinical Impression: Suicidal ideation, Acute anxiety Condition: Stable Discharge Diet: Advance as tolerated Discharge Activity: Resume usual activity Coding Level of Care Code ED Multimedia Authoring Specialist for Joseline Cisneros
[2023-01-19] MEDS: ketorolac 30 mg/mL INJ IM (17:41)
[2023-01-19] MEDS: LORazepam 0.5 mg Tablet PO (17:42)
[2023-01-19 17:49] VITALS: O2SAT 98
[2023-01-19 18:02] LABS: Basophils # 0.1 10^3/uL (0.0-0.1); Basophils % 0.9 %; Eosinophils # 0.5 10^3/uL (0.0-0.8); Hematocrit 41.4 % (37.0-47.0); Hemoglobin 12.8 g/dL (11.5-15.3); Lymphocytes # 3.5 10^3/uL (0.8-4.8); Lymphocytes % 30.3 %; Mean Corpuscular HGB Conc 30.9 g/dL (30.0-36.0); Mean Corpuscular Hemoglobin 24.4 pg (28.0-34.0); Mean Corpuscular Volume 78.9 fl (81-99); Mean Platelet Volume 8.4 fL (7.4-10.4); Monocytes # 0.7 10^3/uL (0.2-0.9); Monocytes % 5.9 %; Neutrophils # 6.82 10^3/uL (1.8-7.7); Neutrophils % 58.6 %; Nucleated Red Blood Cells % 0 %; Platelet Count 579 10^3/cmm (130-400); Red Blood Count 5.25 10^6/uL (4.1-5.3); Red Cell Distribution Width 17.3 % (12.1-15.1); White Blood Count 11.6 10^3/uL (4.0-10.0)
[2023-01-19 18:10] LABS: HCG Qualitative Urine. Negative (Negative)
[2023-01-19 18:25] LABS: Alanine Aminotransferase 34 U/L (0-33); Albumin Level 4.3 g/dL (3.5-5.2); Alkaline Phosphatase 91 U/L (35-105); Anion Gap 14.3 (5-19); Aspartate Amino Transferase 25 U/L (0-32); Blood Urea Nitrogen 7 mg/dL (6-20); Calcium 9.5 mg/dL (8.5-10.5); Carbon Dioxide 29 mmol/L (22-29); Chloride 104 mmol/L (98-107); Globulin 3.2 g/dL (1.3-4.6); Glomerular Filtration Rate 79.9 mL/min (90-130); Glucose 84 mg/dL (65-115); Osmolality Calculated 293 mOsm/kg (285-295); Potassium 4.3 mmol/L (3.5-5.1); Salicylate 0.6 mg/dL (3-10); Sodium 143 mmol/L (136-145); Total Bilirubin 0.2 mg/dL (0.15-1.2); Total Protein 7.5 g/dL (6.6-8.7)
[2023-01-19 18:26] LABS: Acetaminophen < 5.0 ug/mL (10-30); Alcohol Level < 10 mg/dL (0-10)
[2023-01-19 18:42] LABS: Amphetamines Screen Urine Positive (Negative); Barbiturates Screen Urine Negative (Negative); Benzodiazepines Screen Urine Negative (Negative); Cocaine Screen Urine Negative (Negative); Opiate Screen Urine Negative (Negative); PCP Screen Urine Negative (Negative); THC Screen Urine Positive (Negative)
--- NOTE | 2023-01-19 19:32 | PC.NURSE ---
PT PROVIDED WITH A SNACK. NO C/O AT THIS TIME.
[2023-01-19 19:54] VITALS: BP 115/80; PULSE 87; RESP 16; O2SAT 100
[2023-01-19 20:04] VITALS: BP 119/81; PULSE 83; RESP 22; TEMP 36.4; O2SAT 100
[2023-01-19] MEDS: trazodone 50 mg Tablet PO ×2 (20:37→21:51)
[2023-01-19] MEDS: hyDROXYzine 25 mg Capsule PO (20:37)
[2023-01-19] MEDS: quetiapine 100 mg Tablet 200 MG PO (20:37)
--- NOTE | 2023-01-19 20:40 | PC.NURSE ---
PRN trazodone given for sleep and vistaril given for anxiety as ordered per pt request.
[2023-01-19 21:17] VITALS: BP 119/81; PULSE 83; RESP 22; TEMP 36.4; O2SAT 100
--- NOTE | 2023-01-19 21:55 | PC.NURSE ---
PRN trazodone for sleep was given as ordered per pt request.
[2023-01-19] MEDS: loperamide 2 mg Capsule PO (23:07)
--- NOTE | 2023-01-19 23:09 | PC.NURSE ---
PRN imodium given for diarrhea per pt request.
[2023-01-20 06:00] VITALS: BP 116/73; PULSE 73; RESP 16; TEMP 36.6; O2SAT 95
[2023-01-20] MEDS: escitalopram 10 mg Tablet PO (08:34)
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
[2023-01-20] MEDS: hyDROXYzine 25 mg Capsule 50 MG PO ×2 (13:21→20:21)
[2023-01-20 14:00] VITALS: BP 107/77; PULSE 91; RESP 18; TEMP 36.4; O2SAT 97
[2023-01-20] MEDS: OLANZapine 5 mg ODT PO (18:09)
[2023-01-20] MEDS: quetiapine 100 mg Tablet 200 MG PO (20:21)
[2023-01-20 20:27] VITALS: BP 111/71; PULSE 78; RESP 18; TEMP 36.6; O2SAT 98
--- NOTE | 2023-01-20 20:30 | PC.NURSE ---
PRN vistaril was given as ordered per pt request.
[2023-01-21 06:00] VITALS: BP 118/79; PULSE 88; RESP 18; TEMP 37; O2SAT 98
[2023-01-21] MEDS: escitalopram 10 mg Tablet PO (08:25)
[2023-01-21] MEDS: hyDROXYzine 25 mg Capsule 50 MG PO ×2 (11:51→17:52)
[2023-01-21 14:00] VITALS: BP 126/86; PULSE 83; RESP 16; TEMP 36.6; O2SAT 99
--- NOTE | 2023-01-21 14:35 | P.NPUPN_ITS ---
Subjective NPU Subjective: The patient is a 37-year-old white female with borderline personality disorder suicidal ideation methamphetamine use and depression who was admitted with increased agitation and more intense suicidal thoughts. She had minimized having used methamphetamine despite showing up positive for amphe tamines on the urine drug screen. She had reported feeling better. She had reported some back pain and muscle spasms and requested a muscle relaxant. She had been somewhat cooperative on the milieu and redirectable. She had been able to attend groups. She had reported some difficulties with sleep continuity disruption. She reported an extended history of having mood swings and stated that she frequently struggled with managing her depressed mood. She had endorsed chronic feelings of hopelessness and stated that she often struggled with feelings of loneliness and abandonment. Mental Status Exam MSE Comments: She is alert and oriented person place time and situation. Her hygiene is poor. There was no evidence of any abnormal involuntary motor movements tics or tremors appreciated. Her speech was normal in regards to rate rhythm volume and prosody. She had fair eye contact. There was some mild psychomotor retardation appreciated. Her mood was described as down. Her affect was mood congruent and restricted in range. Her thought processes linear, logical and goal-directed. Her thought content showed no evidence of homicidal ideation. She did endorse suicidal ideation with no plan or intent noted. She did not appear to be responding to internal stimuli. There was no evidence of any delusional thinking. Her recent and remote memory appeared grossly intact. Her insight was poor. Her judgment is poor. Her impulse control appeared limited. Vitals/I&O/Wt Last Vital Signs Temp 98 F 01/21/23 14:00 Pulse 83 01/21/23 14:00 Resp 16 01/21/23 14:00 BP 126/86 01/21/23 14:00 Pulse Ox 99 01/21/23 14:00 O2 Del Method 01/21/23 14:00 Weight last 48 hrs Weight 102.058 kg Data NPU 01/19/23 17:50 01/19/23 17:50 A&P Assessment and plan (1) Amphetamine use disorder, severe: (2) Suicidal ideation: (3) Major depressive disorder: Plan This is a 37-year-old female admitted with suicidal ideation with a history of psychosis and increased irritability and depression that appears to be exacerbated by substance use. The patient is denying any substance use but was positive for amphetamines and this is likely exacerbated her current situation. #1. Increase Seroquel 300mg at night. 2. Encourage sober living treatment at the highest level possible both here and on outpatient basis 3. Therapeutic observation 15-minute checks on the unit. #4. Engage patient in individual milieu and group therapy. Involuntary Hold Information 96 Hour Hold: 96 Hour Involuntary Admission: No Attestations NPU Medical Necessity Statement*: Inpatient hospitalization is medically necessary and deemed to be clinically appropriate at this time. We will monitor and change medications as indicated. Patient will be hospitalized for over 2 midnights with a likely length of stay of 2-3 days. Coding Level of Care Code Acute Code for [facility] Diagnoses Amphetamine use disorder, severe F15.20 Suicidal ideation R45.851 Major depressive disorder F32.9
[2023-01-21] MEDS: cyclobenzaprine 10 mg Tablet 5 MG PO ×2 (15:28→19:55)
[2023-01-21] MEDS: trazodone 50 mg Tablet PO (19:54)
[2023-01-21] MEDS: quetiapine 100 mg Tablet 300 MG PO (19:54)
--- NOTE | 2023-01-21 20:00 | PC.NURSE ---
PRN trazodone given for sleep as ordered per pt request.
[2023-01-21 21:14] VITALS: BP 133/85; PULSE 72; RESP 16; TEMP 36.8; O2SAT 98
[2023-01-22 06:00] VITALS: BP 124/84; PULSE 60; RESP 18; TEMP 36.6; O2SAT 98
[2023-01-22] MEDS: escitalopram 10 mg Tablet PO (07:57)
[2023-01-22] MEDS: OLANZapine 5 mg ODT 2.5 MG PO (07:57)
[2023-01-22] MEDS: cyclobenzaprine 10 mg Tablet 5 MG PO ×2 (07:58→14:14)
--- NOTE | 2023-01-22 08:23 | PC.NURSE ---
PT IN BED RESTING. DENIES SI/HI AND AVH AT THIS TIME. PT DENIES PAIN. PT DOES REPORT SHE DID NOT SLEEP WELL LAST NIGHT. PT WAS INFORMED TO LET NURSES KNOW WHEN SHE IS UNABLE TO SLEEP AND THEY CAN GIVE HER SOMETHING TO SLEEP. PT STATED OH I DIDN'T KNOW THAT. ALL QUESTIONS ANSWERED AND SUPPORT WAS VOICED.
[2023-01-22] MEDS: hyDROXYzine 25 mg Capsule PO (13:08)
--- NOTE | 2023-01-22 13:10 | PC.NURSE ---
PT WAS GIVEN 25 MG OF VISTAIL ORDERED FOR INCREASED SYMPTOMS OF ANXIETY.
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
[2023-01-22 14:33] VITALS: BP 124/84; PULSE 60; RESP 18; TEMP 36.6; O2SAT 98
== END 2023-01-22 15:20 | disposition home or self-care (01) | DRG 881 ==
LOC: ER 18:09 → NP 18:25
PROVIDERS: Emergency Medicine; Admitting Provider Psychiatry & Neurology Psychiatry; Emergency Provider Emergency Medicine; Visit Provider Psychiatry & Neurology Psychiatry
DX: F32.9 Major depressive disorder, single episode, unspecified (principal); F15.20 Other stimulant dependence, uncomplicated; R45.851 Suicidal ideations; F17.210 Nicotine dependence, cigarettes, uncomplicated; F60.3 Borderline personality disorder
CPT/HCPCS: 80053; 80306; 80307; 81025; 85025; 96372; 97165; 99238; 99285; J1885

== ENCOUNTER → 2023-02-05 13:19 | Outpatient (BNVA) | payer MEDICAID, SELFPAY | PROVIDERS: Visit Provider Nurse Practitioner | DX: Z79.899 Other long term (current) drug therapy (principal); F12.20 Cannabis dependence, uncomplicated; F10.20 Alcohol dependence, uncomplicated; F60.3 Borderline personality disorder; F15.20 Other stimulant dependence, uncomplicated; F33.2 Major depressive disorder, recurrent severe without psychotic features; F17.210 Nicotine dependence, cigarettes, uncomplicated | CPT/HCPCS: 80061; 83036 ==

== ENCOUNTER 2023-03-20 19:32 | Inpatient (IN) | payer MEDICAID, SELFPAY ==
[2023-03-20 19:32] VITALS: BP 129/78; PULSE 82; RESP 16; TEMP 36.8; O2SAT 99; BMI 34.4
--- NOTE | 2023-03-20 19:37 | W.ED.ALCOHOL ---
HPI - Alcohol General: Stated Complaint: MHE Time Seen by Provider: 03/20/23 19:35 PFSH ED PFSH: Medical History Major depressive disorder, recurrent severe without psychotic features Nicotine dependence, cigarettes, uncomplicated Psychiatric care Social History Smoking and tobacco status: current every day smoker cigarettes Packs smoked per day: 0.5 Years cigarettes smoked: 22 Quit status (tobacco): has tried quititng Number of times tried to quit tobacco: 3 Second hand smoke exposure: Yes Smoking risk assessment/counseling performed?: Yes Tobacco counseling given: counseling >3 minutes Discharge Plan Discharge Condition: Stable Prescriptions: No Action quetiapine 100 mg tablet 300 mg PO BEDTIME 30 Days Qty: 90 2RF hydroxyzine pamoate 25 mg capsule 25 mg PO QID PRN (Reason: Anxiety) 30 Days Qty: 120 2RF olanzapine 5 mg tablet,disintegrating See Rx Instructions .ROUTE .COMPLEX Qty: 30 1RF Dose Instruction: TAKE 1 TABLET BY MOUTH EVERY DAY NEEDED FOR AGITATION/PSYCHOSIS Rx Instructions: TAKE 1 TABLET BY MOUTH EVERY DAY NEEDED FOR AGITATION/PSYCHOSIS trazodone 50 mg tablet See Rx Instructions .ROUTE .COMPLEX Qty: 30 1RF Dose Instruction: TAKE 1 TABLET BY MOUTH EVERY DAY AT BEDTIME NEEDED FOR SLEEP Rx Instructions: TAKE 1 TABLET BY MOUTH EVERY DAY AT BEDTIME NEEDED FOR SLEEP escitalopram oxalate 10 mg tablet See Rx Instructions .ROUTE .COMPLEX Qty: 30 1RF Dose Instruction: TAKE 1 TABLET BY MOUTH EVERY DAY Rx Instructions: TAKE 1 TABLET BY MOUTH EVERY DAY cyclobenzaprine 10 mg Tablet 5 mg PO TID 30 Days Qty: 45 1RF Coding Level of Care Code ED Book [employer] for [employer]
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
[2023-03-20 20:11] LABS: Basophils # 0.1 10^3/uL (0.0-0.1); Basophils % 0.5 %; Eosinophils # 0.4 10^3/uL (0.0-0.8); Eosinophils % 3.8 %; Hematocrit 37.1 % (37.0-47.0); Hemoglobin 11.6 g/dL (11.5-15.3); Lymphocytes # 4.1 10^3/uL (0.8-4.8); Lymphocytes % 38.1 %; Mean Corpuscular HGB Conc 31.3 g/dL (30.0-36.0); Mean Corpuscular Hemoglobin 24.9 pg (28.0-34.0); Mean Corpuscular Volume 79.6 fl (81-99); Mean Platelet Volume 8.6 fL (7.4-10.4); Monocytes # 0.6 10^3/uL (0.2-0.9); Monocytes % 5.1 %; Neutrophils # 5.63 10^3/uL (1.8-7.7); Neutrophils % 52.2 %; Nucleated Red Blood Cells % 0 %; Platelet Count 503 10^3/cmm (130-400); Red Blood Count 4.66 10^6/uL (4.1-5.3); Red Cell Distribution Width 18.2 % (12.1-15.1); White Blood Count 10.8 10^3/uL (4.0-10.0)
[2023-03-20 20:24] LABS: Amphetamines Screen Urine Positive (Negative); Barbiturates Screen Urine Negative (Negative); Benzodiazepines Screen Urine Negative (Negative); Cocaine Screen Urine Negative (Negative); Opiate Screen Urine Negative (Negative); PCP Screen Urine Negative (Negative); THC Screen Urine Positive (Negative)
[2023-03-20 20:29] LABS: HCG Qualitative Urine. Negative (Negative)
[2023-03-20 20:41] LABS: Bilirubin Urine 1+ (Negative); Blood Urine 3+ (Negative); Glucose Urine UA Norm (Normal); Nitrate Urine Negative (Negative); Protein Urine 2+ (Negative); Specific Gravity, Urine 1.025 (1.005-1.030); Urine Appearance Hazy (CLEAR); Urine Color Red (Yellow); Urobilinogen Urine 4 mg/dL (Negative); pH Urine 6 (5-7)
[2023-03-20 20:42] LABS: Add Urine Microscopic? YES; Bacteria Urine TRACE /hpf; Ketones Urine 1+ (Negative); Leukocyte Esterase Urine 2+ (Negative); Mucus Urine TRACE /hpf; Squamous Epithelial Cell Urine 0-4 /hpf (0-5); WBC Urine 15-25 /hpf (0-5)
[2023-03-20 20:43] LABS: Add Urine Culture? Yes; RBC Urine >100 /hpf (0-2)
[2023-03-20 20:44] LABS: Alanine Aminotransferase 37 U/L (0-33); Alkaline Phosphatase 79 U/L (35-105); Aspartate Amino Transferase 29 U/L (0-32); Blood Urea Nitrogen 10 mg/dL (6-20); Calcium 9.6 mg/dL (8.5-10.5); Carbon Dioxide 28 mmol/L (22-29); Chloride 102 mmol/L (98-107); Glomerular Filtration Rate 79.9 mL/min (90-130); Glucose 90 mg/dL (65-115); Osmolality Calculated 289 mOsm/kg (285-295); Sodium 140 mmol/L (136-145); Thyroid Stimulating Hormone 1.23 uIU/mL (0.27-4.20); Total Bilirubin 0.2 mg/dL (0.15-1.2)
[2023-03-20 20:46] LABS: Acetaminophen < 5.0 ug/mL (10-30); Alcohol Level < 10 mg/dL (0-10); Salicylate < 0.3 mg/dL (3-10)
[2023-03-20] MEDS: hyDROXYzine 25 mg Capsule PO (20:59)
[2023-03-20] MEDS: acetaminophen 500 mg Tablet 1000 MG PO (20:59)
[2023-03-20 21:01] VITALS: BP 134/76; PULSE 83; RESP 18; O2SAT 100
--- NOTE | 2023-03-20 21:13 | PC.NURSE ---
Pr report given to Amanda on NPU at this time.
[2023-03-20 22:03] VITALS: BP 116/76; PULSE 96; RESP 16; TEMP 36.3; O2SAT 97
[2023-03-20] MEDS: quetiapine 300 mg Tablet PO (22:52)
--- NOTE | 2023-03-21 04:36 | PC.NURSE ---
Patient brought home medications in medication bottles as follows: Trazodone mg x26 Escitalopram 10mg x26 Quetiapine 100mg x80 Olanzapine 5mg x26 Hydroxyzine 25mg x58 Cyclobenzaprine 5mg x46 (3 tablets different from the others, but confirmed same medication) The above medications are in the Pyxis & yellow form placed in patient's chart & in from of her belongings tub.
[2023-03-21 06:00] VITALS: RESP 17
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
[2023-03-21] MEDS: escitalopram 10 mg Tablet PO (08:23)
[2023-03-21] MEDS: hyDROXYzine 25 mg Capsule 50 MG PO (13:17)
[2023-03-21 14:00] VITALS: RESP 17
[2023-03-21 15:14] LABS: Add Urine Microscopic? YES; Bilirubin Urine Neg (Negative); Blood Urine 3+ (Negative); Glucose Urine UA Norm (Normal); Ketones Urine Negative (Negative); Leukocyte Esterase Urine 1+ (Negative); Nitrate Urine Negative (Negative); Protein Urine 3+ (Negative); Urine Appearance Turbid (CLEAR); Urine Color Red (Yellow); Urobilinogen Urine Neg (Negative); pH Urine 6 (5-7)
[2023-03-21 15:15] LABS: Amorphous Sediment Urine 1+ /hpf; Bacteria Urine 2+ /hpf; Mucus Urine TRACE /hpf; RBC Urine TOO NUMEROUS TO CNT /hpf (0-2)
[2023-03-21 15:16] LABS: Add Urine Culture? Yes
[2023-03-21] MEDS: OLANZapine 5 mg ODT PO (17:56)
[2023-03-21] MEDS: trazodone 50 mg Tablet PO (21:18)
[2023-03-21] MEDS: quetiapine 300 mg Tablet PO (21:18)
[2023-03-21 22:00] VITALS: RESP 17
[2023-03-22 06:00] VITALS: RESP 17
[2023-03-22] MEDS: escitalopram 10 mg Tablet PO (08:30)
[2023-03-22] MEDS: hyDROXYzine 25 mg Capsule 50 MG PO ×2 (12:25→18:15)
[2023-03-22] MEDS: acetaminophen 325 mg Tablet 650 MG PO ×3 (12:27→21:08)
[2023-03-22 14:00] VITALS: BP 132/85; PULSE 76; RESP 18; TEMP 36.7; O2SAT 98
[2023-03-22] MEDS: loperamide 2 mg Capsule PO (17:01)
[2023-03-22] MEDS: OLANZapine 5 mg ODT PO (17:01)
[2023-03-22] MEDS: nicotine 2 mg Gum BUCCAL ×2 (17:20→21:08)
--- NOTE | 2023-03-22 17:30 | W.PM.NPUPNS ---
Subjective NPU Subjective: Patient presented today continuing to be fairly isolative and laying in her bed much of the day. She talked about some of the things she would like to work on but once again very much downplayed her addiction and we discussed that her current presentation is consistent with recovering from methamphetamine abuse. She acknowledges that that is an issue but continues to be very ambivalent about talking about it or addressing it. We talked about discharge at the beginning of the week. Mental Status Exam MSE Comments: This is an obese 36-year-old female with limited grooming and eye contact.? She was wearing hospital scrubs with no abnormal movements except for significant psychomotor retardation. Somewhat cooperative with exam in mild distress. Speech was decreased rate and volume.? Mood described as anxious and depressed, affect congruent and subdued. ? Thought process was linear and organized.? Thought content: Patient endorsed suicidal?ideation? but no homicidal ideation, there were no delusions reported or noted. She did not appear to be responding to internal stimuli. Attention and concentration were limited and memory appeared somewhat reliable but none were formally tested. She was alert and oriented x3. Insight and judgment appeared limited, impulse control appeared impaired. Vitals/I&O/Wt Last Vital Signs Temp 97.6 F 03/22/23 22:00 Pulse 74 03/22/23 22:00 Resp 18 03/22/23 22:00 BP 135/87 03/22/23 22:00 Pulse Ox 99 03/22/23 22:00 O2 Del Method Room Air 03/22/23 22:00 Weight last 48 hrs Weight 103.328 kg Data NPU 03/20/23 20:03 03/20/23 20:03 Micro: Microbiology 03/20/23 19:50 Urine Culture - Preliminary Urine,Clean Catch Gram Negative Rods Microbiology 03/20/23 19:50 Urine,Clean Catch Urine Culture - Preliminary Gram Negative Rods A&P Assessment and plan (1) Amphetamine use disorder, severe: (2) Suicidal ideation: (3) Major depressive disorder: (4) Suicidal ideation: (5) Depression: (6) Bipolar disorder: (7) Borderline personality disorder: (8) Acute anxiety: (9) Alcohol use disorder, moderate, dependence: (10) Cannabis use disorder, severe, dependence: Plan This is a 37-year-old female with a long history of mental health and addiction challenges who presents with active use/addiction reporting depression, suicidal thoughts and inability to contract for safety outside the hospital open to medication changes. 1. Continue current medication. Increased Vistaril to 50 mg p.o. 4 times daily. 2. Continue every 15 minute checks for safety. 3. Encourage individual, group and milieu therapies. 4. Encourage sober living treatment after discharge at the highest level of care to which he is willing to commit. Involuntary Hold Information 96 Hour Hold: 96 Hour Involuntary Admission: No Attestations NPU Medical Necessity Statement*: Inpatient hospitalization is medically necessary and the clinically appropriate intervention at this time. We will monitor medication to make changes as indicated. Likely length of stay 2-4 days. Coding Level of Care Code Acute Code for [facility] Fwd Diagnoses Amphetamine use disorder, severe F15.20 Suicidal ideation R45.851 Major depressive disorder F32.9 Depression F32.A Bipolar disorder F31.9 Borderline personality disorder F60.3 Acute anxiety F41.9 Alcohol use disorder, moderate, dependence F10.20 Cannabis use disorder, severe, dependence F12.20
[2023-03-22] MEDS: quetiapine 300 mg Tablet PO (21:08)
[2023-03-22] MEDS: trazodone 50 mg Tablet PO (21:08)
[2023-03-22 22:00] VITALS: BP 135/87; PULSE 74; RESP 18; TEMP 36.4; O2SAT 99
[2023-03-23] MEDS: hyDROXYzine 25 mg Capsule 50 MG PO ×2 (08:09→14:46)
[2023-03-23] MEDS: nicotine 2 mg Gum BUCCAL ×4 (08:10→22:30)
[2023-03-23] MEDS: escitalopram 10 mg Tablet PO (08:10)
--- NOTE | 2023-03-23 08:34 | P.NPUPN_ITS ---
Subjective NPU Subjective: Patient presented today continuing to spend most of her time in bed. She identified that this is secondary to anxiety but we did discuss the likelihood that her drug use is also at play and the significant role her being in withdrawal is having on her isolation. She reports that she is using the Vistaril and it is helping. She denies any other issues. Mental Status Exam MSE Comments: This is an obese 36-year-old female with limited grooming and eye contact.? She was wearing hospital scrubs with no abnormal movements except for significant psychomotor retardation. Somewhat cooperative with exam in mild distress. Speech was decreased rate and volume.? Mood described as anxious and depressed, affect congruent and subdued. ? Thought process was linear and organized.? Thought content: Patient endorsed suicidal?ideation? but no homicidal ideation, there were no delusions reported or noted. She did not appear to be responding to internal stimuli. Attention and concentration were limited and memory appeared somewhat reliable but none were formally tested. She was alert and oriented x3. Insight and judgment appeared limited, impulse control appeared impaired. Vitals/I&O/Wt Last Vital Signs Temp 97.6 F 03/22/23 22:00 Pulse 74 03/22/23 22:00 Resp 18 03/22/23 22:00 BP 135/87 03/22/23 22:00 Pulse Ox 99 03/22/23 22:00 O2 Del Method Room Air 03/22/23 22:00 Weight last 48 hrs Weight 103.328 kg Data NPU 03/20/23 20:03 03/20/23 20:03 Micro: Microbiology 03/20/23 19:50 Urine Culture - Preliminary Urine,Clean Catch Gram Negative Rods Microbiology 03/20/23 19:50 Urine,Clean Catch Urine Culture - Preliminary Gram Negative Rods A&P Assessment and plan (1) Amphetamine use disorder, severe: (2) Suicidal ideation: (3) Major depressive disorder: (4) Suicidal ideation: (5) Depression: (6) Bipolar disorder: (7) Borderline personality disorder: (8) Acute anxiety: (9) Alcohol use disorder, moderate, dependence: (10) Cannabis use disorder, severe, dependence: Plan This is a 37-year-old female with a long history of mental health and addiction challenges who presents with active use/addiction reporting depression, suicidal thoughts and inability to contract for safety outside the hospital open to medication changes. 1. Continue current medication. Increased Vistaril to 50 mg p.o. 4 times daily. 2. Continue every 15 minute checks for safety. 3. Encourage individual, group and milieu therapies. 4. Encourage sober living treatment after discharge at the highest level of ca re to which she is willing to commit. Involuntary Hold Information 96 Hour Hold: 96 Hour Involuntary Admission: No Attestations NPU Medical Necessity Statement*: Inpatient hospitalization is medically necessary and the clinically appropriate intervention at this time. We will monitor medication to make changes as indicated. Likely length of stay 1-3 days. Coding Level of Care Code Acute Code for g Fwd Diagnoses Amphetamine use disorder, severe F15.20 Suicidal ideation R45.851 Major depressive disorder F32.9 Depression F32.A Bipolar disorder F31.9 Borderline personality disorder F60.3 Acute anxiety F41.9 Alcohol use disorder, moderate, dependence F10.20 Cannabis use disorder, severe, dependence F12.20
[2023-03-23] MEDS: OLANZapine 5 mg ODT PO ×2 (13:10→19:24)
[2023-03-23 14:00] VITALS: BP 118/79; PULSE 93; RESP 18; TEMP 36.8; O2SAT 100
[2023-03-23] MEDS: acetaminophen 325 mg Tablet 650 MG PO (14:06)
--- NOTE | 2023-03-23 15:06 | PC.NURSE ---
Pt is requesting to speak to [employer] about possible rehab options that are available. Pt is also concerned about not having any clothing when she leaves here.
[2023-03-23] MEDS: haloperidol 5 mg Tablet PO (17:12)
[2023-03-23] MEDS: loperamide 2 mg Capsule PO (19:24)
[2023-03-23] MEDS: ondansetron 4 MG Tablet PO (19:24)
[2023-03-23 20:20] VITALS: BP 138/87; PULSE 74; RESP 18; TEMP 36.3; O2SAT 96
[2023-03-23] MEDS: ciprofloxacin 500 mg Tablet PO (20:41)
[2023-03-23] MEDS: quetiapine 300 mg Tablet PO (20:41)
[2023-03-23] MEDS: trazodone 50 mg Tablet PO (20:47)
[2023-03-24] MEDS: ciprofloxacin 500 mg Tablet PO (08:31)
[2023-03-24] MEDS: escitalopram 10 mg Tablet PO (08:31)
[2023-03-24] MEDS: hyDROXYzine 25 mg Capsule 50 MG PO (12:06)
[2023-03-24 14:00] VITALS: BP 130/73; PULSE 86; RESP 18; TEMP 36.8; O2SAT 96
[2023-03-24 14:36] VITALS: BP 138/87; PULSE 74; RESP 18; TEMP 36.3; O2SAT 96
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
--- NOTE | 2023-03-24 15:31 | PC.NURSE ---
discharge written instuction discussed and left with patient. pt states understanding and compliance. pt left amblutory to the [facility].
== END 2023-03-24 15:32 | disposition home or self-care (01) | DRG 885 ==
LOC: ER 20:48 → NP 20:54
PROVIDERS: Admitting Provider Psychiatry & Neurology Psychiatry; Emergency Provider Emergency Medicine; Visit Provider Psychiatry & Neurology Psychiatry
DX: F33.2 Major depressive disorder, recurrent severe without psychotic features (principal); F15.20 Other stimulant dependence, uncomplicated; R45.851 Suicidal ideations; F41.9 Anxiety disorder, unspecified; F12.20 Cannabis dependence, uncomplicated; G89.29 Other chronic pain; M54.9 Dorsalgia, unspecified; F17.210 Nicotine dependence, cigarettes, uncomplicated; F60.3 Borderline personality disorder; F10.20 Alcohol dependence, uncomplicated
CPT/HCPCS: 72100; 80053; 80306; 80307; 81001; 81025; 84443; 85025; 87077; 87086; 87186; 97165; 99238; 99285; Q0162

== ENCOUNTER 2023-04-13 13:17 | Emergency (ER) | payer MEDICAID, SELFPAY ==
[2023-04-13 13:22] VITALS: BP 125/90; PULSE 93; RESP 18; TEMP 36.4; O2SAT 100; BMI 32.1
--- NOTE | 2023-04-13 13:38 | PC.NURSE ---
Pt was placed in pysch room with a sitter, sitter dressed the pt out
[2023-04-13 13:44] LABS: Basophils # 0.1 10^3/uL (0.0-0.1); Basophils % 0.9 %; Eosinophils # 0.3 10^3/uL (0.0-0.8); Eosinophils % 3.6 %; Hematocrit 40.2 % (37.0-47.0); Hemoglobin 12.6 g/dL (11.5-15.3); Lymphocytes # 3.2 10^3/uL (0.8-4.8); Lymphocytes % 35.9 %; Mean Corpuscular HGB Conc 31.3 g/dL (30.0-36.0); Mean Corpuscular Hemoglobin 25.2 pg (28.0-34.0); Mean Corpuscular Volume 80.4 fl (81-99); Mean Platelet Volume 8.9 fL (7.4-10.4); Monocytes # 0.5 10^3/uL (0.2-0.9); Monocytes % 5.5 %; Neutrophils # 4.77 10^3/uL (1.8-7.7); Nucleated Red Blood Cells % 0 %; Platelet Count 427 10^3/cmm (130-400); Red Cell Distribution Width 17.6 % (12.1-15.1); White Blood Count 8.9 10^3/uL (4.0-10.0)
--- NOTE | 2023-04-13 13:46 | ED_ITS ---
HPI - Anxiety General: Chief Complaint: Anxiety Stated Complaint: anxiety Time Seen by Provider: 04/13/23 13:33 History of Present Illness: Just gottenPresents to the ER with complaints of thoughts of self-harm and suicide. Patient does not have a plan. Patient says has been off her medicine for approximately month worse over the last 3 to 4 days. Patient says she is homeless and looking to get a place to live. Onset (ago): day(s) (3 to 4 days ago) History of similar episodes: Yes Provoking factors: other (Medicine noncompliance) Relieving factors: nothing Exacerbating factors: nothing Associated symptoms: Reports no associated symptoms Review of Systems General: Reports: 10 or more systems reviewed and unremarkable except in HPI and below PFSH ED PFSH: Medical History Major depressive disorder, recurrent severe without psychotic features Nicotine dependence, cigarettes, uncomplicated Psychiatric care Social History Smoking and tobacco status: current every day smoker cigarettes Packs smoked per day: 0.5 Years cigarettes smoked: 22 Quit status (tobacco): has tried quititng Number of times tried to quit tobacco: 3 Second hand smoke exposure: Yes Smoking risk assessment/counseling performed?: Yes Tobacco counseling given: counseling >3 minutes Physical Exam Const: COMMON NORMALS: no acute distress, average body habitus, patient o riented x3, no limitations, healthy appearing, alert and well nourished HENMT: COMMON NORMALS: normocephalic, atraumatic, hearing grossly normal b ilaterally, external ears normal, Normal external nose present and moist oral mucous membranes HEAD & SCALP: normocephalic and atraumatic NOSE: Normal external nose present EXTERNAL EAR: Yes external ears normal Neck/C-Spine: COMMON NORMALS: no JVD Chest: COMMONS NORMALS: normal inspection of the chest and normal palpation of entire chest wall Resp: COMMON NORMALS: normal respiratory effort, No retractions, No use of accessory muscles and clear to auscultation bilaterally AUSCULTATION: clear to auscultation bilaterally Cardio: COMMON NORMALS: no JVD, regular rate, regular rhythm, S1 normal heart sound present, S2 normal heart sound present, No gallops present (Cardio), No clicks present (Cardio), No murmurs present (Cardio) and No rub (Cardio) RATE: regular rate RHYTHM: regular rhythm HEART SOUNDS: S1 normal heart sound present and S2 normal heart sound present GI: COMMON NORMALS: Normal to inspection, nondistended, normoactive bowel sounds present, Soft to palpation, non-tender, No hepatosplenomegaly present and no masses PALPATION: Yes Soft to palpation and Yes No hepatosplenomegaly present Neuro: COMMON NORMALS: patient oriented x3 SENSORIUM/ORIENTATION: Yes alert Psych: COMMON NORMALS: mental status grossly normal, Normal thought process present, cooperative and speech normal ATTITUDE: Yes calm ACTIVITY/MOTOR BEHAVIOR: Yes appropriate eye contact SPEECH: Yes normal speech MOOD & AFFECT: Yes euthymic mood THOUGHT PROCESS: Normal thought process present THOUGHT CONTENT: Yes Suicidality present Course Vital Signs: Vital signs: Vital Signs Temperature 97.6 F 04/13/23 13:22 Pulse Rate 93 04/13/23 13:22 Respiratory Rate 18 04/13/23 13:22 Blood Pressure 125/90 04/13/23 13:22 Pulse Oximetry 100 04/13/23 13:22 Oxygen Delivery Me thod Room Air 04/13/23 13:22 MDM - Anxiety Medical Decision Making Patient presents to the ER with suicidal ideation and thoughts of self-harm. Patient is homeless. Patient is medically noncompliant. Patient does not want to be admitted voluntarily to get everything back on track. Dr. Ortiz in [place] accepted in transfer.. Differential Diagnosis Unlikely hyperventilation, panic disorder or acute anxiety Medical Records I reviewed the patient's medical records. Lab Data I reviewed the patient's lab results. 04/13/23 13:38 04/13/23 13:38 Laboratory Results WBC 8.9 10^3/uL (4.0-10.0) 04/13/23 13:38 RBC 5.00 10^6/uL (4.1-5.3) 04/13/23 13:38 Hgb 12.6 g/dL (11.5-15.3) 04/13/23 13:38 Hct 40.2 % (37.0-47.0) 04/13/23 13:38 MCV 80.4 fl (81-99) L 04/13/23 13:38 MCH 25.2 pg (28.0-34.0) L 04/13/23 13:38 MCHC 31.3 g/dL (30.0-36.0) 04/13/23 13:38 RDW 17.6 % (12.1-15.1) H 04/13/23 13:38 Plt Count 427 10^3/cmm (130-400) H 04/13/23 13:38 MPV 8.9 fL (7.4-10.4) 04/13/23 13:38 Neut % (Auto) 54.0 % 04/13/23 13:38 Lymph % (Auto) 35.9 % 04/13/23 13:38 Coleman % (Auto) 5.5 % 04/13/23 13:38 Eos % (Auto) 3.6 % 04/13/23 13:38 Baso % (Auto) 0.9 % 04/13/23 13:38 Neut # (Auto) 4.77 10^3/uL (1.8-7.7) 04/13/23 13:38 Lymph # (Auto) 3.2 10^3/uL (0.8-4.8) 04/13/23 13:38 Coleman # (Auto) 0.5 10^3/uL (0.2-0.9) 04/13/23 13:38 Eos # (Auto) 0.3 10^3/uL (0.0-0.8) 04/13/23 13:38 Baso # (Auto) 0.1 10^3/uL (0.0-0.1) 04/13/23 13:38 Nucleated RBC % (auto) 0 % 04/13/23 13:38 Nucleated RBCs # 0.0 /100WBC 04/13/23 13:38 Sodium 138 mmol/L (136-145) 04/13/23 13:38 Potassium 3.9 mmol/L (3.5-5.1) 04/13/23 13:38 Chloride 102 mmol/L (98-107) 04/13/23 13:38 Carbon Dioxide 27 mmol/L (22-29) 04/13/23 13:38 Anion Gap 12.9 (5-19) 04/13/23 13:38 BUN 6 mg/dL (6-20) 04/13/23 13:38 Creatinine 0.6 mg/dL (0.5-0.9) 04/13/23 13:38 GFR Calculation 111.3 mL/min (90-130) 04/13/23 13:38 Glucose 147 mg/dL (65-115) H 04/13/23 13:38 Calculated Osmolality 286 mOsm/kg (285-295) 04/13/23 13:38 Calcium 9.7 mg/dL (8.5-10.5) 04/13/23 13:38 Total Bilirubin 0.2 mg/dL (0.15-1.2) 04/13/23 13:38 AST 28 U/L (0-32) 04/13/23 13:38 ALT 38 U/L (0-33) H 04/13/23 13:38 Alkaline Phosphatase 96 U/L (35-105) 04/13/23 13:38 Total Protein 7.4 g/dL (6.6-8.7) 04/13/23 13:38 Albumin 4.3 g/dL (3.5-5.2) 04/13/23 13:38 Globulin 3.1 g/dL (1.3-4.6) 04/13/23 13:38 HCG, Qual Negative (Negative) 04/13/23 13:54 Urine Color Dark yellow (Yellow) 04/13/23 13:54 Urine Appearance Sl hazy (CLEAR) A 04/13/23 13:54 Urine pH 6 (5-7) 04/13/23 13:54 Ur Specific [place] 1.020 (1.005-1.030) 04/13/23 13:54 Urine Protein Neg (Negative) 04/13/23 13:54 Urine Glucose (UA) Norm (Normal) 04/13/23 13:54 Urine Ketones Negative (Negative) 04/13/23 13:54 Urine Blood Neg (Negative) 04/13/23 13:54 Urine Nitrate Negative (Negative) 04/13/23 13:54 Urine Bilirubin 1+ (Negative) H 04/13/23 13:54 Urine Urobilinogen 1 mg/dL (Negative) H 04/13/23 13:54 Ur Leukocyte Esterase Trace (Negative) H 04/13/23 13:54 Urine RBC None /hpf (0-2) 04/13/23 13:54 Urine WBC 5-10 /hpf (0-5) H 04/13/23 13:54 Ur Squamous Epith Cells 5-10 /hpf (0-5) H 04/13/23 13:54 Calcium Oxalate Crystal 5-10 /hpf H 04/13/23 13:54 Amorphous Sediment Not Reportable 04/13/23 13:54 Urine Bacteria 1+ /hpf (NONE) H 04/13/23 13:54 Urine Mucus Trace /hpf 04/13/23 13:54 Salicylates < 0.3 mg/dL (3-10) L 04/13/23 13:38 Urine Opiates Screen Negative ng/mL (Negative) 04/13/23 13:54 Acetaminophen < 5.0 ug/mL (10-30) L 04/13/23 13:38 Ur Barbiturates Screen Negative ng/mL (Negative) 04/13/23 13:54 Ur Phencyclidine Scrn Negative ng/mL (Negative) 04/13/23 13:54 Ur Amphetamines Screen Positive ng/mL (Negative) H 04/13/23 13:54 U Benzodiazepines Scrn Negative ng/mL (Negative) 04/13/23 13:54 Urine Cocaine Screen Negative ng/mL (Negative) 04/13/23 13:54 U Marijuana (THC) Screen Positive ng/mL (Negative) H 04/13/23 13:54 Ethyl Alcohol < 10 mg/dL (0-10) 04/13/23 13:38 SARS-CoV-2 Ag (Rapid) negative (Negative) 04/13/23 15:21 Discharge Plan Discharge Patient Disposition: Xfer Psychiatric Hosp Clinical Impression: Amphetamine use disorder, severe, Suicidal ideation Major depressive disorder Qualifiers: Major depression recurrence: recurrent Active/Remission status: currently active Major depression episode severity: moderate Qualified Code(s): F33.1 - Major depressive disorder, recurrent, moderate Condition: Stable Coding Level of Care Code ED As400 Operator for Joseline Cisneros
[2023-04-13] MEDS: hyDROXYzine 25 mg Capsule 50 MG PO (13:52)
--- NOTE | 2023-04-13 13:57 | PC.PHAR ---
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
[2023-04-13 14:06] LABS: HCG Qualitative Urine. Negative (Negative)
[2023-04-13 14:11] LABS: Amphetamines Screen Urine Positive (Negative); Barbiturates Screen Urine Negative (Negative); Benzodiazepines Screen Urine Negative (Negative); Cocaine Screen Urine Negative (Negative); Opiate Screen Urine Negative (Negative); PCP Screen Urine Negative (Negative); THC Screen Urine Positive (Negative)
[2023-04-13 14:17] LABS: Alanine Aminotransferase 38 U/L (0-33); Albumin Level 4.3 g/dL (3.5-5.2); Alkaline Phosphatase 96 U/L (35-105); Anion Gap 12.9 (5-19); Aspartate Amino Transferase 28 U/L (0-32); Blood Urea Nitrogen 6 mg/dL (6-20); Calcium 9.7 mg/dL (8.5-10.5); Carbon Dioxide 27 mmol/L (22-29); Chloride 102 mmol/L (98-107); Globulin 3.1 g/dL (1.3-4.6); Glomerular Filtration Rate 111.3 mL/min (90-130); Glucose 147 mg/dL (65-115); Osmolality Calculated 286 mOsm/kg (285-295); Potassium 3.9 mmol/L (3.5-5.1); Sodium 138 mmol/L (136-145); Total Bilirubin 0.2 mg/dL (0.15-1.2); Total Protein 7.4 g/dL (6.6-8.7)
[2023-04-13 14:22] LABS: Add Urine Culture? No; Add Urine Microscopic? YES; Bacteria Urine 1+ /hpf; Bilirubin Urine 1+ (Negative); Blood Urine Neg (Negative); Glucose Urine UA Norm (Normal); Ketones Urine Negative (Negative); Leukocyte Esterase Urine Trace (Negative); Mucus Urine TRACE /hpf; Nitrate Urine Negative (Negative); Protein Urine Neg (Negative); Urine Appearance SL Hazy (CLEAR); Urine Color Dark Yellow (Yellow); Urobilinogen Urine 1 mg/dL (Negative); pH Urine 6 (5-7)
[2023-04-13 14:23] LABS: Acetaminophen < 5.0 ug/mL (10-30); Alcohol Level < 10 mg/dL (0-10); Salicylate < 0.3 mg/dL (3-10)
[2023-04-13 15:44] LABS: SARS Covid-2 Antigen negative (Negative)
[2023-04-13 17:13] VITALS: BP 125/90; PULSE 93; RESP 18; TEMP 36.4; O2SAT 100
--- NOTE | 2023-04-16 14:07 | DCPLANNER ---
adult family home program manager called patient due to no primary care physician - no answer at this time - a voicemail was left for patient to return nurse outreach case manager phone call.
== END 2023-04-13 17:14 ==
PROVIDERS: Emergency Provider Emergency Medicine
DX: R45.851 Suicidal ideations (principal); F15.90 Other stimulant use, unspecified, uncomplicated; F32.9 Major depressive disorder, single episode, unspecified
CPT/HCPCS: 36415; 80053; 80306; 80307; 81001; 81025; 85025; 87426; 99283

== ENCOUNTER 2023-05-09 07:48 | Inpatient (IN) | payer MEDICAID, SELFPAY ==
[2023-05-09 07:53] VITALS: BP 140/93; PULSE 91; RESP 18; TEMP 36.9; O2SAT 97; BMI 33.5
[2023-05-09 08:16] VITALS: BP 140/93; PULSE 91; RESP 18; O2SAT 97
--- NOTE | 2023-05-09 08:18 | W.ED.PSYCHS ---
Documented by User: MARS Aparicio 05/09/23 09:38 HPI - Psych General: Chief Complaint: Psychiatric Symptoms Stated Complaint: PSCYH EVAL Time Seen by Provider: 05/09/23 08:02 History of Present Illness: Patient is a 37-year-old female who comes to the ED with SI. Patient has a past medical history of bipolar and depression. She is having increased thoughts of suicide over the last couple weeks and is having trouble sleeping. She denies having any plan for suicide. Denies any HI, auditory or visual hallucinations. She has not been taking any of her medications for the past 3 weeks because she does not have the money to fill the prescriptions. Patient states that the address she is currently living at does not have any air conditioning. denies any recent drug and alcohol use. Associated symptoms: Reports suicidal ideation; Deny auditory hallucinations, visual hallucinations or homicidal ideation Review of Systems Const: Denies: fever(s), chills or fatigue Eyes: Denies: change in vision or eye discomfort ENMT: Denies: throat pain, odynophagia, nasal discharge or nasal congestion Card: Denies: chest pain, palpitations, edema, swelling of feet/ankles, dyspnea on exertion or orthopnea Resp: Denies: dyspnea, productive cough or non-productive cough GI: Denies: abdominal pain, nausea, vomiting, diarrhea, constipation or hematochezia : Denies: flank pain, dysuria or hematuria Musc: Denies: neck pain, back pain or extremity swelling Skin/Breast: Denies: rash or new lesions Neuro: Denies: headache(s), numbness in extremities or weakness in extremities Psych: Reports: sleeping less and suicidal ideation; Denies: visual hallucinations, auditory hallucinations or homicidal ideation [facility] ED PFSH: Medical History Bipolar disorder Depression Major depressive disorder, recurrent severe without psychotic features Nicotine dependence, cigarettes, uncomplicated Psychiatric care Social History Smoking and tobacco status: current every day smoker cigarettes Packs smoked per day: 0.5 Years cigarettes smoked: 22 Quit status (tobacco): has tried quititng Number of times tried to quit tobacco: 3 Second hand smoke exposure: Yes Smoking risk assessment/counseling performed?: Yes Tobacco counseling given: counseling >3 minutes Physical Exam Const: COMMON NORMALS: no acute distress, patient oriented x3 and alert HENMT: COMMON NORMALS: normocephalic HEAD & SCALP: normocephalic MOUTH: Normal oral and palatal mucosa present THROAT: posterior oropharynx normal and uvula midline Neck/C-Spine: COMMON NORMALS: supple GENERAL: Yes normal visual inspection Resp: COMMON NORMALS: normal respiratory effort, No retractions, No use of accessory muscles and clear to auscultation bilaterally AUSCULTATION: clear to auscultation bilaterally Cardio: COMMON NORMALS: regular rate, regular rhythm, S1 normal heart sound present, S2 normal heart sound present, No gallops present (Cardio), No clicks present (Cardio), No murmurs present (Cardio) and Peripheral pulses 2+ throughout RATE: regular rate RHYTHM: regular rhythm HEART SOUNDS: S1 normal heart sound present and S2 normal heart sound present PERIPHERAL PULSES: Peripheral pulses 2+ throughout GI: COMMON NORMALS: Normal to inspection, nondistended, normoactive bowel sounds present, Soft to palpation, non-tender and no masses PALPATION: Yes Soft to palpation : COMMON NORMALS: Yes no CVA tenderness BLADDER/KIDNEY EXAM: Yes no CVA tenderness Back/Pelvis: COMMON NORMALS: no CVA tenderness Extremity: COMMON NORMALS: normal to inspection Neuro: COMMON NORMALS: patient oriented x3 SENSORIUM/ORIENTATION: Yes alert GAIT: Yes Normal gait present Psych: COMMON NORMALS: speech normal APPEARANCE: Yes grossly normal ACTIVITY/MOTOR BEHAVIOR: Yes Avoids eye contact (attititude/behavior) SPEECH: Yes normal speech MOOD & AFFECT: Yes Flat affect present THOUGHT CONTENT: Yes Suicidality present, No Homicidality present and No Hallucination(s) present Skin: GENERAL SKIN EXAM: dry skin Course Vital Signs: Vital signs: Vital Signs Temperature 98.5 F 05/09/23 07:53 Pulse Rate 91 05/09/23 08:16 Respiratory Rate 18 05/09/23 08:16 Blood Pressure 140/93 05/09/23 08:16 Pulse Oximetry 97 05/09/23 08:16 Oxygen Delivery Me thod Room Air 05/09/23 08:16 MDM - Psych Medical Decision Making Patient is a 37-year-old female who comes to the ED with SI. Patient has a past medical history of bipolar and depression. Patient says she has not been taking any of her medications for approximately 3 weeks because she cannot afford them. Vitals are stable. Patient appears nontoxic in no acute distress or pain. Exam is benign. Psych prescreening labs completed and urine drug screen did come back positive for marijuana and amphetamines. I contacted Dr. Oleary and told him about patient case and he agrees to have patient admitted to the N[facility]. Dr. Licona was told about patient and he will be placing the admitting orders. Lab Data I reviewed the patient's lab results. 05/09/23 08:22 05/09/23 08:22 Laboratory Results WBC 10.5 10^3/uL (4.0-10.0) H 05/09/23 08:22 RBC 5.21 10^6/uL (4.1-5.3) 05/09/23 08:22 Hgb 12.9 g/dL (11.5-15.3) 05/09/23 08:22 Hct 41.2 % (37.0-47.0) 05/09/23 08:22 MCV 79.1 fl (81-99) L 05/09/23 08:22 MCH 24.8 pg (28.0-34.0) L 05/09/23 08:22 MCHC 31.3 g/dL (30.0-36.0) 05/09/23 08:22 RDW 17.3 % (12.1-15.1) H 05/09/23 08:22 Plt Count 506 10^3/cmm (130-400) H 05/09/23 08:22 MPV 8.4 fL (7.4-10.4) 05/09/23 08:22 Neut % (Auto) 62.0 % 05/09/23 08:22 Lymph % (Auto) 28.0 % 05/09/23 08:22 Sanders % (Auto) 5.4 % 05/09/23 08:22 Eos % (Auto) 3.7 % 05/09/23 08:22 Baso % (Auto) 0.5 % 05/09/23 08:22 Neut # (Auto) 6.48 10^3/uL (1.8-7.7) 05/09/23 08:22 Lymph # (Auto) 2.9 10^3/uL (0.8-4.8) 05/09/23 08:22 Sanders # (Auto) 0.6 10^3/uL (0.2-0.9) 05/09/23 08:22 Eos # (Auto) 0.4 10^3/uL (0.0-0.8) 05/09/23 08:22 Baso # (Auto) 0.1 10^3/uL (0.0-0.1) 05/09/23 08:22 Nucleated RBC % (auto) 0 % 05/09/23 08:22 Nucleated RBCs # 0.0 /100WBC 05/09/23 08:22 Sodium 137 mmol/L (136-145) 05/09/23 08:22 Potassium 3.6 mmol/L (3.5-5.1) 05/09/23 08:22 Chloride 100 mmol/L (98-107) 05/09/23 08:22 Carbon Dioxide 24 mmol/L (22-29) 05/09/23 08:22 Anion Gap 16.6 (5-19) 05/09/23 08:22 BUN 11 mg/dL (6-20) 05/09/23 08:22 Creatinine 0.8 mg/dL (0.5-0.9) 05/09/23 08:22 GFR Calculation 79.9 mL/min (90-130) L 05/09/23 08:22 Glucose 120 mg/dL (65-115) H 05/09/23 08:22 Calculated Osmolality 285 mOsm/kg (285-295) 05/09/23 08:22 Calcium 9.3 mg/dL (8.5-10.5) 05/09/23 08:22 Total Bilirubin 0.5 mg/dL (0.15-1.2) 05/09/23 08:22 AST 43 U/L (0-32) H 05/09/23 08:22 ALT 67 U/L (0-33) H 05/09/23 08:22 Alkaline Phosphatase 83 U/L (35-105) 05/09/23 08:22 Total Protein 7.6 g/dL (6.6-8.7) 05/09/23 08:22 Albumin 4.3 g/dL (3.5-5.2) 05/09/23 08:22 Globulin 3.3 g/dL (1.3-4.6) 05/09/23 08:22 HCG, Qual Negative (Negative) 05/09/23 08:22 Urine Color Yellow (Yellow) 05/09/23 08:30 Urine Appearance Cloudy (CLEAR) A 05/09/23 08:30 Urine pH 5 (5-7) 05/09/23 08:30 Ur Specific [place] 1.025 (1.005-1.030) 05/09/23 08:30 Urine Protein Trace (Negative) 05/09/23 08:30 Urine Glucose (UA) Norm (Normal) 05/09/23 08:30 Urine Ketones 2+ (Negative) H 05/09/23 08:30 Urine Blood Neg (Negative) 05/09/23 08:30 Urine Nitrate Negative (Negative) 05/09/23 08:30 Urine Bilirubin Neg (Negative) 05/09/23 08:30 Urine Urobilinogen 1 mg/dL (Negative) H 05/09/23 08:30 Ur Leukocyte Esterase Trace (Negative) H 05/09/23 08:30 Urine RBC None /hpf (0-2) 05/09/23 08:30 Urine WBC 5-10 /hpf (0-5) H 05/09/23 08:30 Ur Squamous Epith Cells 40-55 /hpf (0-5) H 05/09/23 08:30 Amorphous Sediment Not Reportable 05/09/23 08:30 Urine Bacteria 3+ /hpf (NONE) H 05/09/23 08:30 Salicylates < 0.3 mg/dL (3-10) L 05/09/23 08:22 Urine Opiates Screen Negative ng/mL (Negative) 05/09/23 08:30 Acetaminophen < 5.0 ug/mL (10-30) L 05/09/23 08:22 Ur Barbiturates Screen Negative ng/mL (Negative) 05/09/23 08:30 Ur Phencyclidine Scrn Negative ng/mL (Negative) 05/09/23 08:30 Ur Amphetamines Screen Positive ng/mL (Negative) H 05/09/23 08:30 U Benzodiazepines Scrn Negative ng/mL (Negative) 05/09/23 08:30 Urine Cocaine Screen Negative ng/mL (Negative) 05/09/23 08:30 U Marijuana (THC) Screen Positive ng/mL (Negative) H 05/09/23 08:30 Ethyl Alcohol < 10 mg/dL (0-10) 05/09/23 08:22 Discharge Plan Discharge Patient Disposition: Admitted As Inpatient Admit Provider: Arash Salinas Clinical Impression: Suicidal ideation Condition: Stable 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 [employer] Fwd Documented by User: Yunior Licona DO 05/09/23 12:20 HPI - Psych General: Chief Complaint: Psychiatric Symptoms Stated Complaint: PSCYH EVAL Time Seen by Provider: 05/09/23 08:02 [facility] ED PFSH: Medical History Bipolar disorder Depression Major depressive disorder, recurrent severe without psychotic features Nicotine dependence, cigarettes, uncomplicated Psychiatric care Social History Smoking and tobacco status: current every day smoker cigarettes Packs smoked per day: 0.5 Years cigarettes smoked: 22 Quit status (tobacco): has tried quititng Number of times tried to quit tobacco: 3 Second hand smoke exposure: Yes Smoking risk assessment/counseling performed?: Yes Tobacco counseling given: counseling >3 minutes Course Vital Signs: Vital signs: Vital Signs Temperature 98.5 F 05/09/23 07:53 Pulse Rate 91 05/09/23 08:16 Respiratory Rate 18 05/09/23 08:16 Blood Pressure 140/93 05/09/23 08:16 Pulse Oximetry 97 05/09/23 08:16 Oxygen Delivery Me thod Room Air 05/09/23 08:16 MDM - Psych Medical Decision Making Patient is a 37-year-old female who comes to the ED with SI. Patient has a past medical history of bipolar and depression. Patient says she has not been taking any of her medications for approximately 3 weeks because she cannot afford them. Vitals are stable. Patient appears nontoxic in no acute distress or pain. Exam is benign. Psych prescreening labs completed and urine drug screen did come back positive for marijuana and amphetamines. I contacted Dr. Oleary and told him about patient case and he agrees to have patient admitted to the NPU. Dr. Licona was told about patient and he will be placing the admitting orders. Chart reviewed and patient discussed with midlevel. Agree with assessment and plan. Orders written patient seen and evaluated concur with midlevel's documentation Lab Data 05/09/23 08:22 05/09/23 08:22 Laboratory Results WBC 10.5 10^3/uL (4.0-10.0) H 05/09/23 08:22 RBC 5.21 10^6/uL (4.1-5.3) 05/09/23 08:22 Hgb 12.9 g/dL (11.5-15.3) 05/09/23 08:22 Hct 41.2 % (37.0-47.0) 05/09/23 08:22 MCV 79.1 fl (81-99) L 05/09/23 08:22 MCH 24.8 pg (28.0-34.0) L 05/09/23 08:22 MCHC 31.3 g/dL (30.0-36.0) 05/09/23 08:22 RDW 17.3 % (12.1-15.1) H 05/09/23 08:22 Plt Count 506 10^3/cmm (130-400) H 05/09/23 08:22 MPV 8.4 fL (7.4-10.4) 05/09/23 08:22 Neut % (Auto) 62.0 % 05/09/23 08:22 Lymph % (Auto) 28.0 % 05/09/23 08:22 Sanders % (Auto) 5.4 % 05/09/23 08:22 Eos % (Auto) 3.7 % 05/09/23 08:22 Baso % (Auto) 0.5 % 05/09/23 08:22 Neut # (Auto) 6.48 10^3/uL (1.8-7.7) 05/09/23 08:22 Lymph # (Auto) 2.9 10^3/uL (0.8-4.8) 05/09/23 08:22 Sanders # (Auto) 0.6 10^3/uL (0.2-0.9) 05/09/23 08:22 Eos # (Auto) 0.4 10^3/uL (0.0-0.8) 05/09/23 08:22 Baso # (Auto) 0.1 10^3/uL (0.0-0.1) 05/09/23 08:22 Nucleated RBC % (auto) 0 % 05/09/23 08:22 Nucleated RBCs # 0.0 /100WBC 05/09/23 08:22 Sodium 137 mmol/L (136-145) 05/09/23 08:22 Potassium 3.6 mmol/L (3.5-5.1) 05/09/23 08:22 Chloride 100 mmol/L (98-107) 05/09/23 08:22 Carbon Dioxide 24 mmol/L (22-29) 05/09/23 08:22 Anion Gap 16.6 (5-19) 05/09/23 08:22 BUN 11 mg/dL (6-20) 05/09/23 08:22 Creatinine 0.8 mg/dL (0.5-0.9) 05/09/23 08:22 GFR Calculation 79.9 mL/min (90-130) L 05/09/23 08:22 Glucose 120 mg/dL (65-115) H 05/09/23 08:22 Calculated Osmolality 285 mOsm/kg (285-295) 05/09/23 08:22 Calcium 9.3 mg/dL (8.5-10.5) 05/09/23 08:22 Total Bilirubin 0.5 mg/dL (0.15-1.2) 05/09/23 08:22 AST 43 U/L (0-32) H 05/09/23 08:22 ALT 67 U/L (0-33) H 05/09/23 08:22 Alkaline Phosphatase 83 U/L (35-105) 05/09/23 08:22 Total Protein 7.6 g/dL (6.6-8.7) 05/09/23 08:22 Albumin 4.3 g/dL (3.5-5.2) 05/09/23 08:22 Globulin 3.3 g/dL (1.3-4.6) 05/09/23 08:22 HCG, Qual Negative (Negative) 05/09/23 08:22 Urine Color Yellow (Yellow) 05/09/23 08:30 Urine Appearance Cloudy (CLEAR) A 05/09/23 08:30 Urine pH 5 (5-7) 05/09/23 08:30 Ur Specific [place] 1.025 (1.005-1.030) 05/09/23 08:30 Urine Protein Trace (Negative) 05/09/23 08:30 Urine Glucose (UA) Norm (Normal) 05/09/23 08:30 Urine Ketones 2+ (Negative) H 05/09/23 08:30 Urine Blood Neg (Negative) 05/09/23 08:30 Urine Nitrate Negative (Negative) 05/09/23 08:30 Urine Bilirubin Neg (Negative) 05/09/23 08:30 Urine Urobilinogen 1 mg/dL (Negative) H 05/09/23 08:30 Ur Leukocyte Esterase Trace (Negative) H 05/09/23 08:30 Urine RBC None /hpf (0-2) 05/09/23 08:30 Urine WBC 5-10 /hpf (0-5) H 05/09/23 08:30 Ur Squamous Epith Cells 40-55 /hpf (0-5) H 05/09/23 08:30 Amorphous Sediment Not Reportable 05/09/23 08:30 Urine Bacteria 3+ /hpf (NONE) H 05/09/23 08:30 Salicylates < 0.3 mg/dL (3-10) L 05/09/23 08:22 Urine Opiates Screen Negative ng/mL (Negative) 05/09/23 08:30 Acetaminophen < 5.0 ug/mL (10-30) L 05/09/23 08:22 Ur Barbiturates Screen Negative ng/mL (Negative) 05/09/23 08:30 Ur Phencyclidine Scrn Negative ng/mL (Negative) 05/09/23 08:30 Ur Amphetamines Screen Positive ng/mL (Negative) H 05/09/23 08:30 U Benzodiazepines Scrn Negative ng/mL (Negative) 05/09/23 08:30 Urine Cocaine Screen Negative ng/mL (Negative) 05/09/23 08:30 U Marijuana (THC) Screen Positive ng/mL (Negative) H 05/09/23 08:30 Ethyl Alcohol < 10 mg/dL (0-10) 05/09/23 08:22 Discharge Plan Discharge Patient Disposition: Admitted As Inpatient Admit Provider: Brad,Arash Clinical Impression: Suicidal ideation Condition: Stable 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
[2023-05-09 08:29] LABS: Basophils # 0.1 10^3/uL (0.0-0.1); Basophils % 0.5 %; Eosinophils # 0.4 10^3/uL (0.0-0.8); Eosinophils % 3.7 %; Hematocrit 41.2 % (37.0-47.0); Hemoglobin 12.9 g/dL (11.5-15.3); Lymphocytes # 2.9 10^3/uL (0.8-4.8); Mean Corpuscular HGB Conc 31.3 g/dL (30.0-36.0); Mean Corpuscular Hemoglobin 24.8 pg (28.0-34.0); Mean Corpuscular Volume 79.1 fl (81-99); Mean Platelet Volume 8.4 fL (7.4-10.4); Monocytes # 0.6 10^3/uL (0.2-0.9); Monocytes % 5.4 %; Neutrophils # 6.48 10^3/uL (1.8-7.7); Nucleated Red Blood Cells % 0 %; Platelet Count 506 10^3/cmm (130-400); Red Blood Count 5.21 10^6/uL (4.1-5.3); Red Cell Distribution Width 17.3 % (12.1-15.1); White Blood Count 10.5 10^3/uL (4.0-10.0)
[2023-05-09 08:48] LABS: HCG, Serum Qual Negative (Negative)
[2023-05-09 08:54] LABS: Alanine Aminotransferase 67 U/L (0-33); Albumin Level 4.3 g/dL (3.5-5.2); Alkaline Phosphatase 83 U/L (35-105); Anion Gap 16.6 (5-19); Aspartate Amino Transferase 43 U/L (0-32); Blood Urea Nitrogen 11 mg/dL (6-20); Calcium 9.3 mg/dL (8.5-10.5); Carbon Dioxide 24 mmol/L (22-29); Chloride 100 mmol/L (98-107); Globulin 3.3 g/dL (1.3-4.6); Glomerular Filtration Rate 79.9 mL/min (90-130); Glucose 120 mg/dL (65-115); Osmolality Calculated 285 mOsm/kg (285-295); Potassium 3.6 mmol/L (3.5-5.1); Sodium 137 mmol/L (136-145); Total Bilirubin 0.5 mg/dL (0.15-1.2); Total Protein 7.6 g/dL (6.6-8.7)
[2023-05-09 08:57] LABS: Acetaminophen < 5.0 ug/mL (10-30); Alcohol Level < 10 mg/dL (0-10); Salicylate < 0.3 mg/dL (3-10)
[2023-05-09 09:00] LABS: Amphetamines Screen Urine Positive (Negative); Barbiturates Screen Urine Negative (Negative); Benzodiazepines Screen Urine Negative (Negative); Cocaine Screen Urine Negative (Negative); Opiate Screen Urine Negative (Negative); PCP Screen Urine Negative (Negative); THC Screen Urine Positive (Negative)
[2023-05-09 09:11] LABS: Urine Appearance Cloudy (CLEAR); Urine Color Yellow (Yellow)
[2023-05-09 09:12] LABS: Add Urine Microscopic? YES; Bilirubin Urine Neg (Negative); Blood Urine Neg (Negative); Glucose Urine UA Norm (Normal); Ketones Urine 2+ (Negative); Leukocyte Esterase Urine Trace (Negative); Nitrate Urine Negative (Negative); Protein Urine Trace (Negative); Specific Gravity, Urine 1.025 (1.005-1.030); Urobilinogen Urine 1 mg/dL (Negative); pH Urine 5 (5-7)
[2023-05-09 09:14] LABS: Add Urine Culture? No; Bacteria Urine 3+ /hpf; Squamous Epithelial Cell Urine 40-55 /hpf (0-5)
[2023-05-09] MEDS: LORazepam 1 mg Tablet PO (10:28)
--- NOTE | 2023-05-09 11:00 | PC.PHAR ---
PT STATES SHE HASNT TAKEN HER MEDS IN 3 WEEKS-PT STATES SHE IS NOW ALLERGIC TO HYDROXYZINE PAMOATE-PT STATES OLANZAPINE DOESNT WORK-NOTES ARE MADE IN THE PHARMACY COMMENTS WITH LAST FILLED DATES
[2023-05-09 13:41] VITALS: BP 118/81; PULSE 105; RESP 17; TEMP 36.7; O2SAT 98
[2023-05-09 14:00] VITALS: BP 120/80; PULSE 99; RESP 17; TEMP 36.6; O2SAT 97
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
[2023-05-09] MEDS: loperamide 2 mg Capsule PO (15:56)
[2023-05-09] MEDS: ibuprofen 800 mg tablet PO (15:56)
[2023-05-09] MEDS: nicotine 4 mg lozenge MUCOUS MEM ×2 (15:57→18:35)
[2023-05-09] MEDS: blistex lip oint 7 gm Tube 1 APPLIC TOPICAL (16:11)
[2023-05-09] MEDS: phenazopyridine 100 mg Tablet 200 MG PO (18:35)
[2023-05-09] MEDS: neomycin-poly-bacitracin oint 28 gm 1 APPLIC TOPICAL (18:36)
[2023-05-09] MEDS: sulfamethoxazole-trimeth DS 160-800 mg Tablet 1 TAB PO (18:36)
[2023-05-09] MEDS: quetiapine 100 mg Tablet 300 MG PO (20:06)
[2023-05-09] MEDS: trazodone 50 mg Tablet PO (20:10)
[2023-05-09 22:00] VITALS: BP 124/81; PULSE 86; RESP 18; TEMP 36.7; O2SAT 96
[2023-05-10 06:00] VITALS: BP 98/64; PULSE 84; RESP 18; TEMP 36.9; O2SAT 93
[2023-05-10] MEDS: blistex lip oint 7 gm Tube 1 APPLIC TOPICAL (12:39)
[2023-05-10] MEDS: nicotine 4 mg lozenge MUCOUS MEM ×3 (12:39→20:08)
[2023-05-10] MEDS: sulfamethoxazole-trimeth DS 160-800 mg Tablet 1 TAB PO ×2 (12:39→18:08)
[2023-05-10] MEDS: phenazopyridine 100 mg Tablet 200 MG PO ×2 (12:39→18:07)
[2023-05-10] MEDS: ibuprofen 800 mg tablet PO (12:39)
[2023-05-10] MEDS: buprenorphine-naloxone 4-1 mg Film 1 EACH SUBLINGUAL ×2 (12:39→18:07)
[2023-05-10] MEDS: neomycin-poly-bacitracin oint 28 gm 1 APPLIC TOPICAL ×2 (12:40→18:08)
[2023-05-10] MEDS: sertraline 50 mg Tablet 25 MG PO (12:40)
[2023-05-10 14:00] VITALS: BP 97/63; PULSE 85; RESP 15; TEMP 37; O2SAT 96
--- NOTE | 2023-05-10 17:36 | P.NPUPN_ITS ---
Subjective NPU Subjective: The patient is a 37-year-old white female with borderline personality disorder, PTSD, suicidal ideation methamphetamine use and major depression who was admitted with suicidal thoughts and worsening depression. She reports that she thinks she needs a guardian as she fails to make good decisions about herself. She reports continued suicidal thoughts. She reports low energy, feelings of hopelessness. She reports difficulties with concentration. She continued to isolate herself on the milieu. Mental Status Exam MSE Comments: She is a casually dressed pleasant female who was cooperative on interview. Her gait was within normal limits. Her hygiene was fair. There was no evidence of any abnormal involuntary motor movements tics or tremors appreciated. There was evidence of psychomotor retardation. Her mood was described as depressed. Her affect was restricted in range and mood-congruent. She endorsed suicidal ideation without a plan. She denied any homicidal ideation. She did not appear to be responding internal stimuli. There was no evidence of any delusional thi nking. Her attention was variable. there was no clear evidence of any auditory or visual hallucinations. Her insight is poor.. Her judgment is poor. Her impulse control appeared limited. Vitals/I&O/Wt Last Vital Signs Temp 98.6 F 05/10/23 14:00 Pulse 85 05/10/23 14:00 Resp 15 05/10/23 14:00 BP 97/63 05/10/23 14:00 Pulse Ox 96 05/10/23 14:00 O2 Del Method Room Air 05/10/23 06:00 Weight last 48 hrs Weight 97.069 kg Data NPU 05/09/23 08:22 05/09/23 08:22 Micro: Microbiology 05/09/23 17:40 Chlamydia trachomatis (JUSTYNA) - Final Urine Random Neisseria gonorrhoeae (JUSTYNA) - Final Microbiology 05/09/23 17:40 Urine Random Chlamydia trachomatis (JUSTYNA) - Final 05/09/23 17:40 Urine Random Neisseria gonorrhoeae (JUSTYNA) - Final A&P Assessment and plan (1) Amphetamine use disorder, severe: (2) Suicidal ideation: (3) Major depressive disorder: Qualifiers: Active/Remission status: currently active Major depression episode severity: moderate Major depression recurrence: recurrent Qualified Code(s): F33.1 - Major depressive disorder, recurrent, moderate (4) Suicidal ideation: (5) Depression: (6) Bipolar disorder: (7) Borderline personality disorder: (8) Acute anxiety: (9) Alcohol use disorder, moderate, dependence: (10) Cannabis use disorder, severe, dependence: Plan This is a 37-year-old female with a long history of mental health and addiction challenges who again presents with active use/addiction reporting depression, suicidal thoughts and inability to contract for safety outside the hospital open to medication changes. 1. Simplify medication regimen, begin low dose of Suboxone 4/.5SL bid, increase zoloft 50mg in am to target depression. Continue Seroquel 300mg qhs as prescribed. 2. Continue every 15 minute checks for safety. 3. Encourage individual, group and milieu therapies. 4. Encourage sober living treatment after discharge at the highest level of care to which she is willing to commit. Consider inpatient substance abuse treatment. Involuntary Hold Information 96 Hour Hold: 96 Hour Involuntary Admission: No Attestations NPU Medical Necessity Statement*: Inpatient hospitalization is medically necessary and the clinically appropriate intervention at this time. We will monitor medication to make changes as indicated. The patient will stay for at least 2 midnights. Her likely length of stay is 4-6 days. Coding Level of Care Code Acute Code for [facility] Fwd Diagnoses Amphetamine use disorder, severe F15.20 Suicidal ideation R45.851 Major depressive disorder F33.1 Active/Remission status: currently active Major depression episode severity: moderate Major depression recurrence: recurrent Depression F32.A Bipolar disorder F31.9 Borderline personality disorder F60.3 Acute anxiety F41.9 Alcohol use disorder, moderate, dependence F10.20 Cannabis use disorder, severe, dependence F12.20
[2023-05-10 19:55] VITALS: BP 111/81; PULSE 96; RESP 17; TEMP 36.5; O2SAT 96
[2023-05-10] MEDS: ondansetron 4 MG Tablet PO (20:05)
[2023-05-10] MEDS: haloperidol 5 mg Tablet PO (20:05)
[2023-05-10] MEDS: quetiapine 100 mg Tablet 300 MG PO (20:05)
[2023-05-10] MEDS: trazodone 50 mg Tablet PO (20:05)
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
[2023-05-11 06:00] VITALS: BP 111/71; PULSE 82; RESP 16; O2SAT 93; BMI 33.5
[2023-05-11] MEDS: phenazopyridine 100 mg Tablet 200 MG PO ×3 (08:38→17:31)
[2023-05-11] MEDS: sertraline 50 mg Tablet PO (08:39)
[2023-05-11] MEDS: sulfamethoxazole-trimeth DS 160-800 mg Tablet 1 TAB PO ×2 (08:39→17:31)
[2023-05-11] MEDS: buprenorphine-naloxone 4-1 mg Film 1 EACH SUBLINGUAL ×2 (08:40→17:31)
[2023-05-11] MEDS: simethicone 80 mg Chew PO (08:41)
--- NOTE | 2023-05-11 09:28 | PC.NURSE ---
Refused triple antibiotic ointment this morning. Patient stated, I really don't need that. No thanks. This RN examined the patient's wound on her heel and it appear to be scabbed over and healing well.
--- NOTE | 2023-05-11 12:30 | P.NPUPN_ITS ---
Subjective NPU Subjective: The patient is a 37-year-old white female with borderline personality disorder, PTSD, suicidal ideation methamphetamine use and major depression who was admitted with suicidal thoughts and worsening depression. She continued to endorse suicidal ideation. She had reported some improvement in her pain. She had endorsed continued feelings of helplessness. She had continued to reiterate that she needed to be placed under the guardianship of another due to her poor ability to manage her wellbeing. She had reported no side effects from her current medication. She had reported occasional nightmares and reported chronic problems with being in groups and crowds. She had reported feeling paranoid and frequently distrustful of others. Staff notes the patient had continued to isolate herself in her room. Mental Status Exam MSE Comments: She is a casually dressed pleasant female who was cooperative on interview. Her gait was within normal limits. Her hygiene was poor today. There was no evidence of any abnormal involuntary motor movements tics or tremors appreciated. There was continued evidence of psychomotor retardation. Her mood was described as depressed. Her affect was restricted in range and mood- congruent. She endorsed suicidal ideation without a plan. She denied any homicidal ideation. She did not appear to be responding internal stimuli. There was no evidence of any delusional thinking. Her attention was variable. there was no clear evidence of any auditory or visual hallucinations. Her insight is poor.. Her judgment is poor. Her impulse control appeared limited. She reported no cravings for methamphetamine at this time but did acknowledge recent use having caused a great deal of problems with worsening mood and the withdrawal from methamphetamine. Vitals/I&O/Wt Last Vital Signs Temp 97.7 F 05/10/23 19:55 Pulse 82 05/11/23 06:00 Resp 16 05/11/23 06:00 BP 111/71 05/11/23 06:00 Pulse Ox 93 05/11/23 06:00 O2 Del Method Room Air 05/10/23 06:00 Weight last 48 hrs Weight 97.069 kg Data NPU 05/09/23 08:22 05/09/23 08:22 Micro: Microbiology 05/09/23 17:40 Chlamydia trachomatis (JUSTYNA) - Final Urine Random Neisseria gonorrhoeae (JUSTYNA) - Final Microbiology 05/09/23 17:40 Urine Random Chlamydia trachomatis (JUSTYNA) - Final 05/09/23 17:40 Urine Random Neisseria gonorrhoeae (JUSTYNA) - Final A&P Assessment and plan (1) Amphetamine use disorder, severe: (2) Suicidal ideation: (3) Major depressive disorder: Qualifiers: Active/Remission status: currently active Major depression episode severity: moderate Major depression recurrence: recurrent Qualified Code(s): F33.1 - Major depressive disorder, recurrent, moderate (4) Suicidal ideation: (5) Depression: (6) Bipolar disorder: (7) Borderline personality disorder: (8) Acute anxiety: (9) Alcohol use disorder, moderate, dependence: (10) Cannabis use disorder, severe, dependence: Plan This is a 37-year-old female with a long history of mental health and addiction challenges who again presents with active use/addiction reporting depression, suicidal thoughts and inability to contract for safety outside the hospital open to medication changes. 1. Simplify medication regimen, continue Suboxone 4/.5SL bid, continue zoloft 50mg in am to target depression. Continue Seroquel 300mg qhs as prescribed. 2. Continue every 15 minute checks for safety. 3. Encourage individual, group and milieu therapies. 4. Encourage sober living treatment after discharge at the highest level of care to which she is willing to commit. Consider inpatient substance abuse treatment. Involuntary Hold Information 2 96 Hour Hold: 96 Hour Involuntary Admission: No Attestations NPU Medical Necessity Statement*: Inpatient hospitalization is medically necessary and the clinically appropriate intervention at this time. We will monitor medication to make changes as indicated. The patient will stay for at least 2 midnights. Her likely length of stay is 4-6 days. Coding Level of Care Code Acute Code for [facility] Diagnoses Amphetamine use disorder, severe F15.20 Suicidal ideation R45.851 Major depressive disorder F33.1 Active/Remission status: currently active Major depression episode severity: moderate Major depression recurrence: recurrent Depression F32.A Bipolar disorder F31.9 Borderline personality disorder F60.3 Acute anxiety F41.9 Alcohol use disorder, moderate, dependence F10.20 Cannabis use disorder, severe, dependence F12.20
[2023-05-11 14:00] VITALS: BP 103/70; PULSE 76; RESP 15; TEMP 36.8; O2SAT 95
[2023-05-11] MEDS: OLANZapine 5 mg ODT PO (17:31)
--- NOTE | 2023-05-11 17:34 | PC.NURSE ---
Patient reports intense anxiety . Patient was not able to calm down after some time, so this nurse administered 5mg Zyprexa ODT. Will continue to monitor.
--- NOTE | 2023-05-11 17:58 | PC.NURSE ---
Refused triple antibiotic ointment this morning and continues to refuse it. Patient stated she doesn't really need it at this time. Her heel is healing well.
[2023-05-11 19:38] VITALS: BP 133/81; PULSE 77; RESP 16; O2SAT 91
[2023-05-11] MEDS: quetiapine 100 mg Tablet 300 MG PO (20:07)
[2023-05-11] MEDS: trazodone 50 mg Tablet PO ×2 (20:08→21:09)
[2023-05-11] MEDS: nicotine 4 mg lozenge MUCOUS MEM (20:20)
[2023-05-12 06:00] VITALS: BP 120/79; PULSE 76; RESP 16; O2SAT 93
[2023-05-12] MEDS: sulfamethoxazole-trimeth DS 160-800 mg Tablet 1 TAB PO (08:45)
[2023-05-12] MEDS: sertraline 50 mg Tablet PO (08:45)
[2023-05-12] MEDS: phenazopyridine 100 mg Tablet 200 MG PO ×2 (08:46→12:34)
[2023-05-12] MEDS: buprenorphine-naloxone 4-1 mg Film 1 EACH SUBLINGUAL ×2 (08:46→18:20)
--- NOTE | 2023-05-12 08:58 | PC.NURSE ---
Refused triple antibiotic ointment this morning. Patient stated she didn't think she needed it anymore. This RN examined the patient's wound on her heel and it has scabbed and is nearly healed. Will discuss discontinuing medication with doctor if it continues to heal.
[2023-05-12] MEDS: OLANZapine 5 mg ODT PO ×2 (12:38→23:41)
[2023-05-12] MEDS: ibuprofen 800 mg tablet PO ×2 (13:30→20:29)
[2023-05-12] MEDS: nicotine 4 mg lozenge MUCOUS MEM (13:49)
[2023-05-12 14:00] VITALS: BP 126/82; PULSE 91; RESP 18; TEMP 36.5; O2SAT 93
--- NOTE | 2023-05-12 16:27 | W.PM.NPUPNS ---
Subjective NPU Subjective: The patient is a 37-year-old white female with borderline personality disorder, PTSD, suicidal ideation methamphetamine use and major depression who was admitted with suicidal thoughts and worsening depression. She continued to endorse suicidal ideation and depression. She reported interest in attending [facility] on an inpatient basis to manage her addiction. She reported that she may benefit from having a guardian and her her mother was discussed as a potential option for this. She had reported continued fatigue and reported difficulties with managing her self-care. She stated that her continued use of methamphetamine was problematic. She reported difficulties with concentration. She reported difficulties with managing her mood with history of mood fluctuations. She reported no side effects from her Zoloft at this time. Mental Status Exam MSE Comments: She is a casually dressed pleasant female who was cooperative on interview. Her gait was within normal limits. Her hygiene was poor. There was no evidence of any abnormal involuntary motor movements tics or tremors appreciated. There was continued evidence of psychomotor retardation. Her mood was described as depressed. Her affect was restricted in range and mood-congruent. She endorsed suicidal ideation without a plan. She denied any homicidal ideation. She did not appear to be responding internal stimuli. There was no evidence of any delusional thinking. Her attention was variable. there was no clear evidence of any auditory or visual hallucinations. Her insight is poor.. Her judgment is poor. Her impulse control appeared limited. Vitals/I&O/Wt Last Vital Signs Temp 97.7 F 05/12/23 14:00 Pulse 91 05/12/23 14:00 Resp 18 05/12/23 14:00 BP 126/82 05/12/23 14:00 Pulse Ox 93 05/12/23 14:00 O2 Del Method Room Air 05/11/23 19:38 Weight last 48 hrs Weight 97.069 kg Data NPU 05/09/23 08:22 05/09/23 08:22 A&P Assessment and plan (1) Amphetamine use disorder, severe: (2) Suicidal ideation: (3) Major depressive disorder: Qualifiers: Active/Remission status: currently active Major depression episode severity: moderate Major depression recurrence: recurrent Qualified Code(s): F33.1 - Major depressive disorder, recurrent, moderate (4) Suicidal ideation: (5) Depression: (6) Bipolar disorder: (7) Borderline personality disorder: (8) Acute anxiety: (9) Alcohol use disorder, moderate, dependence: (10) Cannabis use disorder, severe, dependence: Plan This is a 37-year-old female with a long history of mental health and addiction challenges who again presents with active use/addiction reporting depression, suicidal thoughts and inability to contract for safety outside the hospital open to medication changes. 1. Simplify medication regimen, continue Suboxone 4/1SL bid, increase zoloft 75mg in am to target depression. Continue Seroquel 300mg qhs as prescribed. 2. Continue every 15 minute checks for safety. 3. Encourage individual, group and milieu therapies. 4. Encourage sober living treatment after discharge at the highest level of care to which she is willing to commit. Consider inpatient substance abuse treatment. Involuntary Hold Information 96 Hour Hold: 96 Hour Involuntary Admission: No Attestations U Medical Necessity Statement*: Inpatient hospitalization is medically necessary and the clinically appropriate intervention at this time. We will monitor medication to make changes as indicated. Her likely length of stay is 4-6 days. Coding Level of Care Code Acute Code for [facility] Diagnoses Amphetamine use disorder, severe F15.20 Suicidal ideation R45.851 Major depressive disorder F33.1 Active/Remission status: currently active Major depression episode severity: moderate Major depression recurrence: recurrent Depression F32.A Bipolar disorder F31.9 Borderline personality disorder F60.3 Acute anxiety F41.9 Alcohol use disorder, moderate, dependence F10.20 Cannabis use disorder, severe, dependence F12.20
[2023-05-12 19:49] VITALS: BP 122/69; PULSE 72; RESP 16; TEMP 36.8; O2SAT 97
[2023-05-12] MEDS: quetiapine 100 mg Tablet 300 MG PO (20:18)
[2023-05-12] MEDS: trazodone 50 mg Tablet PO (20:19)
[2023-05-12] MEDS: blistex lip oint 7 gm Tube 1 APPLIC TOPICAL (20:41)
[2023-05-13 06:00] VITALS: BP 123/78; PULSE 78; RESP 15; O2SAT 98
[2023-05-13] MEDS: buprenorphine-naloxone 4-1 mg Film 1 EACH SUBLINGUAL (08:41)
[2023-05-13] MEDS: sertraline 50 mg Tablet 75 MG PO (08:41)
[2023-05-13] MEDS: OLANZapine 5 mg ODT PO ×2 (12:05→20:06)
[2023-05-13] MEDS: nicotine 4 mg lozenge MUCOUS MEM ×3 (12:05→20:39)
[2023-05-13] MEDS: ibuprofen 800 mg tablet PO (13:08)
[2023-05-13 13:28] VITALS: BP 112/71; PULSE 94; RESP 16; TEMP 36.7; O2SAT 95
[2023-05-13] MEDS: acetaminophen 325 mg Tablet 650 MG PO (15:39)
[2023-05-13] MEDS: neomycin-poly-bacitracin oint 28 gm 1 APPLIC TOPICAL (15:43)
[2023-05-13] MEDS: blistex lip oint 7 gm Tube 1 APPLIC TOPICAL (15:43)
--- NOTE | 2023-05-13 17:22 | W.PM.NPUPNS ---
Subjective NPU Subjective: The patient is a 37-year-old white female with borderline personality disorder, PTSD, suicidal ideation methamphetamine use and major depression who was admitted with suicidal thoughts and worsening depression. She continued to endorse suicidal ideation and depression. Patient had reported that she had some relief of pain with no cravings for opiates. She had reported that she would like to consider going to a group home as well. She had expressed interest in consideration for a digital therapeutic application for treating her methamphetamine abuse. She had continue to report depression but stated that she was having less frequent suicidal thoughts. She had stated that she did not now want to consider [facility] for inpatient rehabilitation. The patient had continued to isolate herself on the milieu with minimal interactions noted in group. Mental Status Exam MSE Comments: She is a casually dressed pleasant female who was cooperative on interview. Her gait was within normal limits. Her hygiene was poor. There was no evidence of any abnormal involuntary motor movements tics or tremors appreciated. There was continued evidence of psychomotor retardation. Her mood remained depressed. Her affect was restricted in range and mood-congruent. She endorsed suicidal ideation without a plan. She denied any homicidal ideation. She did not appear to be responding internal stimuli. There was no evidence of any delusional thinking. Her attention was variable. there was no clear evidence of any auditory or visual hallucinations. Her insight is poor. Her judgment is poor. Her impulse control appeared limited. Vitals/I&O/Wt Last Vital Signs Temp 98.1 F 05/13/23 13:28 Pulse 94 05/13/23 13:28 Resp 16 05/13/23 13:28 BP 112/71 05/13/23 13:28 Pulse Ox 95 05/13/23 13:28 O2 Del Method Room Air 05/13/23 06:00 Data NPU 05/09/23 08:22 05/09/23 08:22 A&P Assessment and plan (1) Amphetamine use disorder, severe: (2) Suicidal ideation: (3) Major depressive disorder: Qualifiers: Active/Remission status: currently active Major depression episode severity: moderate Major depression recurrence: recurrent Qualified Code(s): F33.1 - Major depressive disorder, recurrent, moderate (4) Suicidal ideation: (5) Depression: (6) Bipolar disorder: (7) Borderline personality disorder: (8) Acute anxiety: (9) Alcohol use disorder, moderate, dependence: (10) Cannabis use disorder, severe, dependence: Plan This is a 37-year-old female with a long history of mental health and addiction challenges who again presents with active use/addiction reporting depression, suicidal thoughts and inability to contract for safety outside the hospital open to medication changes. 1. Simplify medication regimen, increase suboxone 8mg/2mg SL BID continue zoloft 75mg in am to target depression. Continue Seroquel 300mg qhs as prescribed. 2. Continue every 15 minute checks for safety. 3. Encourage individual, group and milieu therapies. 4. Encourage sober living treatment after discharge at the highest level of care to which she is willing to commit. Patient refusing inpatient substance abuse treatment. Involuntary Hold Information 96 Hour Hold: 96 Hour Involuntary Admission: No Attestations U Medical Necessity Statement*: Inpatient hospitalization is medically necessary and the clinically appropriate intervention at this time. We will monitor medication to make changes as indicated. Her likely length of stay is 4-6 days. Coding Level of Care Code Acute Code for [facility] Diagnoses Amphetamine use disorder, severe F15.20 Suicidal ideation R45.851 Major depressive disorder F33.1 Active/Remission status: currently active Major depression episode severity: moderate Major depression recurrence: recurrent Depression F32.A Bipolar disorder F31.9 Borderline personality disorder F60.3 Acute anxiety F41.9 Alcohol use disorder, moderate, dependence F10.20 Cannabis use disorder, severe, dependence F12.20
[2023-05-13] MEDS: buprenorphine-naloxone 4-1 mg Film 2 EACH SUBLINGUAL (17:35)
[2023-05-13] MEDS: haloperidol 5 mg Tablet PO (18:29)
[2023-05-13] MEDS: quetiapine 100 mg Tablet 300 MG PO (20:04)
[2023-05-13] MEDS: trazodone 50 mg Tablet PO (20:06)
[2023-05-13 20:09] VITALS: BP 123/58; PULSE 83; RESP 17; TEMP 36.9; O2SAT 95
[2023-05-14 06:00] VITALS: BP 120/82; PULSE 100; RESP 4; O2SAT 90
[2023-05-14] MEDS: neomycin-poly-bacitracin oint 28 gm 1 APPLIC TOPICAL ×2 (08:23→20:16)
[2023-05-14] MEDS: blistex lip oint 7 gm Tube 1 APPLIC TOPICAL (08:23)
[2023-05-14] MEDS: sertraline 50 mg Tablet 75 MG PO (08:24)
[2023-05-14] MEDS: nicotine 4 mg lozenge MUCOUS MEM ×3 (08:24→14:19)
[2023-05-14] MEDS: ibuprofen 800 mg tablet PO (08:24)
[2023-05-14] MEDS: buprenorphine-naloxone 4-1 mg Film 2 EACH SUBLINGUAL ×2 (08:25→17:08)
[2023-05-14] MEDS: acetaminophen 325 mg Tablet 650 MG PO (11:11)
[2023-05-14] MEDS: OLANZapine 5 mg ODT PO ×2 (11:55→17:07)
[2023-05-14 14:00] VITALS: BP 117/74; PULSE 82; RESP 17; TEMP 36.9; O2SAT 94
[2023-05-14] MEDS: haloperidol 5 mg Tablet PO (14:19)
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
[2023-05-14] MEDS: fluconazole 100 mg Tablet 150 MG PO (18:49)
[2023-05-14] MEDS: quetiapine 100 mg Tablet 300 MG PO (20:16)
[2023-05-14] MEDS: trazodone 50 mg Tablet PO (20:22)
[2023-05-14 20:51] VITALS: BP 115/67; PULSE 90; RESP 16; O2SAT 97
[2023-05-15 06:00] VITALS: BP 113/75; PULSE 81; RESP 18; TEMP 37.2; O2SAT 95
[2023-05-15] MEDS: buprenorphine-naloxone 4-1 mg Film 2 EACH SUBLINGUAL ×2 (08:45→17:17)
[2023-05-15] MEDS: OLANZapine 5 mg ODT PO ×2 (08:45→18:12)
[2023-05-15] MEDS: sertraline 50 mg Tablet 100 MG PO (08:45)
[2023-05-15] MEDS: ibuprofen 800 mg tablet PO (08:45)
[2023-05-15] MEDS: nicotine 4 mg lozenge MUCOUS MEM ×3 (08:46→18:12)
[2023-05-15] MEDS: haloperidol 5 mg Tablet PO ×2 (13:59→20:22)
[2023-05-15 14:00] VITALS: BP 122/80; PULSE 103; RESP 16; TEMP 36.4; O2SAT 95
[2023-05-15] MEDS: acetaminophen 325 mg Tablet 650 MG PO (17:34)
--- NOTE | 2023-05-15 18:02 | W.PM.NPUPNS ---
Subjective NPU Subjective: Patient presented today reporting that she is feeling ready for discharge and that she and her social work team have come up with solutions as a viable option for tomorrow. She spent most of the interview discussing the medication and making sure that it would be provided at discharge. He talks about her recent hospitalization at [facility] and the shortcomings of that stay. She talked about her plan moving forward and once again downplayed her role and sobriety. Mental Status Exam MSE Comments: This is an obese 36-year-old female with limited grooming and eye contact.? She was wearing hospital scrubs with no abnormal movements except for mild psychomotor agitation. Cooperative with exam in mild distress that appears to be related to anxiety about being able to discharge the morning. Speech was more normal rate and volume.? Mood described as better, affect seemed brighter than previous stays. ? Thought process was linear and organized.? Thought content: Patient denied suicidal or homicidal ideation, there were no delusions reported or noted. She did not appear to be responding to internal stimuli. Attention and concentration were improving and memory appeared somewhat reliable but none were formally tested. She was alert and oriented x3. Insight and judgment appeared limited, impulse control appeared improving. Vitals/I&O/Wt Last Vital Signs Temp 98.1 F 05/15/23 21:46 Pulse 75 05/15/23 21:46 Resp 17 05/15/23 21:46 BP 122/83 05/15/23 21:46 Pulse Ox 99 05/15/23 21:46 O2 Del Method Room Air 05/15/23 21:46 Data NPU 05/09/23 08:22 05/09/23 08:22 A&P Assessment and plan (1) Amphetamine use disorder, severe: (2) Suicidal ideation: (3) Major depressive disorder: Qualifiers: Active/Remission status: currently active Major depression episode severity: moderate Major depression recurrence: recurrent Qualified Code(s): F33.1 - Major depressive disorder, recurrent, moderate (4) Suicidal ideation: (5) Depression: (6) Bipolar disorder: (7) Borderline personality disorder: (8) Acute anxiety: (9) Alcohol use disorder, moderate, dependence: (10) Cannabis use disorder, severe, dependence: Plan This is a 37-year-old female with a long history of mental health and addiction challenges who again presents with active use/addiction reporting depression, suicidal thoughts and inability to contract for safety outside the hospital open to medication changes. 1. Simplify medication regimen, continue suboxone 8mg/2mg SL BID increased zoloft 100mg in am to target depression. Continue Seroquel 300mg qhs as prescribed. 2. Continue every 15 minute checks for safety. 3. Encourage individual, group and milieu therapies. 4. Encourage sober living treatment after discharge at the highest level of care to which she is willing to commit. Patient seeking longterm options, wishes to consider inpatient rehab. Digital therapeutic ethan for treating depression. Involuntary Hold Information 96 Hour Hold: 96 Hour Involuntary Admission: No Attestations NPU Medical Necessity Statement*: Inpatient hospitalization is medically necessary and the clinically appropriate intervention at this time. We will monitor medication to make changes as indicated. Her likely length of stay is 3-5 days. May consider discharge if reasonable residential accommodations exist. Coding Level of Care Code Acute Code for [facility] Diagnoses Amphetamine use disorder, severe F15.20 Suicidal ideation R45.851 Major depressive disorder F33.1 Active/Remission status: currently active Major depression episode severity: moderate Major depression recurrence: recurrent Depression F32.A Bipolar disorder F31.9 Borderline personality disorder F60.3 Acute anxiety F41.9 Alcohol use disorder, moderate, dependence F10.20 Cannabis use disorder, severe, dependence F12.20
[2023-05-15] MEDS: blistex lip oint 7 gm Tube 1 APPLIC TOPICAL (18:13)
[2023-05-15] MEDS: neomycin-poly-bacitracin oint 28 gm 1 APPLIC TOPICAL (18:15)
[2023-05-15] MEDS: trazodone 50 mg Tablet PO ×2 (20:22→22:09)
[2023-05-15] MEDS: quetiapine 100 mg Tablet 300 MG PO (20:22)
[2023-05-15 21:46] VITALS: BP 122/83; PULSE 75; RESP 17; TEMP 36.7; O2SAT 99
[2023-05-16 06:00] VITALS: BP 112/76; PULSE 84; RESP 18; O2SAT 97
[2023-05-16] MEDS: buprenorphine-naloxone 4-1 mg Film 2 EACH SUBLINGUAL (08:25)
[2023-05-16] MEDS: blistex lip oint 7 gm Tube 1 APPLIC TOPICAL (08:25)
[2023-05-16] MEDS: sertraline 50 mg Tablet 100 MG PO (08:25)
[2023-05-16] MEDS: neomycin-poly-bacitracin oint 28 gm 1 APPLIC TOPICAL (08:28)
[2023-05-16] MEDS: nystatin cream 30 gm 1 APPLIC TOPICAL (08:29)
[2023-05-16] MEDS: OLANZapine 5 mg ODT PO (12:11)
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
== END 2023-05-16 14:10 | disposition home or self-care (01) | DRG 885 ==
LOC: ER 09:40 → NP 12:14
PROVIDERS: Physician Assistant; Admitting Provider Psychiatry & Neurology Psychiatry; Emergency Provider Family Medicine; Visit Provider Psychiatry & Neurology Psychiatry
DX: F31.9 Bipolar disorder, unspecified (principal); F15.20 Other stimulant dependence, uncomplicated; R45.851 Suicidal ideations; F60.3 Borderline personality disorder; F41.9 Anxiety disorder, unspecified; F10.20 Alcohol dependence, uncomplicated; F12.20 Cannabis dependence, uncomplicated; F17.210 Nicotine dependence, cigarettes, uncomplicated; F43.10 Post-traumatic stress disorder, unspecified; Z91.141 Patient's other noncompliance with medication regimen due to financial hardship
CPT/HCPCS: 80053; 80306; 80307; 81001; 84703; 85025; 87491; 87591; 97165; 99238; 99285; J0573; Q0162

== ENCOUNTER 2023-06-03 16:18 | Emergency (ER) | payer MEDICAID, SELFPAY ==
[2023-06-03 16:30] VITALS: BP 100/67; PULSE 60; RESP 14; TEMP 36.7; O2SAT 97; BMI 35.2
[2023-06-03 17:21] LABS: Basophils # 0.1 10^3/uL (0.0-0.1); Basophils % 0.6 %; Eosinophils # 0.4 10^3/uL (0.0-0.8); Eosinophils % 3.9 %; Hematocrit 38.3 % (37.0-47.0); Hemoglobin 11.7 g/dL (11.5-15.3); Lymphocytes # 3.8 10^3/uL (0.8-4.8); Lymphocytes % 38.7 %; Mean Corpuscular HGB Conc 30.5 g/dL (30.0-36.0); Mean Corpuscular Hemoglobin 25.4 pg (28.0-34.0); Mean Corpuscular Volume 83.1 fl (81-99); Mean Platelet Volume 8.8 fL (7.4-10.4); Monocytes # 0.6 10^3/uL (0.2-0.9); Monocytes % 5.9 %; Neutrophils # 4.93 10^3/uL (1.8-7.7); Neutrophils % 50.7 %; Nucleated Red Blood Cells % 0 %; Platelet Count 452 10^3/cmm (130-400); Red Blood Count 4.61 10^6/uL (4.1-5.3); Red Cell Distribution Width 16.9 % (12.1-15.1); White Blood Count 9.7 10^3/uL (4.0-10.0)
[2023-06-03 17:41] LABS: HCG, Serum Qual Negative (Negative)
--- NOTE | 2023-06-03 17:46 | PC.NURSE ---
ASSUMED CARE 1731
[2023-06-03 17:47] VITALS: BP 122/75; PULSE 56; RESP 18; O2SAT 98
--- NOTE | 2023-06-03 17:47 | W.ED.BACK ---
HPI - Back Pain/Injury General: Chief Complaint: Abdominal Pain Stated Complaint: abd pain (middle back) Time Seen by Provider: 06/03/23 17:41 History of Present Illness: Patient is a 37-year-old female who comes to the ED with lower back pain. Patient says she has chronic lower back pain. She states that approximately a week ago she started developing some worsening lower back pain but then helped her friend move some furniture about 3 to 4 days ago and since then she has had worsening lower back pain. Pain is all throughout her lower back on both sides. She rates the pain currently an 8 out of 10. Any movement causes worsening pain. She has been taking Tylenol and ibuprofen at home. Endorses some burning with urination and increased urine frequency. Denies any fevers. Associated symptoms: Reports dysuria; Deny abdominal pain, chills, fatigue, fever(s), hematuria, nausea or vomiting Review of Systems Const: Denies: fever(s), chills or fatigue Eyes: Denies: change in vision or eye discomfort ENMT: Denies: throat pain, odynophagia, nasal discharge or nasal congestion Card: Denies: chest pain, palpitations, edema, swelling of feet/ankles, dyspnea on exertion or orthopnea Resp: Denies: dyspnea, productive cough or non-productive cough GI: Denies: abdominal pain, nausea, vomiting, diarrhea, constipation or hematochezia : Reports: dysuria and urinary frequency; Denies: flank pain or hematuria Musc: Reports: back pain; Denies: neck pain or extremity swelling Skin/Breast: Denies: rash or new lesions Neuro: Denies: headache(s), numbness in extremities or weakness in extremities PFSH ED PFSH: Medical History Bipolar disorder Depression Major depressive disorder, recurrent severe without psychotic features Nicotine dependence, cigarettes, uncomplicated Psychiatric care Social History Smoking and tobacco status: current every day smoker cigarettes Packs smoked per day: 0.5 Years cigarettes smoked: 22 Quit status (tobacco): has tried quititng Number of times tried to quit tobacco: 3 Second hand smoke exposure: Yes Smoking risk assessment/counseling performed?: Yes Tobacco counseling given: counseling >3 minutes Physical Exam Const: COMMON NORMALS: no acute distress, patient oriented x3, healthy appearing and alert HENMT: COMMON NORMALS: normocephalic HEAD & SCALP: normocephalic MOUTH: Normal oral and palatal mucosa present THROAT: posterior oropharynx normal and uvula midline Neck/C-Spine: COMMON NORMALS: supple GENERAL: Yes normal visual inspection Resp: COMMON NORMALS: normal respiratory effort, No retractions, No use of accessory muscles and clear to auscultation bilaterally AUSCULTATION: clear to auscultation bilaterally Cardio: COMMON NORMALS: regular rate, regular rhythm, S1 normal heart sound present, S2 normal heart sound present, No gallops present (Cardio), No clicks present (Cardio), No murmurs present (Cardio) and Peripheral pulses 2+ throughout RATE: regular rate RHYTHM: regular rhythm HEART SOUNDS: S1 normal heart sound present and S2 normal heart sound present PERIPHERAL PULSES: Peripheral pulses 2+ throughout GI: COMMON NORMALS: Normal to inspection, nondistended, normoactive bowel sounds present, Soft to palpation, non-tender and no masses PALPATION: Yes Soft to palpation : COMMON NORMALS: Yes no CVA tenderness BLADDER/KIDNEY EXAM: Yes no CVA tenderness Back/Pelvis: COMMON NORMALS: no CVA tenderness LUMBAR SPINE/LOWER BACK: Yes normal to inspection, Yes lumbar ROM normal and Yes paraspinal muscle tenderness Lumbar paraspinal muscle tenderness: bilateral Extremity: COMMON NORMALS: normal to inspection Neuro: COMMON NORMALS: patient oriented x3 SENSORIUM/ORIENTATION: Yes alert GAIT: Yes Normal gait present Skin: GENERAL SKIN EXAM: dry skin Course Vital Signs: Vital signs: Vital Signs Temperature 98.0 F 06/03/23 16:30 Pulse Rate 56 L 06/03/23 17:47 Respiratory Rate 18 06/03/23 17:47 Blood Pressure 122/75 06/03/23 17:47 Pulse Oximetry 98 06/03/23 17:47 Oxygen Delivery Me thod Room Air 06/03/23 16:30 MDM - Back Pain/Injury Medical Decision Making Patient is a 37-year-old female who comes to the ED with lower back pain. Patient says she has chronic lower back pain. She states that approximately a week ago she started developing some worsening lower back pain but then helped her friend move some furniture about 3 to 4 days ago and since then she has had worsening lower back pain. Pain is all throughout her lower back on both sides. She rates the pain currently an 8 out of 10. Any movement causes worsening pain. She has been taking Tylenol and ibuprofen at home. Endorses some burning with urination and increased urine frequency. Denies any fevers. Vitals are stable. Patient appears nontoxic in no acute distress or pain. Patient has some bilateral lumbar paraspinal muscle tenderness but rest of exam is benign. CBC and CMP are unremarkable. UA shows signs of UTI. Patient was given a dose of Toradol and muscle relaxer here in the ED. She was diagnosed with low back strain and UTI and sent home with a prescription for an NSAID, muscle relaxer and antibiotic. Return to ED precautions given. Follow-up with PCP in the next week for reevaluation. Patient understood and agreed with plan. Labs I reviewed the patient's lab results. 06/03/23 16:51 06/03/23 16:51 Laboratory Results WBC 9.7 10^3/uL (4.0-10.0) 06/03/23 16:51 RBC 4.61 10^6/uL (4.1-5.3) 06/03/23 16:51 Hgb 11.7 g/dL (11.5-15.3) 06/03/23 16:51 Hct 38.3 % (37.0-47.0) 06/03/23 16:51 MCV 83.1 fl (81-99) 06/03/23 16:51 MCH 25.4 pg (28.0-34.0) L 06/03/23 16:51 MCHC 30.5 g/dL (30.0-36.0) 06/03/23 16:51 RDW 16.9 % (12.1-15.1) H 06/03/23 16:51 Plt Count 452 10^3/cmm (130-400) H 06/03/23 16:51 MPV 8.8 fL (7.4-10.4) 06/03/23 16:51 Neut % (Auto) 50.7 % 06/03/23 16:51 Lymph % (Auto) 38.7 % 06/03/23 16:51 [place] % (Auto) 5.9 % 06/03/23 16:51 Eos % (Auto) 3.9 % 06/03/23 16:51 Baso % (Auto) 0.6 % 06/03/23 16:51 Neut # (Auto) 4.93 10^3/uL (1.8-7.7) 06/03/23 16:51 Lymph # (Auto) 3.8 10^3/uL (0.8-4.8) 06/03/23 16:51 [place] # (Auto) 0.6 10^3/uL (0.2-0.9) 06/03/23 16:51 Eos # (Auto) 0.4 10^3/uL (0.0-0.8) 06/03/23 16:51 Baso # (Auto) 0.1 10^3/uL (0.0-0.1) 06/03/23 16:51 Nucleated RBC % (auto) 0 % 06/03/23 16:51 Nucleated RBCs # 0.0 /100WBC 06/03/23 16:51 Sodium 137 mmol/L (136-145) 06/03/23 16:51 Potassium 4.3 mmol/L (3.5-5.1) 06/03/23 16:51 Chloride 103 mmol/L (98-107) 06/03/23 16:51 Carbon Dioxide 24 mmol/L (22-29) 06/03/23 16:51 Anion Gap 14.3 (5-19) 06/03/23 16:51 BUN 10 mg/dL (6-20) 06/03/23 16:51 Creatinine 0.8 mg/dL (0.5-0.9) 06/03/23 16:51 GFR Calculation 79.9 mL/min (90-130) L 06/03/23 16:51 Glucose 85 mg/dL (65-115) 06/03/23 16:51 Calculated Osmolality 282 mOsm/kg (285-295) L 06/03/23 16:51 Calcium 9.0 mg/dL (8.5-10.5) 06/03/23 16:51 Total Bilirubin 0.2 mg/dL (0.15-1.2) 06/03/23 16:51 AST 33 U/L (0-32) H 06/03/23 16:51 ALT 29 U/L (0-33) 06/03/23 16:51 Alkaline Phosphatase 72 U/L (35-105) 06/03/23 16:51 Total Protein 7.0 g/dL (6.6-8.7) 06/03/23 16:51 Albumin 3.9 g/dL (3.5-5.2) 06/03/23 16:51 Globulin 3.1 g/dL (1.3-4.6) 06/03/23 16:51 Lipase 20 U/L (13-60) 06/03/23 16:51 HCG, Qual Negative (Negative) 06/03/23 16:51 Urine Color Yellow (Yellow) 06/03/23 17:42 Urine Appearance Cloudy (CLEAR) A 06/03/23 17:42 Urine pH 5 (5-7) 06/03/23 17:42 Ur Specific [place] 1.020 (1.005-1.030) 06/03/23 17:42 Urine Protein Trace (Negative) 06/03/23 17:42 Urine Glucose (UA) Norm (Normal) 06/03/23 17:42 Urine Ketones 1+ (Negative) H 06/03/23 17:42 Urine Blood 2+ (Negative) H 06/03/23 17:42 Urine Nitrate Negative (Negative) 06/03/23 17:42 Urine Bilirubin 1+ (Negative) H 06/03/23 17:42 Urine Urobilinogen 1 mg/dL (Negative) H 06/03/23 17:42 Ur Leukocyte Esterase 2+ (Negative) H 06/03/23 17:42 Urine RBC 5-10 /hpf (0-2) H 06/03/23 17:42 Urine WBC 10-15 /hpf (0-5) H 06/03/23 17:42 Ur Squamous Epith Cells 0-4 /hpf (0-5) H 06/03/23 17:42 Amorphous Sediment Not Reportable 06/03/23 17:42 Urine Bacteria 2+ /hpf (NONE) H 06/03/23 17:42 Urine Mucus 1+ /hpf 06/03/23 17:42 Urine Opiates Screen Negative ng/mL (Negative) 06/03/23 17:42 Ur Barbiturates Screen Negative ng/mL (Negative) 06/03/23 17:42 Ur Phencyclidine Scrn Negative ng/mL (Negative) 06/03/23 17:42 Ur Amphetamines Screen Negative ng/mL (Negative) 06/03/23 17:42 U Benzodiazepines Scrn Negative ng/mL (Negative) 06/03/23 17:42 Urine Cocaine Screen Negative ng/mL (Negative) 06/03/23 17:42 U Marijuana (THC) Screen Positive ng/mL (Negative) H 06/03/23 17:42 Discharge Plan Discharge Patient Disposition: Home Clinical Impression: Low back strain UTI (urinary tract infection) Qualifiers: Urinary tract infection type: acute cystitis Hematuria presence: with hematuria Qualified Code(s): N30.01 - Acute cystitis with hematuria Condition: Stable Prescriptions: New Bactrim DS 800-160 mg tablet 1 tab PO BID 7 Days Qty: 14 0RF cyclobenzaprine 10 mg tablet 10 mg PO BID PRN (Reason: muscle spasm) Qty: 20 0RF Celebrex 100 mg capsule 100 mg PO BID PRN (Reason: pain) Qty: 20 0RF No Action sertraline 100 mg tablet 100 mg PO DAILY 30 Days Qty: 30 1RF quetiapine 100 mg Tablet 300 mg PO BEDTIME 30 Days Qty: 90 1RF nystatin 100,000 unit/gram Cream 1 applic topical BID 30 Days Qty: 1 0RF haloperidol 5 mg Tablet 5 mg PO Q4H PRN (Reason: Agitation) 30 Days Qty: 30 1RF buprenorphine-naloxone 8-2 mg film 1 film sublingual BID 30 Days Qty: 60 0RF Zyprexa 10 mg tablet 10 mg PO BEDTIME 30 Days Qty: 30 1RF trazodone 50 mg Tablet 50 mg PO BEDTIME PRN (Reason: Sleep) 30 Days Qty: 30 1RF propranolol 20 mg tablet 20 mg PO TID 30 Days Qty: 90 1RF acetaminophen 500 mg Tablet 1,000 mg PO Q6H PRN (Reason: Pain) ibuprofen 200 mg Tablet 800 mg PO Q6H PRN (Reason: Pain) melatonin 5 mg Tablet 5 - 10 mg PO BEDTIME PRN (Reason: Sleep) Discharge Orders: Discharge ED (Routine); Ordered 06/03/23 Ordered By: Mark Mcwilliams Discharge Diet: Regular Discharge Activity: Increase activity as tolerated Patient Instructions: Urinary Tract Infection in Women (DC), Low Back Strain (ED) Activity Restrictions/Additional Instructions: Follow-up with medical provider as directed. Take medications as prescribed. Return to the ER or your medical provider if condition worsens. Please read and understand discharge instructions. Thank you for choosing [facility] for your healthcare needs today. Please realize this is an emergency room and that we are providing you with a medical screening exam and this may not be complete and all inclusive of all the testing and or work up that you may need to determine your ailment or severity of your illness. It is very important that you follow up as instructed or that you return to the Emergency Department should you have concerns or if your condition changes or worsens in any way. 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
[2023-06-03 17:50] LABS: Alanine Aminotransferase 29 U/L (0-33); Albumin Level 3.9 g/dL (3.5-5.2); Alkaline Phosphatase 72 U/L (35-105); Anion Gap 14.3 (5-19); Aspartate Amino Transferase 33 U/L (0-32); Blood Urea Nitrogen 10 mg/dL (6-20); Carbon Dioxide 24 mmol/L (22-29); Chloride 103 mmol/L (98-107); Globulin 3.1 g/dL (1.3-4.6); Glomerular Filtration Rate 79.9 mL/min (90-130); Glucose 85 mg/dL (65-115); Lipase 20 U/L (13-60); Osmolality Calculated 282 mOsm/kg (285-295); Potassium 4.3 mmol/L (3.5-5.1); Sodium 137 mmol/L (136-145); Total Bilirubin 0.2 mg/dL (0.15-1.2)
[2023-06-03] MEDS: orphenadrine 30 mg/mL Inj 2 mL 60 MG IM (18:01)
[2023-06-03] MEDS: ketorolac 60 mg/2 mL INJ IM (18:02)
[2023-06-03 18:10] LABS: Add Urine Microscopic? YES; Bilirubin Urine 1+ (Negative); Blood Urine 2+ (Negative); Glucose Urine UA Norm (Normal); Ketones Urine 1+ (Negative); Leukocyte Esterase Urine 2+ (Negative); Nitrate Urine Negative (Negative); Protein Urine Trace (Negative); Urine Appearance Cloudy (CLEAR); Urine Color Yellow (Yellow); Urobilinogen Urine 1 mg/dL (Negative); pH Urine 5 (5-7)
[2023-06-03 18:11] LABS: Bacteria Urine 2+ /hpf; Mucus Urine 1+ /hpf; Squamous Epithelial Cell Urine 0-4 /hpf (0-5)
[2023-06-03 18:12] LABS: Add Urine Culture? Yes; Amphetamines Screen Urine Negative (Negative); Barbiturates Screen Urine Negative (Negative); Benzodiazepines Screen Urine Negative (Negative); Cocaine Screen Urine Negative (Negative); Opiate Screen Urine Negative (Negative); PCP Screen Urine Negative (Negative); THC Screen Urine Positive (Negative)
== END 2023-06-03 18:34 | disposition home or self-care (01) ==
PROVIDERS: Physician Assistant; Emergency Provider Physician Assistant
DX: S39.012A Strain of muscle, fascia and tendon of lower back, initial encounter (principal); N30.01 Acute cystitis with hematuria; F17.210 Nicotine dependence, cigarettes, uncomplicated; X50.0XXA Overexertion from strenuous movement or load, initial encounter
CPT/HCPCS: 36415; 80053; 80306; 81001; 83690; 84703; 85025; 87077; 87086; 87186; 96372; 99284; J1885; J2360

== ENCOUNTER 2023-06-17 11:46 | Inpatient (IN) | payer MEDICAID, SELFPAY ==
[2023-06-17 11:48] VITALS: BP 142/97; PULSE 92; RESP 18; TEMP 36.8; O2SAT 98
[2023-06-17 12:14] LABS: Basophils # 0.1 10^3/uL (0.0-0.1); Basophils % 0.9 %; Eosinophils # 0.3 10^3/uL (0.0-0.8); Eosinophils % 2.6 %; Hematocrit 43.9 % (37.0-47.0); Hemoglobin 13.7 g/dL (11.5-15.3); Lymphocytes % 24.4 %; Mean Corpuscular HGB Conc 31.2 g/dL (30.0-36.0); Mean Corpuscular Hemoglobin 24.6 pg (28.0-34.0); Mean Corpuscular Volume 78.7 fl (81-99); Mean Platelet Volume 8.8 fL (7.4-10.4); Monocytes # 0.7 10^3/uL (0.2-0.9); Monocytes % 5.5 %; Neutrophils # 8.14 10^3/uL (1.8-7.7); Neutrophils % 66.4 %; Nucleated Red Blood Cells % 0 %; Platelet Count 589 10^3/cmm (130-400); Red Blood Count 5.58 10^6/uL (4.1-5.3); Red Cell Distribution Width 16.5 % (12.1-15.1); White Blood Count 12.3 10^3/uL (4.0-10.0)
--- NOTE | 2023-06-17 12:32 | PC.PHAR ---
VERIFIED TYLENOL AND IBUPROFEN WITH PATIENT. PT REQUESTED I CALL [facility] TO VERIFY REMAINDER OF MEDS. [facility]. PT STATES SHE IS OUT OF THIS MED.
[2023-06-17 12:43] LABS: Albumin Level 4.7 g/dL (3.5-5.2); Chloride 100 mmol/L (98-107); Total Bilirubin 1.1 mg/dL (0.15-1.2)
--- NOTE | 2023-06-17 12:58 | ED.C_ITS ---
HPI - Psych General: Chief Complaint: Psychiatric Symptoms Stated Complaint: MHE Time Seen by Provider: 06/17/23 11:48 History of Present Illness: Presents to the ER for mental health evaluation, patient is suicidal with no specific plan at this time. Been having suicidal thoughts for several days. Patient is pleasant and compliant with a flat affect. Patient is on several psychiatric medicines including Zyprexa, Seroquel, trazodone patient has been inpatient at this facility before. Review of Systems General: Reports: 10 or more systems reviewed and unremarkable except in HPI and below PFSH ED PFSH: Medical History Bipolar disorder Depression Major depressive disorder, recurrent severe without psychotic features Nicotine dependence, cigarettes, uncomplicated Psychiatric care Social History Smoking and tobacco status: current every day smoker cigarettes Packs smoked per day: 0.5 Years cigarettes smoked: 22 Quit status (tobacco): has tried quititng Number of times tried to quit tobacco: 3 Second hand smoke exposure: Yes Smoking risk assessment/counseling performed?: Yes Tobacco counseling given: counseling >3 minutes Physical Exam Const: COMMON NORMALS: no acute distress, average body habitus, patient oriented x3, no limitations, healthy appearing, alert and well nourished HENMT: COMMON NORMALS: normocephalic, atraumatic, hearing grossly normal bilaterally, external ears normal, Normal external nose present and moist oral mucous membranes HEAD & SCALP: normocephalic and atraumatic NOSE: Normal external nose present EXTERNAL EAR: Yes external ears normal Neck/C-Spine: COMMON NORMALS: full ROM, no lymphadenopathy, no meningeal signs, no JVD and Thyroid normal THYROID: Thyroid normal Chest: COMMONS NORMALS: normal inspection of the chest and normal palpation of entire chest wall Resp: COMMON NORMALS: normal respiratory effort, No retractions, No use of accessory muscles, clear to auscultation bilaterally and percussion normal AUSCULTATION: clear to auscultation bilaterally PERCUSSION: percussion normal Cardio: COMMON NORMALS: no JVD, regular rate, regular rhythm, S1 normal heart sound present, S2 normal heart sound present, No gallops present (Cardio), No clicks present (Cardio), No murmurs present (Cardio) and No rub (Cardio) R ATE: regular rate RHYTHM: regular rhythm HEART SOUNDS: S1 normal heart sound present and S2 normal heart sound present GI: COMMON NORMALS: Normal to inspection, nondistended, normoactive bowel sounds present Neuro: COMMON NORMALS: patient oriented x3 SENSORIUM/ORIENTATION: Yes alert MENINGEAL SIGNS: Yes no meningeal signs Course Vital Signs: Vital signs: Vital Signs Temperature 98.2 F 06/17/23 11:48 Pulse Rate 92 06/17/23 11:48 Respiratory Rate 18 06/17/23 11:48 Blood Pressure 142/97 06/17/23 11:48 Pulse Oximetry 98 06/17/23 11:48 Oxygen Delivery Me thod Room Air 06/17/23 11:48 MDM - Psych Medical Decision Making Presents to the ER with suicidal ideation. Lab work was obtained which revealed the patient is medically fit for MPU. Patient will be admitted to M[facility] Dr. Conner was notified and accepted for further evaluation and treatment. Differential Diagnosis Likely suicidal ideation; Unlikely acute psychosis, chronic schizophrenia, bipolar disorder, depression, drug-induced psychotic disorder or acute anxiety Medical Records I reviewed the patient's medical records. Lab Data I reviewed the patient's lab results. 06/17/23 12:07 06/17/23 12:07 Laboratory Results WBC 12.3 10^3/uL (4.0-10.0) H 06/17/23 12:07 RBC 5.58 10^6/uL (4.1-5.3) H 06/17/23 12:07 Hgb 13.7 g/dL (11.5-15.3) 06/17/23 12:07 Hct 43.9 % (37.0-47.0) 06/17/23 12:07 MCV 78.7 fl (81-99) L 06/17/23 12:07 MCH 24.6 pg (28.0-34.0) L 06/17/23 12:07 MCHC 31.2 g/dL (30.0-36.0) 06/17/23 12:07 RDW 16.5 % (12.1-15.1) H 06/17/23 12:07 Plt Count 589 10^3/cmm (130-400) H 06/17/23 12:07 MPV 8.8 fL (7.4-10.4) 06/17/23 12:07 Neut % (Auto) 66.4 % 06/17/23 12:07 Lymph % (Auto) 24.4 % 06/17/23 12:07 [place] % (Auto) 5.5 % 06/17/23 12:07 Eos % (Auto) 2.6 % 06/17/23 12:07 Baso % (Auto) 0.9 % 06/17/23 12:07 Neut # (Auto) 8.14 10^3/uL (1.8-7.7) H 06/17/23 12:07 Lymph # (Auto) 3.0 10^3/uL (0.8-4.8) 06/17/23 12:07 [place] # (Auto) 0.7 10^3/uL (0.2-0.9) 06/17/23 12:07 Eos # (Auto) 0.3 10^3/uL (0.0-0.8) 06/17/23 12:07 Baso # (Auto) 0.1 10^3/uL (0.0-0.1) 06/17/23 12:07 Nucleated RBC % (auto) 0 % 06/17/23 12:07 Nucleated RBCs # 0.0 /100WBC 06/17/23 12:07 Sodium 138 mmol/L (136-145) 06/17/23 12:07 Potassium 4.0 mmol/L (3.5-5.1) 06/17/23 12:07 Chloride 100 mmol/L (98-107) 06/17/23 12:07 Carbon Dioxide 23 mmol/L (22-29) 06/17/23 12:07 Anion Gap 19.0 (5-19) 06/17/23 12:07 BUN 16 mg/dL (6-20) 06/17/23 12:07 Creatinine 0.8 mg/dL (0.5-0.9) 06/17/23 12:07 GFR Calculation 79.9 mL/min (90-130) L 06/17/23 12:07 Glucose 115 mg/dL (65-115) 06/17/23 12:07 Calculated Osmolality 288 mOsm/kg (285-295) 06/17/23 12:07 Calcium 9.7 mg/dL (8.5-10.5) 06/17/23 12:07 Total Bilirubin 1.1 mg/dL (0.15-1.2) 06/17/23 12:07 AST 75 U/L (0-32) H 06/17/23 12:07 ALT 84 U/L (0-33) H 06/17/23 12:07 Alkaline Phosphatase 83 U/L (35-105) 06/17/23 12:07 Total Protein 8.6 g/dL (6.6-8.7) 06/17/23 12:07 Albumin 4.7 g/dL (3.5-5.2) 06/17/23 12:07 Globulin 3.9 g/dL (1.3-4.6) 06/17/23 12:07 HCG, Qual Negative (Negative) 06/17/23 13:20 Urine Color Tiny (Yellow) 06/17/23 13:20 Urine Appearance Clear (CLEAR) 06/17/23 13:20 Urine pH 5 (5-7) 06/17/23 13:20 Ur Specific [place] 1.020 (1.005-1.030) 06/17/23 13:20 Urine Protein 1+ (Negative) H 06/17/23 13:20 Urine Glucose (UA) Norm (Normal) 06/17/23 13:20 Urine Ketones 1+ (Negative) H 06/17/23 13:20 Urine Blood Neg (Negative) 06/17/23 13:20 Urine Nitrate Negative (Negative) 06/17/23 13:20 Urine Bilirubin 2+ (Negative) H 06/17/23 13:20 Urine Urobilinogen 4+ mg/dL (Negative) H 06/17/23 13:20 Ur Leukocyte Esterase Trace (Negative) H 06/17/23 13:20 Urine RBC 0-4 /hpf (0-2) H 06/17/23 13:20 Urine WBC 0-4 /hpf (0-5) H 06/17/23 13:20 Ur Squamous Epith Cells 0-4 /hpf (0-5) H 06/17/23 13:20 Amorphous Sediment Not Reportable 06/17/23 13:20 Urine Bacteria 2+ /hpf (NONE) H 06/17/23 13:20 Hyaline Casts 0-4 /lpf H 06/17/23 13:20 Urine Mucus 2+ /hpf 06/17/23 13:20 Salicylates < 0.3 mg/dL (3-10) L 06/17/23 12:07 Urine Opiates Screen Negative ng/mL (Negative) 06/17/23 13:20 Acetaminophen < 5.0 ug/mL (10-30) L 06/17/23 12:07 Ur Barbiturates Screen Negative ng/mL (Negative) 06/17/23 13:20 Ur Phencyclidine Scrn Negative ng/mL (Negative) 06/17/23 13:20 Ur Amphetamines Screen Positive ng/mL (Negative) H 06/17/23 13:20 U Benzodiazepines Scrn Negative ng/mL (Negative) 06/17/23 13:20 Urine Cocaine Screen Negative ng/mL (Negative) 06/17/23 13:20 U Marijuana (THC) Screen Positive ng/mL (Negative) H 06/17/23 13:20 Ethyl Alcohol < 10 mg/dL (0-10) 06/17/23 12:07 Discharge Plan Discharge Patient Disposition: Admitted As Inpatient Clinical Impression: Substance use disorder, Suicidal ideation Condition: Stable Coding Level of Care Code 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
[2023-06-17 13:15] LABS: Alanine Aminotransferase 84 U/L (0-33); Aspartate Amino Transferase 75 U/L (0-32); Blood Urea Nitrogen 16 mg/dL (6-20); Calcium 9.7 mg/dL (8.5-10.5); Osmolality Calculated 288 mOsm/kg (285-295); Sodium 138 mmol/L (136-145)
[2023-06-17 13:16] LABS: Acetaminophen < 5.0 ug/mL (10-30); Alcohol Level < 10 mg/dL (0-10); Alkaline Phosphatase 83 U/L (35-105); Carbon Dioxide 23 mmol/L (22-29); Globulin 3.9 g/dL (1.3-4.6); Glomerular Filtration Rate 79.9 mL/min (90-130); Glucose 115 mg/dL (65-115); Salicylate < 0.3 mg/dL (3-10); Total Protein 8.6 g/dL (6.6-8.7)
[2023-06-17 13:36] LABS: HCG Qualitative Urine. Negative (Negative)
[2023-06-17 13:55] LABS: Amphetamines Screen Urine Positive (Negative); Barbiturates Screen Urine Negative (Negative); Benzodiazepines Screen Urine Negative (Negative); Cocaine Screen Urine Negative (Negative); Opiate Screen Urine Negative (Negative); PCP Screen Urine Negative (Negative); THC Screen Urine Positive (Negative)
[2023-06-17 14:08] LABS: Add Urine Microscopic? YES; Bilirubin Urine 2+ (Negative); Blood Urine Neg (Negative); Glucose Urine UA Norm (Normal); Ketones Urine 1+ (Negative); Leukocyte Esterase Urine Trace (Negative); Nitrate Urine Negative (Negative); Protein Urine 1+ (Negative); Urine Appearance Clear (CLEAR); Urine Color Amber (Yellow); Urobilinogen Urine 4+ mg/dL (Negative); pH Urine 5 (5-7)
[2023-06-17 14:09] LABS: Add Urine Culture? Yes; Bacteria Urine 2+ /hpf; Hyaline Casts Urine 0-4 /lpf; Mucus Urine 2+ /hpf; RBC Urine 0-4 /hpf (0-2); Squamous Epithelial Cell Urine 0-4 /hpf (0-5); WBC Urine 0-4 /hpf (0-5)
[2023-06-17 16:45] VITALS: BP 129/86; PULSE 100; RESP 20; TEMP 36.6; O2SAT 99
[2023-06-17] MEDS: acetaminophen 325 mg Tablet 650 MG PO (17:07)
[2023-06-17] MEDS: sulfamethoxazole-trimeth DS 160-800 mg Tablet 1 TAB PO (20:52)
[2023-06-17] MEDS: nitrofurantoin SR (BID) 100 mg Capsule PO (20:52)
[2023-06-17] MEDS: hyDROXYzine 25 mg Capsule 50 MG PO (20:52)
[2023-06-17] MEDS: trazodone 50 mg Tablet PO (20:52)
[2023-06-17 21:25] VITALS: RESP 16
[2023-06-18] MEDS: OLANZapine 5 mg ODT PO ×3 (04:41→14:35)
[2023-06-18 06:00] VITALS: BP 111/74; PULSE 88; RESP 17; TEMP 36.7; O2SAT 94
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
[2023-06-18] MEDS: acetaminophen 325 mg Tablet 650 MG PO ×2 (06:50→18:01)
[2023-06-18] MEDS: nitrofurantoin SR (BID) 100 mg Capsule PO ×2 (08:12→20:10)
[2023-06-18] MEDS: sulfamethoxazole-trimeth DS 160-800 mg Tablet 1 TAB PO ×2 (08:12→17:49)
[2023-06-18] MEDS: blistex lip oint 7 gm Tube 1 APPLIC TOPICAL (08:14)
--- NOTE | 2023-06-18 08:37 | PC.NURSE ---
Denies si/hi and avh. Patient appears to be under the influence still. She asked for an appointment book this morning on which she had an appointment written down for June 05. She then asked this nurse what today's date was and after I replied that it was the 18 of June she said, oh okay, then I'll be out of here before my appointment. Patient calm and cooperative during assessment.
[2023-06-18] MEDS: CELEcoxib 100 mg Capsule PO (09:18)
[2023-06-18] MEDS: nicotine 2 mg Gum BUCCAL ×4 (09:35→20:10)
[2023-06-18] MEDS: loperamide 2 mg Capsule PO (09:35)
--- NOTE | 2023-06-18 10:55 | PC.NURSE ---
THIS RN ROUNDED ON PT THIS AM. PT STATES SHE HAS BEEN TAKING SUBOXONE 8MG/2MG WHILE SHE HAS BEEN HERE AND IS NOW REQUESTING DE. IMANI ADDS A NOON DOSE AND HE CAN KEEP THE HALDOL. REASSURED PT I WOULD SPEAK TO DR. DIALLO AND LET HIM KNOW HER REQUESTS. UPON REVIEW OF THE CHART THIS RN FOUND THAT PT HAS NOT BEEN TAKING SUBOXONE DURING HER STAY HERE. DR. DIALLO WAS NOTIFIED OF PTS CONCERNS AND REQUEST FOR MEDICATIONS. NO NEW ORDERS WERE RECEIVED. PT EDUCATION PROVIDED. PT WAS NOT HAPPY SHE DID NOT GET AN EXTRA DOSE OF SUBOXONE, NEVER REALIZING SHE HAS NOT RECEIVED IT SINCE SHE HAS BEEN HERE. ALL QUESTIONS WERE ANSWERED AND SUPPORT WAS VOICED.
[2023-06-18] MEDS: hyDROXYzine 25 mg Capsule 50 MG PO ×2 (13:16→20:10)
[2023-06-18 14:00] VITALS: BP 128/83; PULSE 82; RESP 18; TEMP 36.8; O2SAT 97
--- NOTE | 2023-06-18 15:13 | PC.OT ---
OT EVALUATION ATTEMPTED IN A.M.: PATIENT UNAVAILABLE AND P.M.: PATIENT SLEEPING SOUNDLY. WILL ATTEMPT AGAIN TOMORROW.
[2023-06-18] MEDS: haloperidol 5 mg Tablet PO (16:41)
--- NOTE | 2023-06-18 16:42 | PC.NURSE ---
Patient anxious. Patient reporting anxiety 05/12. Attempts at redirection unsuccessful. Administered 5mg Haldol PO to patient
[2023-06-18] MEDS: trazodone 50 mg Tablet PO (20:10)
[2023-06-18 21:34] VITALS: BP 118/77; PULSE 83; RESP 18; O2SAT 96
[2023-06-19 06:00] VITALS: RESP 15
[2023-06-19] MEDS: hyDROXYzine 25 mg Capsule 50 MG PO (08:36)
[2023-06-19] MEDS: nitrofurantoin SR (BID) 100 mg Capsule PO (08:36)
[2023-06-19] MEDS: CELEcoxib 100 mg Capsule PO (08:36)
[2023-06-19] MEDS: benztropine 1 mg Tablet PO (08:37)
[2023-06-19] MEDS: sulfamethoxazole-trimeth DS 160-800 mg Tablet 1 TAB PO (08:37)
[2023-06-19] MEDS: nicotine 2 mg Gum BUCCAL ×2 (08:39→10:53)
[2023-06-19] MEDS: acetaminophen 325 mg Tablet 650 MG PO (08:41)
[2023-06-19] MEDS: loperamide 2 mg Capsule PO (09:23)
[2023-06-19] MEDS: OLANZapine 5 mg ODT PO (09:35)
--- NOTE | 2023-06-19 11:21 | PC.NURSE ---
SPOKE WITH DR. DIALLO REGARDING PTS SUBOXONE AND GETTING IT RESTARTED PT KEEPS DEMANDING. PT REPORTS SHE RECEIVED HER SUBOXONE PRESCRIPTION WHEN SHE WAS DISCHARGED HERE LAST MONTH ON THE June RAN OUT. PT CONFIRMS SHE DID NOT GO TO HER FOLLOW UP APT BECAUSE I CAN'T FIND A RIDE, THE ONLY DAY I CAN GET A RIDE IS ON FRIDAY AT 100. THIS INFORMATION WAS RELATED TO CASE MANAGEMENT AND TO DR. DIALLO. DR. DIALLO STATES HE IS OKAY WITH LETTING HER DISCHARGE TODAY AND GIVING HER A SUBOXONE PRESCRIPTION FOR 15 DAYS NO REFILS AND SHE MUST FOLLOW UP WITH HER [facility] MEDICATION PROVIDER ON THE OF THIS MONTH PREVIOUSLY SCHEDULED. THIS INFORMATION WAS RELATED TO THE PT. PT WAS VERY HAPPY SHE IS GETTING HER PRESCRIPTION. 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 STATES SHE NEEDS AN UBER. PT HAS COME UP TO THE NURSES STATION YELLING AND DEMANDING SHE BE RELEASED RIGHT NOW, I HAVE SHIT TO DO. PT HAS BEEN REDIRECTED MULTIPLE TIMES WITH LITTLE EFFECT.
--- NOTE | 2023-06-19 12:26 | PC.NURSE ---
PT CONTINUES TO DEMAND TO LEAVE. STATES I'M NOT SPEAKING TO ARKEL AND I'M NOT RIDING WITH HIM,I HAVE PEOPLE THAT WILL COME AND GET ME. ALL INFORMATION WAS GIVEN TO DR. DIALLO REGARDING PTS DEMANDS AND INTRUSIVE BEHAVIORS. PT STATES SHE IS VOLUNTARY AND CAN LEAVE ANYTIME. DR. DIALLO SAID THAT IS WITHIN HER RIGHTS. PT CAME UP TO THE WINDOW AGAIN AND STATED CAN I GO CAN I LEAVE IS MY DISCHARGE IN YET. PT WAS INFORMED THAT SHE CAN LEAVE WHENEVER SHE LIKES. PT STATED GIVE ME THE PAPERS I WILL SIGN THEM. I'M READY TO GET OUTTA THIS BITCH. PT SIGNED AMA PAPER WORK WAS NOTIFIED OF HER [facility] APT. WITH Len GONZALEZ NP ON THE June AT 145 PM. PT STATES SHE WILL BE THERE. ALL MEDICATIONS WERE RETURNED FROM THE [facility]. PT LEFT FACILITY AT 1232 WITH ALL BELONGINGS. ALL QUESTIONS WERE ANSWERED AND SUPPORT VOICED.
[2023-06-19 13:37] VITALS: RESP 15
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
== END 2023-06-19 12:32 | disposition home or self-care (01) | DRG 897 ==
LOC: ER 13:14 → NP 15:57
PROVIDERS: Admitting Provider Psychiatry & Neurology Psychiatry; Emergency Provider Emergency Medicine; Visit Provider Psychiatry & Neurology Psychiatry
DX: F15.10 Other stimulant abuse, uncomplicated (principal); R45.851 Suicidal ideations; F33.9 Major depressive disorder, recurrent, unspecified; Z59.00 Homelessness unspecified; F17.210 Nicotine dependence, cigarettes, uncomplicated
CPT/HCPCS: 36415; 80053; 80306; 80307; 81001; 81025; 85025; 87086; 97165; 99238; 99285

== ENCOUNTER 2023-06-23 02:21 | Emergency (ER) | payer MEDICAID, SELFPAY ==
[2023-06-23 02:22] VITALS: BP 136/91; PULSE 77; RESP 18; TEMP 36.7; O2SAT 79; BMI 35.2
[2023-06-23 02:47] LABS: Basophils # 0.1 10^3/uL (0.0-0.1); Basophils % 0.5 %; Eosinophils # 0.6 10^3/uL (0.0-0.8); Eosinophils % 5.9 %; Hematocrit 37.7 % (37.0-47.0); Hemoglobin 11.7 g/dL (11.5-15.3); Lymphocytes # 3.6 10^3/uL (0.8-4.8); Lymphocytes % 37.3 %; Mean Corpuscular Hemoglobin 25.2 pg (28.0-34.0); Mean Corpuscular Volume 81.3 fl (81-99); Mean Platelet Volume 9.2 fL (7.4-10.4); Monocytes # 0.8 10^3/uL (0.2-0.9); Neutrophils # 4.67 10^3/uL (1.8-7.7); Neutrophils % 48.1 %; Nucleated Red Blood Cells % 0 %; Platelet Count 427 10^3/cmm (130-400); Red Blood Count 4.64 10^6/uL (4.1-5.3); Red Cell Distribution Width 16.7 % (12.1-15.1); White Blood Count 9.7 10^3/uL (4.0-10.0)
[2023-06-23 03:03] LABS: Alanine Aminotransferase 47 U/L (0-33); Albumin Level 4.3 g/dL (3.5-5.2); Alkaline Phosphatase 85 U/L (35-105); Anion Gap 13.4 (5-19); Aspartate Amino Transferase 29 U/L (0-32); Blood Urea Nitrogen 7 mg/dL (6-20); Calcium 9.3 mg/dL (8.5-10.5); Carbon Dioxide 27 mmol/L (22-29); Chloride 103 mmol/L (98-107); Globulin 2.9 g/dL (1.3-4.6); Glomerular Filtration Rate 93.2 mL/min (90-130); Glucose 125 mg/dL (65-115); Osmolality Calculated 287 mOsm/kg (285-295); Potassium 4.4 mmol/L (3.5-5.1); Salicylate 0.4 mg/dL (3-10); Sodium 139 mmol/L (136-145); Total Bilirubin 0.2 mg/dL (0.15-1.2); Total Protein 7.2 g/dL (6.6-8.7)
[2023-06-23 03:11] LABS: Acetaminophen < 5.0 ug/mL (10-30); Alcohol Level < 10 mg/dL (0-10)
[2023-06-23 04:28] LABS: HCG Qualitative Urine. Negative (Negative)
[2023-06-23 04:32] LABS: Add Urine Culture? No; Add Urine Microscopic? YES; Bacteria Urine 2+ /hpf; Bilirubin Urine Neg (Negative); Blood Urine Neg (Negative); Glucose Urine UA Norm (Normal); Ketones Urine Negative (Negative); Leukocyte Esterase Urine Negative (Negative); Nitrate Urine Negative (Negative); Protein Urine Neg (Negative); RBC Urine 0-4 /hpf (0-2); Squamous Epithelial Cell Urine 25-40 /hpf (0-5); Urine Appearance SL Hazy (CLEAR); Urine Color Yellow (Yellow); Urobilinogen Urine Norm (Negative); WBC Urine 0-4 /hpf (0-5); pH Urine 6 (5-7)
[2023-06-23 04:35] LABS: Amphetamines Screen Urine Positive (Negative); Barbiturates Screen Urine Negative (Negative); Benzodiazepines Screen Urine Negative (Negative); Cocaine Screen Urine Negative (Negative); Opiate Screen Urine Negative (Negative); PCP Screen Urine Negative (Negative); THC Screen Urine Positive (Negative)
--- NOTE | 2023-06-23 04:36 | ED.C_ITS ---
Documented by User: Juan Long DO 06/28/23 05:08 HPI - Psych General: Chief Complaint: Psychiatric Symptoms Stated Complaint: Anxiety Time Seen by Provider: 06/23/23 02:28 History of Present Illness: 37-year-old female who was discharged from this facility 3 days or so ago. She presents with acute anxiety. She also states she has been hearing voices, and may be suicidal, although she does not have a plan for this. She notes that she believes she left the psychiatric unit too early on her last visit. She has not had a chance to get her medications refilled. She denies any febrile illnesses. Review of Systems Const: Denies: fever(s) Eyes: Denies: change in vision ENMT: Denies: throat pain Card: Denies: chest pain Resp: Reports: dyspnea (Related to anxiety); Denies: productive cough or non-productive cough GI: Reports: nausea; Denies: abdominal pain or vomiting Neuro: Reports: headache(s) Psych: Reports: anxiety [facility] ED PFSH: Medical History (Updated 06/23/23 @ 15:47 by Sarina Gupta, [facility]) Alcohol use disorder, moderate, dependence Amphetamine use disorder, severe Borderline personality disorder Cannabis use disorder, severe, dependence Major depressive disorder, recurrent severe without psychotic features Nicotine dependence, cigarettes, uncomplicated Psychiatric care Social History Smoking and tobacco status: current every day smoker cigarettes Packs smoked per day: 0.5 Years cigarettes smoked: 22 Quit status (tobacco): has tried quititng Number of times tried to quit tobacco: 3 Second hand smoke exposure: Yes Smoking risk assessment/counseling performed?: Yes Tobacco counseling given: counseling >3 minutes Female Reproductive History: Date of last menstrual period: 06/10/23 Physical Exam Const: COMMON NORMALS: no acute distress GENERAL APPEARANCE: cooperative and lethargic; not ill appearing and not frail appearing ORIENTATION/CONSCIOUSNESS: Yes lethargic HENMT: COMMON NORMALS: normocephalic, atraumatic and Normal external nose present HEAD & SCALP: normocephalic and atraumatic FACE & SINUS: normal facial exam and face symmetric NOSE: Normal external nose present Eye: COMMON NORMALS: Equal, round and reactive pupils present and EOMs intact bilaterally PUPIL: Yes Equal, round and reactive pupils present Neck/C-Spine: GENERAL: Yes trachea midline Chest: CHEST: Yes Symmetrical chest wall rise Resp: COMMON NORMALS: normal respiratory effort, No retractions, No use of a ccessory muscles and clear to auscultation bilaterally AUSCULTATION: clear to auscultation bilaterally Cardio: COMMON NORMALS: regular rate and regular rhythm RATE: regular rate RHYTHM: regular rhythm GI: COMMON NORMALS: Normal to inspection, nondistended, normoactive bowel sounds present Extremity: COMMON NORMALS: no pedal edema Neuro: GARTH COMA SCALE: document GCS findings [place] coma scale eye opening: Spontaneous Garth coma scale verbal response: Orientated Garth coma scale motor response: [place] commands [place] coma scale total score: 15 SENSORIUM/ORIENTATION: Yes lethargic SENSORY EXAM: Yes extremities (intact) Psych: COMMON NORMALS: speech normal SPEECH: Yes normal speech Skin: COMMON NORMALS: no rashes or lesions noted GENERAL SKIN EXAM: no rashes or lesions noted Course Consultations: Consultation #1: Ubaldo Time: 05:47 Vital Signs: Vital signs: Vital Signs Temperature 98.1 F 06/23/23 02:22 Pulse Rate 77 06/23/23 07:32 Respiratory Rate 18 06/23/23 07:32 Blood Pressure 152/108 06/23/23 07:32 Pulse Oximetry 99 06/23/23 07:32 Oxygen Delivery Me thod Room Air 06/23/23 07:32 MDM - Psych Medical Decision Making It is unclear if this patient is actually suicidal or not. She does not have a plan. She was just released from the hospital. It appears that she has failed to fill her medication subscription. She appears to have continued to use amphetamines. She is not intoxicated otherwise. Laboratory work-up is not remarkable. Spoke with psychiatry. His inclination is not to readmit this patient, as she does not appear serious about treatment, and avoidance of addiction tendencies. Consult was written. He will see her in the ER a bit later yet this morning. Medically she is stable. Lab Data 06/23/23 02:32 06/23/23 02:32 Laboratory Results WBC 9.7 10^3/uL (4.0-10.0) 06/23/23 02:32 RBC 4.64 10^6/uL (4.1-5.3) 06/23/23 02:32 Hgb 11.7 g/dL (11.5-15.3) 06/23/23 02:32 Hct 37.7 % (37.0-47.0) 06/23/23 02:32 MCV 81.3 fl (81-99) 06/23/23 02:32 MCH 25.2 pg (28.0-34.0) L 06/23/23 02:32 MCHC 31.0 g/dL (30.0-36.0) 06/23/23 02:32 RDW 16.7 % (12.1-15.1) H 06/23/23 02:32 Plt Count 427 10^3/cmm (130-400) H 06/23/23 02:32 MPV 9.2 fL (7.4-10.4) 06/23/23 02:32 Neut % (Auto) 48.1 % 06/23/23 02:32 Lymph % (Auto) 37.3 % 06/23/23 02:32 [place] % (Auto) 8.0 % 06/23/23 02:32 Eos % (Auto) 5.9 % 06/23/23 02:32 Baso % (Auto) 0.5 % 06/23/23 02:32 Neut # (Auto) 4.67 10^3/uL (1.8-7.7) 06/23/23 02:32 Lymph # (Auto) 3.6 10^3/uL (0.8-4.8) 06/23/23 02:32 [place] # (Auto) 0.8 10^3/uL (0.2-0.9) 06/23/23 02:32 Eos # (Auto) 0.6 10^3/uL (0.0-0.8) 06/23/23 02:32 Baso # (Auto) 0.1 10^3/uL (0.0-0.1) 06/23/23 02:32 Nucleated RBC % (auto) 0 % 06/23/23 02:32 Nucleated RBCs # 0.0 /100WBC 06/23/23 02:32 Sodium 139 mmol/L (136-145) 06/23/23 02:32 Potassium 4.4 mmol/L (3.5-5.1) 06/23/23 02:32 Chloride 103 mmol/L (98-107) 06/23/23 02:32 Carbon Dioxide 27 mmol/L (22-29) 06/23/23 02:32 Anion Gap 13.4 (5-19) 06/23/23 02:32 BUN 7 mg/dL (6-20) 06/23/23 02:32 Creatinine 0.7 mg/dL (0.5-0.9) 06/23/23 02:32 GFR Calculation 93.2 mL/min (90-130) 06/23/23 02:32 Glucose 125 mg/dL (65-115) H 06/23/23 02:32 Calculated Osmolality 287 mOsm/kg (285-295) 06/23/23 02:32 Calcium 9.3 mg/dL (8.5-10.5) 06/23/23 02:32 Total Bilirubin 0.2 mg/dL (0.15-1.2) 06/23/23 02:32 AST 29 U/L (0-32) 06/23/23 02:32 ALT 47 U/L (0-33) H 06/23/23 02:32 Alkaline Phosphatase 85 U/L (35-105) 06/23/23 02:32 Total Protein 7.2 g/dL (6.6-8.7) 06/23/23 02:32 Albumin 4.3 g/dL (3.5-5.2) 06/23/23 02:32 Globulin 2.9 g/dL (1.3-4.6) 06/23/23 02:32 HCG, Qual Negative (Negative) 06/23/23 04:20 Urine Color Yellow (Yellow) 06/23/23 04:20 Urine Appearance Sl hazy (CLEAR) A 06/23/23 04:20 Urine pH 6 (5-7) 06/23/23 04:20 Ur Specific [place] 1.010 (1.005-1.030) 06/23/23 04:20 Urine Protein Neg (Negative) 06/23/23 04:20 Urine Glucose (UA) Norm (Normal) 06/23/23 04:20 Urine Ketones Negative (Negative) 06/23/23 04:20 Urine Blood Neg (Negative) 06/23/23 04:20 Urine Nitrate Negative (Negative) 06/23/23 04:20 Urine Bilirubin Neg (Negative) 06/23/23 04:20 Urine Urobilinogen Norm mg/dL (Negative) 06/23/23 04:20 Ur Leukocyte Esterase Negative (Negative) 06/23/23 04:20 Urine RBC 0-4 /hpf (0-2) H 06/23/23 04:20 Urine WBC 0-4 /hpf (0-5) H 06/23/23 04:20 Ur Squamous Epith Cells 25-40 /hpf (0-5) H 06/23/23 04:20 Amorphous Sediment Not Reportable 06/23/23 04:20 Urine Bacteria 2+ /hpf (NONE) H 06/23/23 04:20 Salicylates 0.4 mg/dL (3-10) L 06/23/23 02:32 Urine Opiates Screen Negative ng/mL (Negative) 06/23/23 04:20 Acetaminophen < 5.0 ug/mL (10-30) L 06/23/23 02:32 Ur Barbiturates Screen Negative ng/mL (Negative) 06/23/23 04:20 Ur Phencyclidine Scrn Negative ng/mL (Negative) 06/23/23 04:20 Ur Amphetamines Screen Positive ng/mL (Negative) H 06/23/23 04:20 U Benzodiazepines Scrn Negative ng/mL (Negative) 06/23/23 04:20 Urine Cocaine Screen Negative ng/mL (Negative) 06/23/23 04:20 U Marijuana (THC) Screen Positive ng/mL (Negative) H 06/23/23 04:20 Ethyl Alcohol < 10 mg/dL (0-10) 06/23/23 02:32 Discharge Plan Discharge Patient Disposition: Home Clinical Impression: Substance use disorder, Borderline personality disorder Condition: Stable Prescriptions: No Action sertraline [Zoloft] 100 mg tablet 100 mg PO .morning Qty: 30 3RF Rx Instructions: Take one tablet every morning quetiapine [Seroquel] 300 mg tablet 300 mg PO BEDTIME Qty: 30 3RF Rx Instructions: Take one tablet at bedtime haloperidol 5 mg tablet 5 mg PO BID PRN (Reason: agitation) Qty: 60 3RF Rx Instructions: Take one tablet twice per day as needed for agitation trazodone 50 mg tablet 50 mg PO BEDTIME PRN (Reason: Sleep) 30 Days Qty: 30 3RF Rx Instructions: Take one tablet at bedtime as needed for sleep buprenorphine-naloxone 8-2 mg film 1 film sublingual BID 30 Days Qty: 60 1RF Rx Instructions: Take one film twice per day cyclobenzaprine 10 mg tablet 10 mg PO BID PRN (Reason: muscle spasm) Qty: 20 0RF celecoxib [Celebrex] 100 mg capsule 100 mg PO BID PRN (Reason: pain) Qty: 20 0RF melatonin 5 mg Tablet 5 - 10 mg PO BEDTIME PRN (Reason: Sleep) Discharge Orders: Discharge ED (Routine); Ordered 06/23/23 Ordered By: Yunior Licona Patient Instructions: Polysubstance Use Disorder (ED) Coding Level of Care Code ED Hand Tacker for Chg Fwd Documented by User: Yunior Licona DO 06/23/23 11:27 HPI - Psych General: Chief Complaint: Psychiatric Symptoms Stated Complaint: Anxiety Time Seen by Provider: 06/23/23 02:28 [facility] ED PFSH: Medical History (Updated 06/23/23 @ 15:47 by Sarina Gupta [facility]) Alcohol use disorder, moderate, dependence Amphetamine use disorder, severe Borderline personality disorder Cannabis use disorder, severe, dependence Major depressive disorder, recurrent severe without psychotic features Nicotine dependence, cigarettes, uncomplicated Psychiatric care Social History Smoking and tobacco status: current every day smoker cigarettes Packs smoked per day: 0.5 Years cigarettes smoked: 22 Quit status (tobacco): has tried quititng Number of times tried to quit tobacco: 3 Second hand smoke exposure: Yes Smoking risk assessment/counseling performed?: Yes Tobacco counseling given: counseling >3 minutes Physical Exam Neuro: GARTH COMA SCALE: document GCS findings [place] coma scale total score: 15 Course Vital Signs: Vital signs: Vital Signs Temperature 98.1 F 06/23/23 02:22 Pulse Rate 77 06/23/23 07:32 Respiratory Rate 18 06/23/23 07:32 Blood Pressure 152/108 06/23/23 07:32 Pulse Oximetry 99 06/23/23 07:32 Oxygen Delivery Me thod Room Air 06/23/23 07:32 MDM - Psych Medical Decision Making It is unclear if this patient is actually suicidal or not. She does not have a plan. She was just released from the hospital. It appears that she has failed to fill her medication subscription. She appears to have continued to use amphetamines. She is not intoxicated otherwise. Laboratory work-up is not remarkable. Spoke with psychiatry. His inclination is not to readmit this patient, as she does not appear serious about treatment, and avoidance of addiction tendencies. Consult was written. He will see her in the ER a bit later yet this morning. Medically she is stable. At change of shift patient remained in the ER waiting for Dr. Connre to see her. He has come and seen her and cleared her for discharge however we identifi ed that she may have been exposed to COVID while she was here on her last hospital stay she was offered COVID testing she refused discussed with her she continues to refuse return if has worsening symptoms. Lab Data 06/23/23 02:32 06/23/23 02:32 Laboratory Results WBC 9.7 10^3/uL (4.0-10.0) 06/23/23 02:32 RBC 4.64 10^6/uL (4.1-5.3) 06/23/23 02:32 Hgb 11.7 g/dL (11.5-15.3) 06/23/23 02:32 Hct 37.7 % (37.0-47.0) 06/23/23 02:32 MCV 81.3 fl (81-99) 06/23/23 02:32 MCH 25.2 pg (28.0-34.0) L 06/23/23 02:32 MCHC 31.0 g/dL (30.0-36.0) 06/23/23 02:32 RDW 16.7 % (12.1-15.1) H 06/23/23 02:32 Plt Count 427 10^3/cmm (130-400) H 06/23/23 02:32 MPV 9.2 fL (7.4-10.4) 06/23/23 02:32 Neut % (Auto) 48.1 % 06/23/23 02:32 Lymph % (Auto) 37.3 % 06/23/23 02:32 [place] % (Auto) 8.0 % 06/23/23 02:32 Eos % (Auto) 5.9 % 06/23/23 02:32 Baso % (Auto) 0.5 % 06/23/23 02:32 Neut # (Auto) 4.67 10^3/uL (1.8-7.7) 06/23/23 02:32 Lymph # (Auto) 3.6 10^3/uL (0.8-4.8) 06/23/23 02:32 [place] # (Auto) 0.8 10^3/uL (0.2-0.9) 06/23/23 02:32 Eos # (Auto) 0.6 10^3/uL (0.0-0.8) 06/23/23 02:32 Baso # (Auto) 0.1 10^3/uL (0.0-0.1) 06/23/23 02:32 Nucleated RBC % (auto) 0 % 06/23/23 02:32 Nucleated RBCs # 0.0 /100WBC 06/23/23 02:32 Sodium 139 mmol/L (136-145) 06/23/23 02:32 Potassium 4.4 mmol/L (3.5-5.1) 06/23/23 02:32 Chloride 103 mmol/L (98-107) 06/23/23 02:32 Carbon Dioxide 27 mmol/L (22-29) 06/23/23 02:32 Anion Gap 13.4 (5-19) 06/23/23 02:32 BUN 7 mg/dL (6-20) 06/23/23 02:32 Creatinine 0.7 mg/dL (0.5-0.9) 06/23/23 02:32 GFR Calculation 93.2 mL/min (90-130) 06/23/23 02:32 Glucose 125 mg/dL (65-115) H 06/23/23 02:32 Calculated Osmolality 287 mOsm/kg (285-295) 06/23/23 02:32 Calcium 9.3 mg/dL (8.5-10.5) 06/23/23 02:32 Total Bilirubin 0.2 mg/dL (0.15-1.2) 06/23/23 02:32 AST 29 U/L (0-32) 06/23/23 02:32 ALT 47 U/L (0-33) H 06/23/23 02:32 Alkaline Phosphatase 85 U/L (35-105) 06/23/23 02:32 Total Protein 7.2 g/dL (6.6-8.7) 06/23/23 02:32 Albumin 4.3 g/dL (3.5-5.2) 06/23/23 02:32 Globulin 2.9 g/dL (1.3-4.6) 06/23/23 02:32 HCG, Qual Negative (Negative) 06/23/23 04:20 Urine Color Yellow (Yellow) 06/23/23 04:20 Urine Appearance Sl hazy (CLEAR) A 06/23/23 04:20 Urine pH 6 (5-7) 06/23/23 04:20 Ur Specific [place] 1.010 (1.005-1.030) 06/23/23 04:20 Urine Protein Neg (Negative) 06/23/23 04:20 Urine Glucose (UA) Norm (Normal) 06/23/23 04:20 Urine Ketones Negative (Negative) 06/23/23 04:20 Urine Blood Neg (Negative) 06/23/23 04:20 Urine Nitrate Negative (Negative) 06/23/23 04:20 Urine Bilirubin Neg (Negative) 06/23/23 04:20 Urine Urobilinogen Norm mg/dL (Negative) 06/23/23 04:20 Ur Leukocyte Esterase Negative (Negative) 06/23/23 04:20 Urine RBC 0-4 /hpf (0-2) H 06/23/23 04:20 Urine WBC 0-4 /hpf (0-5) H 06/23/23 04:20 Ur Squamous Epith Cells 25-40 /hpf (0-5) H 06/23/23 04:20 Amorphous Sediment Not Reportable 06/23/23 04:20 Urine Bacteria 2+ /hpf (NONE) H 06/23/23 04:20 Salicylates 0.4 mg/dL (3-10) L 06/23/23 02:32 Urine Opiates Screen Negative ng/mL (Negative) 06/23/23 04:20 Acetaminophen < 5.0 ug/mL (10-30) L 06/23/23 02:32 Ur Barbiturates Screen Negative ng/mL (Negative) 06/23/23 04:20 Ur Phencyclidine Scrn Negative ng/mL (Negative) 06/23/23 04:20 Ur Amphetamines Screen Positive ng/mL (Negative) H 06/23/23 04:20 U Benzodiazepines Scrn Negative ng/mL (Negative) 06/23/23 04:20 Urine Cocaine Screen Negative ng/mL (Negative) 06/23/23 04:20 U Marijuana (THC) Screen Positive ng/mL (Negative) H 06/23/23 04:20 Ethyl Alcohol < 10 mg/dL (0-10) 06/23/23 02:32 Discharge Plan Discharge Patient Disposition: Home Clinical Impression: Substance use disorder, Borderline personality disorder Condition: Stable Prescriptions: No Action sertraline [Zoloft] 100 mg tablet 100 mg PO .morning Qty: 30 3RF Rx Instructions: Take one tablet every morning quetiapine [Seroquel] 300 mg tablet 300 mg PO BEDTIME Qty: 30 3RF Rx Instructions: Take one tablet at bedtime haloperidol 5 mg tablet 5 mg PO BID PRN (Reason: agitation) Qty: 60 3RF Rx Instructions: Take one tablet twice per day as needed for agitation trazodone 50 mg tablet 50 mg PO BEDTIME PRN (Reason: Sleep) 30 Days Qty: 30 3RF Rx Instructions: Take one tablet at bedtime as needed for sleep buprenorphine-naloxone 8-2 mg film 1 film sublingual BID 30 Days Qty: 60 1RF Rx Instructions: Take one film twice per day cyclobenzaprine 10 mg tablet 10 mg PO BID PRN (Reason: muscle spasm) Qty: 20 0RF celecoxib [Celebrex] 100 mg capsule 100 mg PO BID PRN (Reason: pain) Qty: 20 0RF melatonin 5 mg Tablet 5 - 10 mg PO BEDTIME PRN (Reason: Sleep) Discharge Orders: Discharge ED (Routine); Ordered 06/23/23 Ordered By: Yunior Licona Patient Instructions: Polysubstance Use Disorder (ED) Coding Level of Care Code ED Hand Tacker for Joseline Cisneros
--- NOTE | 2023-06-23 07:25 | PC.NURSE ---
ASKED PT IF SHE WOULD LIKE BREAKFAST. PT REFUSED BREAKFAST.
[2023-06-23 07:32] VITALS: BP 152/108; PULSE 77; RESP 18; O2SAT 99
--- NOTE | 2023-06-23 08:29 | PC.PHAR ---
Addendum entered by Janet Ward 06/23/23 08:36: spoke to cadence from [facility] main pharmacy Original Note: pt states she takes care of her own medications-pt states she has been taking her propranolol 20mg rx bottle dated 05/16/23 [facility] states rx has refills-pt states she hasnt been taking her other meds entered-[facility] pharmacy main states they filled suboxone 8-2mg film bid filled on 05/16/23 26d/s-haloperidol 5mg daily filled 05/16/23 30d/s-melatonin 5mg (brought in bottle)-zyprexa 10mg daily filled 05/16/23 30d/s-quetiapine 300mg hs filled 05/16/23 30d/s-trazodone 50mg hs prn filled 05/16/23-zoloft 100mg daily filled 05/16/23 30d/s [facility] pharmacy states pt has refills on all the rxs except for the suboxone-cinthya person wrote for celebrex 100mg bid prn and flexeril 10mg bid prn written on 06/03/23 pt states she never filled states she couldnt afford to get it filled-notes are made in the pharmacy comments
--- NOTE | 2023-06-23 10:39 | PC.NURSE ---
Assumed care for PT from ruben PHILLIPS at 1020
== END 2023-06-23 10:57 | disposition home or self-care (01) ==
PROVIDERS: Emergency Medicine; Emergency Provider Family Medicine
DX: F60.3 Borderline personality disorder (principal); F19.10 Other psychoactive substance abuse, uncomplicated; F17.210 Nicotine dependence, cigarettes, uncomplicated
CPT/HCPCS: 80053; 80306; 80307; 81001; 81025; 85025; 99283

== ENCOUNTER → 2023-08-18 13:38 | Outpatient (BNVA) | payer MEDICAID, SELFPAY | PROVIDERS: Visit Provider Nurse Practitioner Psychiatric/Mental Health | DX: Z79.899 Other long term (current) drug therapy (principal) | CPT/HCPCS: 80053; 80307 ==

== ENCOUNTER → 2024-04-21 15:52 | Outpatient (BNVA) | payer MEDICAID, SELFPAY ==
[2023-10-28 15:20] VITALS: BP 107/61; BMI 32.9
== END ==
PROVIDERS: Visit Provider Nurse Practitioner Psychiatric/Mental Health
DX: Z79.899 Other long term (current) drug therapy (principal); F11.20 Opioid dependence, uncomplicated
CPT/HCPCS: 80053; 80061; 80307; 83036

== ENCOUNTER → 2025-01-10 16:06 | Outpatient (BNVA) | payer MEDICAID, SELFPAY ==
[2024-04-26 14:29] VITALS: BP 121/74; BMI 32.4
== END ==
PROVIDERS: Visit Provider Nurse Practitioner Psychiatric/Mental Health
DX: Z79.899 Other long term (current) drug therapy (principal)
CPT/HCPCS: 80053; 80061; 80307; 83036

== ENCOUNTER 2025-02-03 09:46 | Outpatient (CLI) | payer OTHER, SELFPAY ==
[2025-01-11 15:45] VITALS: BP 105/69; BMI 32.3
--- NOTE | 2025-02-03 09:57 | XR_ITS ---
WS: [id number] XR lumbar spine 2-3V* [id number] REASON FOR EXAM: LOW BACK PAIN FINDINGS: Normal lumbar spine curvatures. No vertebral body abnormality. Mild narrowing of the L5-S1 disc space. Remaining disc spaces are intact and well preserved. No spondylolysis or significant spondylolisthesis. XR/XR lumbar spine 2-3V* [id number] IMPRESSION: Minimal degenerative spondylosis without significant interval change compared t o 03/20/2023.
--- NOTE | 2025-02-03 09:57 | XR_ITS ---
WS: [id number] XR knee RT 1-2V [id number] REASON FOR EXAM: R KNEE PAIN FINDINGS: No fracture. Intramedullary reticular calcification in the proximal lateral tibia the is not present on examination 09/07/2023. Pattern is suggestive of an enchondroma however this should have been apparent on the previous examination. The medial and lateral joint spaces of the knee are intact and relatively well maintained. There may be mild narrowing of the patellofemoral joint space. There is mild subchondral sclerosis in the medial knee joint compartment and of the 7 articular patella. No effusions or loose bodies. 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 This may be related to diabete s or smoking. Minimal to mild osteoarthritis.
== END 2025-02-03 09:47 | disposition home or self-care (01) ==
DX: Z02.71 Encounter for disability determination (principal); M47.897 Other spondylosis, lumbosacral region; R93.6 Abnormal findings on diagnostic imaging of limbs; M17.11 Unilateral primary osteoarthritis, right knee
CPT/HCPCS: 72100; 73560

== ENCOUNTER → 2025-05-30 14:04 | Outpatient (BNVA) | payer MEDICAID, SELFPAY ==
[2025-01-11 15:45] VITALS: BP 105/69; BMI 32.3
== END ==
DX: Z71.1 Person with feared health complaint in whom no diagnosis is made (principal); Z76.89 Persons encountering health services in other specified circumstances
CPT/HCPCS: 80053; 80061; 83036; 84443; 85025; 87491; 87591; 87661

== ENCOUNTER → 2025-06-03 10:49 | Outpatient (BNVA) | payer MEDICAID, SELFPAY ==
[2025-01-11 15:45] VITALS: BP 105/69; BMI 32.3
== END ==
DX: B37.31 Acute candidiasis of vulva and vagina (principal)
CPT/HCPCS: 81000; 81513; 87077; 87086; 87184; 87481; 87491; 87591; 87624; 87661

== ENCOUNTER → 2025-06-15 13:56 | Outpatient (BNVA) | payer MEDICAID, SELFPAY ==
[2025-06-14 09:57] VITALS: BP 128/82; BMI 31.4
== END ==
PROVIDERS: Visit Provider Nurse Practitioner Psychiatric/Mental Health
DX: Z79.899 Other long term (current) drug therapy (principal)
CPT/HCPCS: 80307

== ENCOUNTER → 2025-06-28 09:54 | Outpatient (BNVA) | payer MEDICAID, SELFPAY ==
[2025-06-14 09:57] VITALS: BP 128/82; BMI 31.4
== END ==
DX: R39.9 Unspecified symptoms and signs involving the genitourinary system (principal)
CPT/HCPCS: 80053; 81000; 87086

== ENCOUNTER → 2025-08-26 10:36 | Outpatient (BNVA) | payer MEDICAID, SELFPAY ==
[2025-06-14 09:57] VITALS: BP 128/82; BMI 31.4
== END ==
DX: E11.9 Type 2 diabetes mellitus without complications (principal)
CPT/HCPCS: 80053; 83036; 85025